=== PATIENT | female | born 1965 | race Caucasian/White ===

== ENCOUNTER 2018-06-22 05:28 | Outpatient (CLI) | payer MEDICARE ==
[~2018-06-22] VITALS: Ht 162.6 cm; Wt 60.3 kg
[~2018-06-22 05:28] MED LIST: ALN70T; FAMO20TA13; NFCORC1000; OMEP-10; TES; [UNRECOGNIZED DRUG - OTHER]
[2018-06-22] MEDS ORDERED: LEVO75TA6 PO (09:12)
[2018-06-22] MEDS ORDERED: [UNRECOGNIZED DRUG - CODE] MC (09:12)
[2018-06-22] MEDS ORDERED: PRED5TAB PO (09:12)
[2018-06-22] MEDS ORDERED: ALBU0.63 IH (09:12)
[2018-06-22] MEDS ORDERED: ATOR20TA49 PO (09:12)
[2018-06-22] MEDS ORDERED: TRAM50TA2 PO (09:12)
[2018-06-22] MEDS ORDERED: DIPH25CA79 PO (09:12)
[2018-06-22] MEDS ORDERED: TRAZ-189 PO (09:12)
== END 2018-06-22 09:26 ==
LOC: PREOP 05:28
PROVIDERS: ATTEND Otolaryngology Otolaryngology/Facial Plastic Surgery
DX: Z01.818 Encounter for other preprocedural examination (principal)

== ENCOUNTER 2018-06-26 07:38 | Day surgery (SDC) | payer MEDICARE ==
[~2018-06-26] VITALS: Ht 162.6 cm; Wt 60.3 kg
[~2018-06-26 07:38] MED LIST changes: +ALBU0.63 IH; +ATOR20TA49 PO; +DIPH25CA79 PO; +LEVO75TA6 PO; +PRED5TAB PO; +TRAM50TA2 PO; +TRAZ-189 PO; +[UNRECOGNIZED DRUG - CODE] MC
[2018-06-26 07:45] VITALS: BP 125/73
[2018-06-26] MEDS ORDERED: LACTATED RINGERS 1,000 ML IV PRN (07:47)
[2018-06-26] MEDS ORDERED: MIDAZOLAM 2 MG/2 ML (VERSED) VIAL IV ONE (09:00)
[2018-06-26] MEDS ORDERED: MIDAZOLAM 2 MG/2 ML (VERSED) VIAL ONE ×2 (09:02→09:17)
[2018-06-26] MEDS ORDERED: DEXAMETHASONE 10 MG/ML (DECADRON) 1 ML VIAL ONE (09:17)
[2018-06-26] MEDS ORDERED: fentaNYL INJECTION 100 MCG/2 ML AMP ONE ×2 (09:17→11:32)
[2018-06-26] MEDS ORDERED: LIDOCAINE PF 2% 5 ML (XYLOCAINE) VIAL ONE (09:17)
[2018-06-26] MEDS ORDERED: proPOfol 200 MG/20 ML (DIPRIVAN) VIAL IV ONE ×2 (09:17→11:37)
[2018-06-26] MEDS ORDERED: ONDANSETRON 4 MG/2 ML (SDV) Z0FRAN ONE (09:17)
[2018-06-26] MEDS ORDERED: ROCURONIUM 10 MG/ML 5 ML SYRINGE IV ONE (09:17)
[2018-06-26] MEDS ORDERED: PHENYLEPHRINE 0.5% NASAL SPR (NEO-SYNEPHRINE) REG ONE (09:22)
[2018-06-26] MEDS ORDERED: LIDOCAINE/EPI 1%-1:100,000 (XYLOCAINE) 20ML ONE (09:22)
[2018-06-26] MEDS ORDERED: SEVOFLURANE (ULTANE) 15 ML INHAL SOLN ONE (09:28)
[2018-06-26] MEDS ORDERED: NEOSTIGMINE 1 MG/ML 5 ML SYRINGE ONE (09:28)
[2018-06-26] MEDS ORDERED: GLYCOPYRROLATE 0.2 MG/ML (ROBINUL) 2 ML VIAL ONE (09:28)
--- NOTE | 2018-06-26 10:57 | Progress Note-Pre Operative ---
Pre-Operative Progress Note H&P Reviewed The H&P was reviewed, patient examined and no changes noted. 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
[2018-06-26] MEDS ORDERED: D5 1/2 NS W/KCL 20 MEQ/L 1,000 ML IV SCH (11:44)
--- NOTE | 2018-06-26 11:44 | Progress Note-Post Operative ---
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 Specimen(s) collected/removed none JALEN POWELL MD Jun 26, 2018 11:44
[2018-06-26] MEDS ORDERED: ACETAMINOPHEN 325 MG TABLET PO PRN (11:45)
[2018-06-26] MEDS ORDERED: PROMETHAZINE INJ 25 MG/ML (PHENERGAN) AMP IVP PRN (11:45)
[2018-06-26] MEDS ORDERED: HYDROcodone/APAP 5 MG/325 MG (LORTAB) TAB PO PRN (11:45)
[2018-06-26] MEDS ORDERED: SUCCINYLCHOLINE INJ 100 MG/5 ML SYR ONE (11:55)
[2018-06-26] MEDS ORDERED: ONDANSETRON 4 MG/2 ML (SDV) Z0FRAN IVP PRN (12:00)
[2018-06-26] MEDS ORDERED: morphine INJ 10 MG/ML 1ML (SYR OR VIAL) IVP ONE (12:00)
[2018-06-26 12:25] VITALS: BP 119/79
[2018-06-26] MEDS ORDERED: ACHD5005 PO (12:36)
[2018-06-26 12:55] VITALS: BP 120/80
[2018-06-26 13:10] VITALS: BP 120/80
--- NOTE | 2018-06-26 13:52 | Anesthesia-General Post-Op ---
General Patient Condition Mental Status/LOC: Same as Preop Cardiovascular: Satisfactory Nausea/Vomiting: Absent Respiratory: Satisfactory Pain: Controlled Complications: Absent Post Op Complications Complications None Follow Up Care/Instructions Patient Instructions None needed. Anesthesia/Patient Condition Patient Condition Patient is doing well, no complaints, stable vital signs, no apparent adverse anesthesia problems. No complications reported per nursing. ANNEMARIE OREILLY CRNA Jun 26, 2018 13:52
--- OUTSIDE RECORDS SUMMARY | 2018-06-28 08:26 | XMS REPORT ---
Author Author KELVIN GRULLON Organization [facility] [address] Address [address] [place] [address] Care Team Providers Care Family Engagement Specialist Name Role Phone KELVIN GRULLON Unavailable PROBLEMS Type Condition ICD9-CM Code DOO82-XH Code Onset Dates Condition Status SNOMED Code Problem Psoriatic spondylitis L40.53 Active 157859889 Problem Environmental allergies Z91.09 Active 847819914 Problem COPD (chronic obstructive pulmonary disease) J44.9 Active 57711470 Problem Mixed hyperlipidemia E78.2 Active 032558424 Problem Psoriasis L40.9 Active 8976079 Problem Neck pain M54.2 Active 21470859 Problem Hypothyroidism, unspecified E03.9 Active 01704515 Problem Postmenopausal osteoporosis M81.0 Active 888964780 Problem Degenerative disc disease, cervical M50.30 Active 98530984 Problem Major depressive disorder, recurrent, severe with psychotic symptoms F33.3 Active 85997522 Problem Overactive bladder N32.81 Active 803970008 Problem Chronic fatigue R53.82 Active 31685212 Problem Hematuria R31.9 Active 08015303 Problem Increased frequency of urination R35.0 Active 579140822 Problem Pubic bone pain M89.9 Active 43451068 ALLERGIES Substance Reaction Event Type Date Status Naproxen Unknown Drug Allergy Mar, Active Cymbalta " Out of Space" Drug Allergy Mar, Active ENCOUNTERS Encounter Location Date Diagnosis [facility] [address] [place] [address] Mar, Mixed hyperlipidemia E78.2 [facility] [address] [place] [address] Feb, [facility] [address] [place] [address] Feb, [facility] [address] [place] [address] Jan, Degenerative disc disease, cervical M50.30 [facility] [address] [place] [address] Jan, [facility] [address] [place] [address] Jan, [facility] [address] [place] [address] [place] [address] Nov, [facility] [address] [place] [address] Oct, [facility] [place] [address] [place] [address] Oct, [facility] [place] [address] [place] [address] Oct, Fungal infection of toenail B35.1 ; Postmenopausal osteoporosis M81.0 and Psoriasis L40.9 [facility] [address] [place] [address] Jul, [facility] [address] [place] [address] Jul, Hypothyroidism, unspecified E03.9 [facility] [address] [place] [address] Jul, Degenerative disc disease, cervical M50.30 [facility] [address] [place] [address] 04 Jul, 2017 Medicare annual wellness visit, initial Z00.00 ; Encounter for immunization Z23 ; Chronic obstructive pulmonary disease, unspecified J44.9 and Patient smokes within 5 minutes of waking Z72.0 [facility] [address] [place] [address] Jun, Neck pain M54.2 and Degenerative disc disease, cervical M50.30 [facility] [address] [place] [address] Jun, Osteoporosis M81.0 ; Hypothyroidism, unspecified E03.9 ; Neck pain M54.2 and COPD (chronic obstructive pulmonary disease) J44.9 [facility] [address] [place] [address] Mar, COPD ( chronic obstructive pulmonary disease) J44.9 and Hypothyroidism, unspecified E03.9 [facility] [address] [place] [address] Feb, [facility] [address] [address] Jan, Pubic bone pain M89.9 ; Chronic fatigue R53.82 ; COPD (chronic obstructive pulmonary disease) J44.9 and Hypothyroidism, unspecified E03.9 [facility] [address] [place] [address] Sep, [facility] [address] [place] [address] August, COPD ( chronic obstructive pulmonary disease) J44.9 [facility] [address] [address] Apr, Environmental allergies Z91.09 [facility] [address] [place] [address] Apr, Environmental allergies Z91.09 [facility] [address] [address] Apr, Environmental allergies Z91.09 and COPD (chronic obstructive pulmonary disease) J44.9 [facility] [address] [place] [address] Mar, [facility] [address] [address] Feb, COPD ( chronic obstructive pulmonary disease) J44.9 [facility] [address] [address] Jan, Dysuria R30.[address] [facility] [address] [address] Dec, Other specified bacterial agents as the cause of diseases classified elsewhere B96.89 and Acute sinusitis, unspecified J01.90 [facility] [address] [address] Dec, Psoriatic arthritis L40.50 and Hypothyroidism, unspecified E03.9 [facility] [address] [place] [address] Oct, Osteoporosis M81.0 [facility] [address] [place] [address] Oct, Psoriatic spondylitis L40.53 ; Osteoporosis M81.0 and Pubic bone pain M89.[address] [address] Jun, Pelvic pain R10.2 and Other constipation K59.[address] [address] May, [address] [address] May, [address] [address] May, [facility] [address] [address] Apr, 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 and Chronic fatigue R53.[address] [address] Mar, [address] [address] Mar, [address] [address] Mar, Overactive bladder N32.81 ; Increased frequency of urination R35.0 ; Hematuria R31.9 and Major depressive disorder, recurrent, severe with psychotic symptoms F33.[address] [address] Jan, Increased frequency of urination R35.0 ; Overactive bladder N32.81 ; Major depressive disorder, recurrent, severe with psychotic symptoms F33.3 and Chronic fatigue R53.[address] [address] Jan, [address] [address] Dec, Influenza vaccine administered V04.81 ; 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 ; Nocturnal hypoxia 327.24 ; Current tobacco use 305.1 and Pneumococcal vaccination administered at current visit V49.[address] [address] Oct, Nocturnal hypoxia 327.24 [facility] [address] [place] [address] Oct, 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 ; 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 and Other malaise and fatigue 780.79 [facility] [address] [place] [address] 16 Oct, 2014 Other malaise and fatigue 780.[address] [address] Oct, Unspecified hypothyroidism 244.9 ; Other malaise and fatigue 780.79 ; Asthma, unspecified, unspecified status 493.90 ; Rash and nonspecific skin eruption 782.1 ; Family history of breast cancer in female V16.3 ; H/O breast implant V43.82 and Other screening mammogram V76.[address] [address] Sep, [address] [address] August, 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 ; Other malaise and fatigue 780.79 ; Exercise counseling V65.41 ; Unspecified hypothyroidism 244.9 and 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 [place] [address] Jul, [place] [id number] [place] [address] Jul, [address] [address] May, [id number] [place] [address] May, [address] [address] May, [place] [id number] [place] [address] Apr, [address] [address] Apr, [facility] [place] [address] [facility] [place] [address] Apr, [facility] [id number] [address] Apr, [facility] [id number] [address] Feb, [facility] [id number] [address] Feb, [facility] [place] [address] [place] [address] Feb, [facility] [place] [address] [place] [address] Jan, [facility] [id number] [address] Jan, [facility] [id number] [address] Oct, [facility] [place] [address] [place] [address] Oct, [facility] [id number] [address] Oct, [facility] [id number] [address] Jun, [facility] [place] [address] [place] [address] Jun, [facility] [place] [address] [place] [address] Apr, [facility] [id number] [address] Apr, [facility] [place] [address] [place] [address] Mar, [facility] [id number] [address] Mar, [facility] [id number] [address] Mar, [facility] [place] [address] [facility] [place] [address] Mar, [facility] [place] [address] [facility] [place] [address] Feb, [facility] [id number] [address] Feb, [facility] [place] [address] [facility] [place] [address] Jan, [facility] [place] [address] [place] [address] Jan, [facility] [id number] [place] [address] Jan, [facility] [id number] [address] Jan, [facility] [id number] [place] [address] Jan, [facility] [place] [address] [place] [address] Jan, [facility] [place] [address] [place] [address] Jan, [facility] [id number] [address] Jan, [facility] [place] [address] [place] [address] Dec, [facility] [id number] [address] Dec, [facility] [id number] [address] Nov, [facility] [id number] [address] Oct, [facility] [id number] [address] Oct, [facility] [id number] [address] Oct, [facility] [id number] [address] Oct, [facility] [id number] [address] August, [facility] [id number] [address] August, [facility] [id number] [address] August, [facility] [id number] [address] August, [facility] [id number] [address] Jul, [facility] [id number] [address] Jul, IMMUNIZATIONS No Known Immunizations SOCIAL HISTORY Never Assessed REASON FOR VISIT started cholesterol medication again and needed refill, also has head congestion for the past month Samuel Rocha RN PLAN OF CARE Activity Details Follow Up prn Reason: VITAL SIGNS Height 65 in 2018-04-01 Weight 141.4 lbs 2018-04-01 Temperature 98.5 degrees Fahrenheit 2018-04-01 Heart Rate 94 bpm 2018-04-01 Respiratory Rate 18 2018-04-01 Oximetry 97 % 2018-04-01 BMI 23.53 kg/m2 2018-04-01 Blood pressure systolic 130 mmHg 2018-04-01 Blood pressure diastolic 68 mmHg 2018-04-01 MEDICATIONS Medication Instructions Dosage Frequency Start Date End Date Duration Status Albuterol Sulfate (2.5 MG/3ML) 0.083% USE 1 AMPULE FOUR TIMES DAILY PER NEBULIZER 30 Not-Taking fluticasone 50 mcg/actuation 2 sprays by Nasal route 1 time per day Jan, Not-Taking Cefuroxime Axetil 250 MG Orally every 12 hrs 1 tablet 12h Mar, 14 days Active Lamisil 250 MG Orally Once a day 1 tablet 24h Oct, Not- Taking ProAir HFA 108 (90 Base) MCG/ACT Inhalation every 4 hrs 2 puffs as needed 4h Not-Taking Fosamax 70 MG Orally once weekly 1 tablet Not-Taking Budesonide 0.5 MG/2ML USE 1 AMPULE FOUR TIMES DAILY PER NEBULIZER 15 Not-Taking Albuterol Sulfate HFA 108 (90 Base) MCG/ACT Inhalation every 6 hrs 2 puffs as needed 6h Jun, Not-Taking Prozac Not-Taking Claritin 10 MG Orally Once a day 1 tablet 24h Not-Taking Tramadol HCl 50 mg Orally every 8 hrs 1-2 tablet as needed 8h Not- Taking VESIcare 10 MG Orally Once a day 1 tablet 24h Mar, Not- Taking Atorvastatin Calcium 20 mg Orally Once a day 1 tablet 24h Jul, Active Benadryl 50 mg Orally once or twice a day as needed for allergies Not-Taking Folic Acid by Oral route Jul, Not-Taking Hydrocodone-Acetaminophen 5-325 MG Orally 2 times a day prn severe pain 1 tablet as needed Nov, Not-Taking Levothyroxine Sodium 75 MCG Orally Once a day 1 tablet 24h Not- Taking trazodone 50 mg 1 Tablet by Oral route 1 time per day at bedtime Oct Not-Taking Meloxicam 15 MG TAKE ONE-HALF TABLET BY MOUTH TWICE DAILY 30 Not -Taking Albuterol Sulfate (2.5 MG/3ML) 0.083% Inhalation 4 times a day 3 ml 6h 30 Not-Taking PredniSONE 5 mg 1.5 Tablet by Oral route 1 time per day Jul, Not-Taking RESULTS No Results PROCEDURES Procedure Date Ordered Result Body Site [facility] VISIT ESTABLISHED PATIENT Apr 01, 2018 INSTRUCTIONS MEDICATIONS ADMINISTERED No Known Medications MEDICAL (GENERAL) HISTORY Type Description Date Medical History Psoriatic arthropathy Medical History Major depressive disorder, recurrent episode, unspecified Medical History Agoraphobia with panic disorder Medical History Unspecified myalgia and myositis Medical History Chronic airway obstruction, not elsewhere classified Medical History Other malaise and fatigue Medical History Other specified acquired hypothyroidism Medical History Major depressive disorder, recurrent episode, severe, specified as with psychotic behavior Medical History Suicide and self-inflicted injury by unspecified means Medical History Unspecified hypothyroidism Medical History COPD (chronic obstructive pulmonary disease) Surgical History hysterectomy Hospitalization History Hospitalization for surgery only
--- OUTSIDE RECORDS SUMMARY | 2018-06-28 08:27 | XMS REPORT ---
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 Active 271292651 Problem Psoriasis L40.9 Active 8677913 Problem Postmenopausal osteoporosis M81.0 Active 388362216 Problem Hypothyroidism, unspecified E03.9 Active 16325773 Problem Environmental allergies Z91.09 Active 870512258 Problem Degenerative disc disease, cervical M50.30 Active 84063553 Problem Neck pain M54.2 Active 12381151 Problem Increased frequency of urination R35.0 Active 606366381 Problem Major depressive disorder, recurrent, severe with psychotic symptoms F33.3 Active 29432716 Problem Suicide and self-inflicted injury by unspecified means E958.9 Active Problem Overactive bladder N32.81 Active 072068224 Problem Chronic fatigue R53.82 Active 96710769 Problem Hematuria R31.9 Active 93078310 ALLERGIES No Information ENCOUNTERS Encounter Location Date Diagnosis [facility] [address] [place] [address] Jan, Degenerative disc disease, cervical M50.30 [facility] [address] [place] [address] Jan, [facility] [address] [place] [address] Jan, [facility] [address] [place] [address] Nov, [facility] [address] [place] [address] Oct, [address] [address] Oct, [facility] [address] [address] Oct, Fungal infection of toenail B35.1 ; Postmenopausal osteoporosis M81.0 and Psoriasis L40.9 [facility] [address] [address] Jul, [facility] [address] [address] Jul, Hypothyroidism, unspecified E03.9 [facility] [address] [address] Jul, Degenerative disc disease, cervical M50.30 [facility] [address] [address] Jul, Medicare annual wellness visit, initial Z00.00 ; Encounter for immunization Z23 ; Chronic obstructive pulmonary disease, unspecified J44.9 and Patient smokes within 5 minutes of waking Z72.0 [facility] [address] [address] Jun, Neck pain M54.2 and Degenerative disc disease, cervical M50.[address] [address] Jun, Osteoporosis M81.0 ; Hypothyroidism, unspecified E03.9 ; Neck pain M54.2 and COPD (chronic obstructive pulmonary disease) J44.[address] [address] Mar, COPD ( chronic obstructive pulmonary disease) J44.9 and Hypothyroidism, unspecified E03.9 [facility] [address] [address] Feb, [address] [address] Jan, Pubic bone pain M89.9 ; Chronic fatigue R53.82 ; COPD (chronic obstructive pulmonary disease) J44.9 and Hypothyroidism, unspecified E03.[address] [address] Sep, [facility] [address] [place] [address] August, COPD ( chronic obstructive pulmonary disease) J44.9 [facility] [address] [address] Apr, Environmental allergies Z91.09 [facility] [address] [address] Apr, Environmental allergies Z91.09 [facility] [address] [address] Apr, Environmental allergies Z91.09 and COPD (chronic obstructive pulmonary disease) J44.9 [facility] [address] [address] Mar, [facility] [address] [address] Feb, COPD ( chronic obstructive pulmonary disease) J44.[address] [address] Jan, Dysuria R30.[address] [address] 19 Dec, 2015 Other specified bacterial agents as the cause of diseases classified elsewhere B96.89 and Acute sinusitis, unspecified J01.[address] [address] 13 Dec, 2015 Psoriatic arthritis L40.50 and Hypothyroidism, unspecified E03.[address] [address] 15 Oct, 2015 Osteoporosis M81.[address] [address] 11 Oct, 2015 Psoriatic spondylitis L40.53 ; Osteoporosis M81.0 and Pubic bone pain M89.[address] [address] 07 Jun, 2015 Pelvic pain R10.2 and Other constipation K59.[address] [address] May, [address] [place] [address] May, [facility] [address] [address] May, [facility] [address] [address] Apr, 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 and Chronic fatigue R53.82 [facility] [address] [address] Mar, [facility] [address] [address] Mar, [facility] [address] [address] Mar, Overactive bladder N32.81 ; Increased frequency of urination R35.0 ; Hematuria R31.9 and Major depressive disorder, recurrent, severe with psychotic symptoms F33.[address] [address] Jan, Increased frequency of urination R35.0 ; Overactive bladder N32.81 ; Major depressive disorder, recurrent, severe with psychotic symptoms F33.3 and Chronic fatigue R53.[address] [address] Jan, [facility] [address] [address] Dec, Influenza vaccine administered V04.81 ; 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 ; Nocturnal hypoxia 327.24 ; Current tobacco use 305.1 and Pneumococcal vaccination administered at current visit V49.[address] [address] Oct, Nocturnal hypoxia 327.[address] [address] Oct, 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41 ; Unspecified hypothyroidism 244.9 and 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 [place] [id number] [place] [address] Jul, [place] [id number] [place] [address] Jul, [address] [address] May, [place] [id number] [place] [address] May, [place] [id number] [place] [address] May, [place] [id number] [place] [address] Apr, [address] [address] Apr, [address] [address] Apr, [place] [id number] [place] [address] Apr, [facility] [address] [place] [id number] [place] [address] Feb, [facility] [address] [place] [id number] [place] [address] Feb, [facility] [place] [address] [place] [address] Feb, [facility] [place] [address] [place] [facility] [place] [address] Jan, [facility] [address] [facility] [id number], [place] [address] Jan, [facility] [address] [id number], [place] [address] Oct, [facility] [place] [address] [place] [address] Oct, [facility] [address] [id number], [place] [address] Oct, [facility] [address] [id number], [place] [address] Jun, [facility] [place] [address] [place] [address] Jun, [facility] [place] [address] [place] [address] Apr, [facility] [address] [id number], [place] [address] Apr, [facility] [place] [address] [place] [address] Mar, [facility] [address] [id number], [place] [address] Mar, [facility] [address] [id number], [place] [address] Mar, [facility] [place] [address] [place] [address] Mar, [facility] [place] [address] [place] [address] Feb, [facility] [address] [id number], [place] [address] Feb, [facility] [place] [address] [place] [address] Jan, [facility] [place] [address] [facility] [place] [address] Jan, [facility] [address] [id number], [place] [address] Jan, [facility] [address] [id number], [place] [address] Jan, [facility] [address] [id number], [place] [address] Jan, [facility] [place] [address] [place] [facility] [place] [address] Jan, [facility] [place] [address] [place] [facility] [place] [address] Jan, [facility] [address] [id number], [place] [address] Jan, [facility] [place] [address] [place] [facility] [place] [address] Dec, [facility] [address] [id number], [place] [address] Dec, [facility] [address] [id number], [place] [address] Nov, [facility] [address] [id number], [place] [address] Oct, [facility] [address] [id number], [place] [address] Oct, [facility] [address] [facility] [id number], [place] [address] Oct, [facility] [address] [facility] [id number][place] [address] Oct, [facility] [address] [facility] [id number], [place] [address] August, [facility] [address] [id number], [place] [address] August, [facility] [address] [facility] [id number], [place] [address] August, [facility] [address] [id number], [place] [address] August, [facility] [address] [facility] [id number], [place] [address] Jul, [facility] [address] [facility] [id number], [place] [address] Jul, IMMUNIZATIONS No Known Immunizations SOCIAL HISTORY Never Assessed REASON FOR VISIT Requests return call PLAN OF CARE VITAL SIGNS MEDICATIONS Unknown Medications RESULTS No Results PROCEDURES No Known procedures INSTRUCTIONS MEDICATIONS ADMINISTERED No Known Medications MEDICAL [...]
--- OUTSIDE RECORDS SUMMARY | 2018-06-28 08:27 | XMS REPORT ---
Author Author KELVIN GRULLON Organization [facility] [address] Address [address] [place] [address] Care Team Providers Care [employer] Name Role Phone KELVIN GRULLON Unavailable PROBLEMS Type Condition ICD9-CM Code ZXB91-KT Code Onset Dates Condition Status SNOMED Code Problem Pubic bone pain M89.9 Active 17748457 Problem COPD (chronic obstructive pulmonary disease) J44.9 Active 78902721 Problem Psoriatic spondylitis L40.53 Active 560920601 Problem Psoriasis L40.9 Active 1810161 Problem Postmenopausal osteoporosis M81.0 Active 430720836 Problem Hypothyroidism, unspecified E03.9 Active 77674928 Problem Environmental allergies Z91.09 Active 062425484 Problem Degenerative disc disease, cervical M50.30 Active 90388277 Problem Neck pain M54.2 Active 80081192 Problem Increased frequency of urination R35.0 Active 071297906 Problem Major depressive disorder, recurrent, severe with psychotic symptoms F33.3 Active 91931210 Problem Suicide and self-inflicted injury by unspecified means E958.9 Active Problem Overactive bladder N32.81 Active 896826693 Problem Chronic fatigue R53.82 Active 47553160 Problem Hematuria R31.9 Active 17391922 ALLERGIES No Information ENCOUNTERS Encounter Location Date Diagnosis [facility] [address] [place] [address] Nov, [facility] [address] [place] [address] Oct, [facility] [address] [place] [address] Oct, [facility] [address] [place] [address] Oct, Fungal infection of toenail B35.1 ; Postmenopausal osteoporosis M81.0 and Psoriasis L40.9 [facility] [address] [place] [address] Jul, [facility] [place] [address] [place] [address] Jul, Hypothyroidism, unspecified E03.9 [facility] [place] [address] [place] [address] Jul, Degenerative disc disease, cervical M50.30 [facility] [place] [address] [place] [address] Jul, Medicare annual wellness visit, initial Z00.00 ; Encounter for immunization Z23 ; Chronic obstructive pulmonary disease, unspecified J44.9 and Patient smokes within 5 minutes of waking Z72.0 [facility] [place] [address] [place] [address] 15 Jun, 2017 Neck pain M54.2 and Degenerative disc disease, cervical M50.30 [facility] [place] [address] [place] [address] Jun, Osteoporosis M81.0 ; Hypothyroidism, unspecified E03.9 ; Neck pain M54.2 and COPD (chronic obstructive pulmonary disease) J44.9 [facility] [place] [address] [place] [address] Mar, COPD ( chronic obstructive pulmonary disease) J44.9 and Hypothyroidism, unspecified E03.9 [facility] [place] [address] [place] [address] Feb, [facility] [address] [address] Jan, Pubic bone pain M89.9 ; Chronic fatigue R53.82 ; COPD (chronic obstructive pulmonary disease) J44.9 and Hypothyroidism, unspecified E03.9 [facility] [place] [address] [place] [address] Sep, [facility] [place] [address] [place] [address] August, COPD ( chronic obstructive pulmonary disease) J44.9 [facility] [place] [address] [place] [address] Apr, Environmental allergies Z91.[address] [address] Apr, Environmental allergies Z91.09 [facility] [place] [address] [place] [address] Apr, Environmental allergies Z91.09 and COPD (chronic obstructive pulmonary disease) J44.9 [facility] [address] [place] [address] Mar, [facility] [address] [address] Feb, COPD ( chronic obstructive pulmonary disease) J44.9 [facility] [address] [place] [address] Jan, Dysuria R30.[address] [address] 19 Dec, 2015 Other specified bacterial agents as the cause of diseases classified elsewhere B96.89 and Acute sinusitis, unspecified J01.[address] [address] Dec, Psoriatic arthritis L40.50 and Hypothyroidism, unspecified E03.[address] [address] Oct, Osteoporosis M81.[address] [address] Oct, Psoriatic spondylitis L40.53 ; Osteoporosis M81.0 and Pubic bone pain M89.[address] [address] Jun, Pelvic pain R10.2 and Other constipation K59.[address] [address] May, [address] [address] May, [address] [address] May, [address] [address] Apr, 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 and Chronic fatigue R53.[address] [address] Mar, [address] [address] Mar, [address] [address] Mar, Overactive bladder N32.81 ; Increased frequency of urination R35.0 ; Hematuria R31.9 and Major depressive disorder, recurrent, severe with psychotic symptoms F33.[address] [address] Jan, Increased frequency of urination R35.0 ; Overactive bladder N32.81 ; Major depressive disorder, recurrent, severe with psychotic symptoms F33.3 and Chronic fatigue R53.[address] [address] Jan, [address] [address] Dec, Influenza vaccine administered V04.81 ; 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 ; Nocturnal hypoxia 327.24 ; Current tobacco use 305.1 and Pneumococcal vaccination administered at current visit V49.[address] [address] Oct, Nocturnal hypoxia 327.[address] [address] Oct, 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 ; 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 and Other malaise and fatigue 780.[address] [address] 16 Oct, 2014 Other malaise and fatigue 780.[address] [address] 15 Oct, 2014 Unspecified hypothyroidism 244.9 ; Other malaise and fatigue 780.79 ; Asthma, unspecified, unspecified status 493.90 ; Rash and nonspecific skin eruption 782.1 ; Family history of breast cancer in female V16.3 ; H/O breast implant V43.82 and Other screening mammogram V76.12 [facility] [place] [address] [place] [address] Sep, [facility] [place] [address] [place] [address] August, 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 ; Other malaise and fatigue 780.79 ; Exercise counseling V65.41 ; Unspecified hypothyroidism 244.9 and 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 [facility] [id number] [place] [address] Jul, [facility] [id number] [place] [address] Jul, [facility] [address] [place] [address] May, [facility] [id number] [place] [address] May, [facility] [address] [place] [id number] [place] [address] May, [facility] [id number] [place] [address] Apr, [facility] [address] [place] [address] Apr, [facility] [address] [place] [address] Apr, [facility] [address] [place], [place] [address] Apr, [facility] [id number] [place] [address] Feb, [facility] [address] [place] [id number] [place] [address] Feb, [facility] [place] [address] [place] [address] Feb, [facility] [place] [address] [place] [address] Jan, [facility] [id number] [place] [address]14 Jan, [facility] [address]65[address], [place] [address] Oct, [facility] [place] [address] [place] [address] Oct, [facility] [address]65[address], [place] [address] Oct, [facility] [address], [place] [address] Jun, [facility] [place] [address] [place] [address] Jun, [facility] [place] [address] [place] [address] Apr, [facility] [address], [place] [address] Apr, [facility] [place] [address] [place] [address] Mar, [facility] [address], [place] [address]- 1733 Mar, [facility] [address], [place] [address] Mar, [facility] [place] [address] [place] [address] Mar, [facility] [place] [address] [place] [address] Feb, [facility] [address], [place] [address]- [address] Feb, [facility] [place] [address] [place] [address] Jan, [facility] [place] [address] [place] [address] Jan, [facility] [address] [id number], [place] [address] Jan, [facility] [id number] [place] [address] [place] [address] Jan, [facility] [address] [id number], [place] [address] Jan, [facility] [place] [address] [place] [facility] [address] Jan, [facility] [place] [address] [place] [facility] [address] Jan, [facility] [address] [id number], [place] [address] Jan, [facility] [place] [address] [place] [address] Dec, [facility] [address] [id number], [place] [address] Dec, [facility] [address] [facility] [id number], [place] [address] Nov, [facility] [address] [id number], [place] [address] Oct, [facility] [address] [id number], [place] [address] Oct, [facility] [address] [facility] [id number], [place] [address] Oct, [facility] [address] [facility] [id number], [place] [address] Oct, [facility] [address] [id number], [place] [address] August, [facility] [address] [id number], [place] [address] August, [facility] [address] [facility] [id number], [place] [address] August, [facility] [address] [facility] [id number], [place] [address] August, [facility] [address] [id number], [place] [address] Jul, [facility] [address] [facility] [id number] [place] [address] Jul, IMMUNIZATIONS No Known Immunizations SOCIAL HISTORY Never Assessed REASON FOR VISIT Medication refill request PLAN OF CARE VITAL SIGNS MEDICATIONS Medication Instructions Dosage Frequency Start Date End Date Duration Status Hydrocodone-Acetaminophen 5-325 MG Orally 2 times a day prn severe pain 1 tablet as needed Nov, Active RESULTS No Results PROCEDURES No Known procedures [...]
--- OUTSIDE RECORDS SUMMARY | 2018-06-28 08:27 | XMS REPORT ---
Author Author KELVIN GRULLON Organization [facility] [address] Address [address] [place] [address] Care Team Providers Care Grades 1 Thru 6 Visiting Teacher Name Role Phone KELVIN GRULLON Unavailable PROBLEMS Type Condition ICD9-CM Code QNY02-JP Code Onset Dates Condition Status SNOMED Code Problem Pubic bone pain M89.9 Active 70155949 Problem COPD (chronic obstructive pulmonary disease) J44.9 Active 75504978 Problem Psoriatic spondylitis L40.53 Active 332608865 Problem Psoriasis L40.9 Active 1624909 Problem Postmenopausal osteoporosis M81.0 Active 079360587 Problem Hypothyroidism, unspecified E03.9 Active 39187348 Problem Environmental allergies Z91.09 Active 789297595 Problem Degenerative disc disease, cervical M50.30 Active 79282446 Problem Neck pain M54.2 Active 35744891 Problem Increased frequency of urination R35.0 Active 717427141 Problem Major depressive disorder, recurrent, severe with psychotic symptoms F33.3 Active 61291129 Problem Suicide and self-inflicted injury by unspecified means E958.9 Active Problem Overactive bladder N32.81 Active 877488047 Problem Chronic fatigue R53.82 Active 89784882 Problem Hematuria R31.9 Active 72821235 ALLERGIES No Information ENCOUNTERS Encounter Location Date [facility] [address] [place] [address] Jan, [facility] [address] [place] [address] Jan, [facility] [address] [place] [address] Nov, [facility] [address] [place] [address] Oct, [facility] [address] [place] [address] Oct, [facility] [address] [place] [address] Oct, Fungal infection of toenail B35.1 ; Postmenopausal osteoporosis M81.0 and Psoriasis L40.9 [facility] [address] [address] Jul, [facility] [address] [address] Jul, Hypothyroidism, unspecified E03.9 [facility] [address] [place] [address] Jul, Degenerative disc disease, cervical M50.30 [facility] [address] [place] [address] Jul, Medicare annual wellness visit, initial Z00.00 ; Encounter for immunization Z23 ; Chronic obstructive pulmonary disease, unspecified J44.9 and Patient smokes within 5 minutes of waking Z72.0 [facility] [address] [place] [address] 15 Jun, 2017 Neck pain M54.2 and Degenerative disc disease, cervical M50.30 [facility] [address] [address] Jun, Osteoporosis M81.0 ; Hypothyroidism, unspecified E03.9 ; Neck pain M54.2 and COPD (chronic obstructive pulmonary disease) J44.9 [facility] [address] [place] [address] Mar, COPD ( chronic obstructive pulmonary disease) J44.9 and Hypothyroidism, unspecified E03.9 [facility] [address] [address] Feb, [facility] [address] [address] Jan, Pubic bone pain M89.9 ; Chronic fatigue R53.82 ; COPD (chronic obstructive pulmonary disease) J44.9 and Hypothyroidism, unspecified E03.9 [facility] [address] [place] [address] Sep, [facility] [address] [address] August, COPD ( chronic obstructive pulmonary disease) J44.9 [facility] [address] [place] [address] Apr, Environmental allergies Z91.09 [facility] [address] [place] [address] Apr, Environmental allergies Z91.09 [facility] [address] [place] [address] Apr, Environmental allergies Z91.09 and COPD (chronic obstructive pulmonary disease) J44.9 [facility] [address] [place] [address] Mar, [facility] [address] [address] Feb, COPD ( chronic obstructive pulmonary disease) J44.9 [facility] [address] [place] [address] Jan, Dysuria R30.[address] [address] 19 Dec, 2015 Other specified bacterial agents as the cause of diseases classified elsewhere B96.89 and Acute sinusitis, unspecified J01.[address] [address] 13 Dec, 2015 Psoriatic arthritis L40.50 and Hypothyroidism, unspecified E03.9 [facility] [address] [place] [address] 15 Oct, 2015 Osteoporosis M81.0 [facility] [address] [place] [address] 11 Oct, 2015 Psoriatic spondylitis L40.53 ; Osteoporosis M81.0 and Pubic bone pain M89.9 [facility] [address] [place] [address] Jun, Pelvic pain R10.2 and Other constipation K59.[address] [address] May, [facility] [address] [place] [address] May, [facility] [address] [place] [address] May, [facility] [address] [place] [address] Apr, 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 and Chronic fatigue R53.[address] [address] Mar, [address] [address] Mar, [address] [address] Mar, Overactive bladder N32.81 ; Increased frequency of urination R35.0 ; Hematuria R31.9 and Major depressive disorder, recurrent, severe with psychotic symptoms F33.[address] [address] Jan, Increased frequency of urination R35.0 ; Overactive bladder N32.81 ; Major depressive disorder, recurrent, severe with psychotic symptoms F33.3 and Chronic fatigue R53.[address] [address] Jan, [address] [address] Dec, Influenza vaccine administered V04.81 ; 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 ; Nocturnal hypoxia 327.24 ; Current tobacco use 305.1 and Pneumococcal vaccination administered at current visit V49.[address] [address] Oct, Nocturnal hypoxia 327.[address] [address] Oct, 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 ; 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 and Other malaise and fatigue 780.[address] [address] Oct, Other malaise and fatigue 780.[address] [address] Oct, Unspecified hypothyroidism 244.9 ; Other malaise and fatigue 780.79 ; Asthma, unspecified, unspecified status 493.90 ; Rash and nonspecific skin eruption 782.1 ; Family history of breast cancer in female V16.3 ; H/O breast implant V43.82 and Other screening mammogram V76.12 [facility] [address] [place] [address] Sep, [facility] [address] [place] [address] August, 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 ; Other malaise and fatigue 780.79 ; Exercise counseling V65.41 ; Unspecified hypothyroidism 244.9 and 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 [place] [id number] [place] [address] Jul, [place] [id number] [place] [address] Jul, [address] [address] May, [place] [id number] [place] [address] May, [place] [id number] [place] [address] May, [place] [id number] [place] [address] Apr, [address] [address] Apr, [address] [address] Apr, [address] [address] Apr, [place] [id number] [place] [address] Feb, [place] [id number] [place] [address] Feb, [address] [address] Feb, [facility] [place] [address] [facility] [place] [address] Jan, [facility] [place] [address] [facility] [id number] [address] Jan, [facility] [place] [address] [facility] [id number], [place] [address] Oct, [facility] [place] [address] [place] [facility] [address] Oct, [facility] [place] [address] [facility] [id number], [place] [address] Oct, [facility] [place] [address] [place] [address] [id number], [place] [address] Jun, [facility] [place] [address] [place] [address] Jun, [facility] [place] [address] [place] [address] Apr, [facility] [place] [address] [id number] [address] Apr, [facility] [place] [address] [place] [address] Mar, [facility] [place] [address] [id number], [place] [address] Mar, [facility] [place] [address] [id number], [place] [address] Mar, [facility] [place] [address] [place] [address] Mar, [facility] [place] [address] [place] [address] Feb, [facility] [place] [address] [id number], [place] [address] Feb, [facility] [place] [address] [place] [address] Jan, [facility] [place] [address] [place] [address] Jan, [facility] [address] [id number] [place] [address] Jan, [facility] [address] [id number] [place] [address] Jan, [facility] [address] [facility] [id number] [place] [address] Jan, [facility] [place] [address] [facility] [place] [address] Jan, [facility] [place] [address] [place] [facility] [address] Jan, [facility] [address] [facility] [id number] [place] [address] Jan, [facility] [place] [address] [facility] [place] [address] Dec, [facility] [address] [facility] [id number] [place] [address] Dec, [facility] [address] [facility] [id number] [place] [address] Nov, [facility] [address] [id number] [place] [address] Oct, [facility] [address] [facility] [id number] [place] [address] Oct, [facility] [address] [id number] [place] [address] Oct, [facility] [address] [id number] [place] [address] Oct, [facility] [address] [id number] [place] [address] August, [facility] [address] [facility] [id number] [place] [address] August, [facility] [address] [facility] [id number] [place] [address] August, [facility] [place] [address] [facility] [id number] [place] [address] August, [facility] [place] [address] [facility] [id number] [place] [address] Jul, [facility] [place] [address] [facility] [id number] [place] [address] Jul, IMMUNIZATIONS No Known Immunizations SOCIAL HISTORY Never Assessed REASON FOR VISIT Need updated referral PLAN OF CARE VITAL SIGNS MEDICATIONS Unknown [...]
--- OUTSIDE RECORDS SUMMARY | 2018-06-28 08:27 | XMS REPORT ---
Author Author KELVIN GRULLON Organization [facility] [address] Address [address] [place] [address] Care Team Providers Care Mortgage Loan Officer Originator Name Role Phone KELVIN GRULLON Unavailable PROBLEMS Type Condition ICD9-CM Code NOM25-NS Code Onset Dates Condition Status SNOMED Code Problem Pubic bone pain M89.9 Active 35709411 Problem COPD (chronic obstructive pulmonary disease) J44.9 Active 75224632 Problem Psoriatic spondylitis L40.53 Active 750255390 Problem Psoriasis L40.9 Active 7488854 Problem Postmenopausal osteoporosis M81.0 Active 165413052 Problem Hypothyroidism, unspecified E03.9 Active 95027153 Problem Environmental allergies Z91.09 Active 184807161 Problem Degenerative disc disease, cervical M50.30 Active 30032981 Problem Neck pain M54.2 Active 09629087 Problem Increased frequency of urination R35.0 Active 850952122 Problem Major depressive disorder, recurrent, severe with psychotic symptoms F33.3 Active 07934919 Problem Suicide and self-inflicted injury by unspecified means E958.9 Active Problem Overactive bladder N32.81 Active 646661584 Problem Chronic fatigue R53.82 Active 24904909 Problem Hematuria R31.9 Active 46923330 ALLERGIES No Information ENCOUNTERS Encounter Location Date Diagnosis [facility] [address] [place] [address] Feb, [facility] [address] [place] [address] Feb, [facility] [address] [place] [address] Jan, Degenerative disc disease, cervical M50.30 [facility] [place] [address] [place] [address] Jan, [facility] [address] [place] [address] Jan, [facility] [address] [place] [address] Nov, [facility] [place] [address] [place] [address] Oct, [facility] [place] [address] [place] [address] Oct, [facility] [place] [address] [place] [address] Oct, Fungal infection of toenail B35.1 ; Postmenopausal osteoporosis M81.0 and Psoriasis L40.9 [facility] [place] [address] [place] [address] Jul, [facility] [address] [address] Jul, Hypothyroidism, unspecified E03.9 [facility] [place] [address] [place] [address] Jul, Degenerative disc disease, cervical M50.30 [facility] [address] [address] 04 Jul, 2017 Medicare annual wellness visit, initial Z00.00 ; Encounter for immunization Z23 ; Chronic obstructive pulmonary disease, unspecified J44.9 and Patient smokes within 5 minutes of waking Z72.0 [facility] [place] [address] [place] [address] Jun, Neck pain M54.2 and Degenerative disc disease, cervical M50.30 [facility] [place] [address] [place] [address] Jun, Osteoporosis M81.0 ; Hypothyroidism, unspecified E03.9 ; Neck pain M54.2 and COPD (chronic obstructive pulmonary disease) J44.9 [facility] [place] [address] [place] [address] Mar, COPD ( chronic obstructive pulmonary disease) J44.9 and Hypothyroidism, unspecified E03.9 [facility] [place] [address] [place] [address] Feb, [facility] [address] [address] Jan, Pubic bone pain M89.9 ; Chronic fatigue R53.82 ; COPD (chronic obstructive pulmonary disease) J44.9 and Hypothyroidism, unspecified E03.9 [facility] [place] [address] [place] [address] Sep, [facility] [address] [address] August, COPD ( chronic obstructive pulmonary disease) J44.9 [facility] [place] [address] [place] [address] Apr, Environmental allergies Z91.09 [facility] [place] [address] [place] [address] Apr, Environmental allergies Z91.09 [facility] [address] [address] Apr, Environmental allergies Z91.09 and COPD (chronic obstructive pulmonary disease) J44.9 [facility] [address] [address] Mar, miEVGENY [address] [address] Feb, COPD ( chronic obstructive pulmonary disease) J44.9 [facility] [address] [address] Jan, Dysuria R30.0 [facility] [address] [address] 19 Dec, 2015 Other specified bacterial agents as the cause of diseases classified elsewhere B96.89 and Acute sinusitis, unspecified J01.90 [facility] [address] [address] 13 Dec, 2015 Psoriatic arthritis L40.50 and Hypothyroidism, unspecified E03.9 [facility] [place] [address] [place] [address] 15 Oct, 2015 Osteoporosis M81.0 [facility] [address] [address] Oct, Psoriatic spondylitis L40.53 ; Osteoporosis M81.0 and Pubic bone pain M89.9 [facility] [address] [address] Jun, Pelvic pain R10.2 and Other constipation K59.[address] [address] May, [facility] [address] [address] May, [facility] [address] [address] May, [facility] [address] [address] Apr, 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 and Chronic fatigue R53.[address] [address] Mar, [facility] [address] [address] Mar, [facility] [address] [address] Mar, Overactive bladder N32.81 ; Increased frequency of urination R35.0 ; Hematuria R31.9 and Major depressive disorder, recurrent, severe with psychotic symptoms F33.[address] [address] Jan, Increased frequency of urination R35.0 ; Overactive bladder N32.81 ; Major depressive disorder, recurrent, severe with psychotic symptoms F33.3 and Chronic fatigue R53.[address] [address] Jan, [address] [address] Dec, Influenza vaccine administered V04.81 ; 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 ; Nocturnal hypoxia 327.24 ; Current tobacco use 305.1 and Pneumococcal vaccination administered at current visit V49.[address] [address] Oct, Nocturnal hypoxia 327.[address] [address] Oct, 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 [address] [place] [address] Oct, Unspecified hypothyroidism 244.9 ; Other malaise and fatigue 780.79 ; Asthma, unspecified, unspecified status 493.90 ; Rash and nonspecific skin eruption 782.1 ; Family history of breast cancer in female V16.3 ; H/O breast implant V43.82 and Other screening mammogram V76.12 [facility] [address] [place] [address] Sep, [address] [address] August, 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 ; Other malaise and fatigue 780.79 ; Exercise counseling V65.41 ; Unspecified hypothyroidism 244.9 and 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 [address] Jul, [place] [id number] [place] [address] Jul, [facility] [address] [place] [address] May, [place] [id number] [place] [address] May, [place] [id number] [place] [address] May, [place] [id number] [place] [address] Apr, [facility] [address] [place] [address] Apr, [address] [address] Apr, [place] [id number] [place] [address] Apr, [facility] [address] [facility] [id number] [address] Feb, [facility] [address] [facility] [id number][place] [address] Feb, [facility] [place] [address] [place] [address] Feb, [facility] [place] [address] [place] [address] Jan, [facility] [address] [facility] [id number], [place] [address] Jan, [facility] [address] [facility] [id number][place] [address] Oct, [facility] [place] [address] [place] [address] Oct, [facility] [address] [id number] [address] Oct, [facility] [address] [id number], [place] [address] Jun, [facility] [place] [address] [place] [address] Jun, [facility] [place] [address] [place] [address] Apr, [facility] [address] [id number], [place] [address] Apr, [facility] [place] [address] [place] [address] Mar, [facility] [address] [id number] [address] Mar, [facility] [address] [id number], [place] [address] Mar, [facility] [place] [address] [place] [address] Mar, [facility] [place] [address] [place] [address] Feb, [facility] [address] [facility] [id number][place] [address] Feb, [facility] [place] [address] [facility] [address] Jan, [facility] [place] [address] [facility] [address] Jan, [facility] [address] [facility] [id number] [address] Jan, [facility] [address] [facility] [id number] [address] Jan, [facility] [address] [facility] [id number] [address] Jan, [facility] [place] [address] [place] [address] Jan, [facility] [place] [address] [facility] [address] Jan, [facility] [address] [facility] [id number] [address] Jan, [facility] [place] [address] [facility] [address] Dec, [facility] [address] [facility] [id number] [address] Dec, [facility] [address] [facility] [id number][place] [address] Nov, [facility] [address] [facility] [id number], [place] [address] Oct, [facility] [address] [facility] [id number], [place] [address] Oct, [facility] [address] [facility] [id number] [address] Oct, [facility] [address] [facility] [id number] [address] Oct, [facility] [address] [facility] [id number] [place] [address] August, [facility] [address] [id number] [address] August, [facility] [address] [id number], [place] [address] August, [facility] [address] [id number] [address] August, [facility] [address] [id number] [address] Jul, [facility] [address], [place] [address] Jul, IMMUNIZATIONS No Known Immunizations SOCIAL HISTORY Never Assessed REASON FOR VISIT controlled refill request PLAN OF CARE VITAL SIGNS MEDICATIONS Medication Instructions Dosage Frequency Start Date End Date Duration Status Tramadol HCl 50 mg Orally every 8 hrs 1-2 tablet as needed 8h Active RESULTS No Results PROCEDURES No Known [...]
--- OUTSIDE RECORDS SUMMARY | 2018-06-28 08:28 | XMS REPORT ---
Author Author KELVIN GRULLON Organization [facility] [address] Address [address] [place] [address] Care Team Providers Care Manipulative Therapy Specialist Name Role Phone KELVIN GRULLON Unavailable PROBLEMS Type Condition ICD9-CM Code JBC59-XO Code Onset Dates Condition Status SNOMED Code Problem Pubic bone pain M89.9 Active 97381542 Problem COPD (chronic obstructive pulmonary disease) J44.9 Active 36161903 Problem Psoriatic spondylitis L40.53 Active 451747555 Problem Psoriasis L40.9 Active 9137877 Problem Postmenopausal osteoporosis M81.0 Active 591322012 Problem Hypothyroidism, unspecified E03.9 Active 61118956 Problem Environmental allergies Z91.09 Active 832536644 Problem Degenerative disc disease, cervical M50.30 Active 22876180 Problem Neck pain M54.2 Active 61022990 Problem Increased frequency of urination R35.0 Active 387144085 Problem Major depressive disorder, recurrent, severe with psychotic symptoms F33.3 Active 73826378 Problem Suicide and self-inflicted injury by unspecified means E958.9 Active Problem Overactive bladder N32.81 Active 567025043 Problem Chronic fatigue R53.82 Active 88489055 Problem Hematuria R31.9 Active 68696138 ALLERGIES Substance Reaction Event Type Date Status Naproxen Unknown Drug Allergy Oct, Active Cymbalta " Out of Space" Drug Allergy Oct, Active ENCOUNTERS Encounter Location Date Diagnosis [facility] [address] [place] [address] Nov, [facility] [address] [place] [address] Oct, [facility] [address] [place] [address] Oct, [facility] [address] [place] [address] Oct, Fungal infection of toenail B35.1 ; Postmenopausal osteoporosis M81.0 and Psoriasis L40.[address] [address] Jul, [address] [address] Jul, Hypothyroidism, unspecified E03.[address] [address] Jul, Degenerative disc disease, cervical M50.[address] [address] Jul, Medicare annual wellness visit, initial Z00.00 ; Encounter for immunization Z23 ; Chronic obstructive pulmonary disease, unspecified J44.9 and Patient smokes within 5 minutes of waking Z72.[address] [address] 15 Jun, 2017 Neck pain M54.2 and Degenerative disc disease, cervical M50.[address] [address] Jun, Osteoporosis M81.0 ; Hypothyroidism, unspecified E03.9 ; Neck pain M54.2 and COPD (chronic obstructive pulmonary disease) J44.[address] [address] Mar, COPD ( chronic obstructive pulmonary disease) J44.9 and Hypothyroidism, unspecified E03.[address] [address] Feb, [address] [address] Jan, Pubic bone pain M89.9 ; Chronic fatigue R53.82 ; COPD (chronic obstructive pulmonary disease) J44.9 and Hypothyroidism, unspecified E03.[address] [address] Sep, [address] [address] August, COPD ( chronic obstructive pulmonary disease) J44.[address] [address] Apr, Environmental allergies Z91.[address] [address] Apr, Environmental allergies Z91.[address] [address] Apr, Environmental allergies Z91.09 and COPD (chronic obstructive pulmonary disease) J44.[address] [address] Mar, [address] [address] Feb, COPD ( chronic obstructive pulmonary disease) J44.[address] [address] Jan, Dysuria R30.[address] [address] 19 Dec, 2015 Other specified bacterial agents as the cause of diseases classified elsewhere B96.89 and Acute sinusitis, unspecified J01.[address] [address] 13 Dec, 2015 Psoriatic arthritis L40.50 and Hypothyroidism, unspecified E03.[address] [address] 15 Oct, 2015 Osteoporosis M81.[address] [address] 11 Oct, 2015 Psoriatic spondylitis L40.53 ; Osteoporosis M81.0 and Pubic bone pain M89.[address] [address] Jun, Pelvic pain R10.2 and Other constipation K59.[address] [address] May, [address] [address] May, [address] [address] May, [address] [address] Apr, 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 and Chronic fatigue R53.[address] [address] Mar, [address] [address] Mar, [address] [address] Mar, Overactive bladder N32.81 ; Increased frequency of urination R35.0 ; Hematuria R31.9 and Major depressive disorder, recurrent, severe with psychotic symptoms F33.[address] [address] Jan, Increased frequency of urination R35.0 ; Overactive bladder N32.81 ; Major depressive disorder, recurrent, severe with psychotic symptoms F33.3 and Chronic fatigue R53.[address] [address] Jan, [address] [address] Dec, Influenza vaccine administered V04.81 ; 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 ; Nocturnal hypoxia 327.24 ; Current tobacco use 305.1 and Pneumococcal vaccination administered at current visit V49.[address] [address] Oct, Nocturnal hypoxia 327.[address] [address] Oct, 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 ; 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 and Other malaise and fatigue 780.[address] [address] Oct, Other malaise and fatigue 780.[address] [address] Oct, Unspecified hypothyroidism 244.9 ; Other malaise and fatigue 780.79 ; Asthma, unspecified, unspecified status 493.90 ; Rash and nonspecific skin eruption 782.1 ; Family history of breast cancer in female V16.3 ; H/O breast implant V43.82 and Other screening mammogram V76.[address] [address] Sep, [address] [address] August, 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 ; Other malaise and fatigue 780.79 ; Exercise counseling V65.41 ; Unspecified hypothyroidism 244.9 and 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 [facility] [address] [address] Jul, [facility] [address] [address] Jul, [facility] [address] [place] [address] May, [facility] [id number] [place] [address] May, [facility] [id number] [place] [address] May, [facility] [address] [address] Apr, [facility] [address] [place] [address] Apr, [facility] [address] [place] [address] Apr, [facility] [address] [address] Apr, [facility] [address] [address] Feb, [facility] [address] [address] Feb, [facility] [address] [place] [address] Feb, [facility] [address] [place] [address] Jan, [facility] [address] [address] Jan, [facility] [address] [address] Oct, [facility] [address] [place] [address] Oct, [facility] [place] [facility] [address] [facility] [id number] [place] [address] Oct, [facility] [place] [facility] [address] [facility] [id number] [address] Jun, [facility] [address] [place] [address] Jun, [facility] [address] [place] [address] Apr, [facility] [place] [facility] [address] [facility] [id number] [address] Apr, [facility] [address] [place] [address] Mar, [facility] [place] [facility] [id number] [address] Mar, [facility] [place] [facility] [id number] [address] Mar, [facility] [address] [place] [address] Mar, [facility] [address] [place] [address] Feb, [facility] [place] [facility] [id number] [address] Feb, [facility] [address] [place] [address] Jan, [facility] [address] [place] [address] Jan, [facility] [place] [facility] [address] [facility] [id number] [address] Jan, [facility] [place] [facility] [id number] [address] Jan, [facility] [place] [facility] [id number] [address] Jan, [facility] [address] [place] [address] Jan, [facility] [address] [place] [address] Jan, [facility] [address] [address] Jan, [facility] [address] [place] [address] Dec, [facility] [address] [address] Dec, [facility] [id number] [place] [address] Nov, [facility] [address] [address] Oct, [facility] [id number] [place] [address] Oct, [facility] [address] [id number] [address] Oct, [facility] [address] [address] Oct, [facility] [address] [address] August, [facility] [address] [address] August, [facility] [address] [address] August, [facility] [address] [address] August, [facility] [address] [address] Jul, [facility] [address] [address] Jul, IMMUNIZATIONS No Known Immunizations SOCIAL HISTORY Never Assessed REASON FOR VISIT L great toenail causing some pain-amorrisonlpn PLAN OF CARE Activity Details Follow Up 3 Months Reason: VITAL SIGNS Height 65 in 2017-10-27 Weight 146.6 lbs 2017-10-27 Temperature 98.4 degrees Fahrenheit 2017-10-27 Heart Rate 89 bpm 2017-10-27 Respiratory Rate 16 2017-10-27 BMI 24.39 kg/m2 2017-10-27 Blood pressure systolic 128 mmHg 2017-10-27 Blood pressure diastolic 70 mmHg 2017-10-27 MEDICATIONS Medication Instructions Dosage Frequency Start Date End Date Duration Status Folic Acid by Oral route Jul, Not-Taking ProAir HFA 108 (90 Base) MCG/ACT Inhalation every 4 hrs 2 puffs as needed 4h Active Lamisil 250 MG Orally Once a day 1 tablet 24h Oct, Active Prozac Not-Taking Tramadol HCl 50 MG Orally every 6 hrs 1 tablet as needed 6h Active Albuterol Sulfate HFA 108 (90 Base) MCG/ACT Inhalation every 6 hrs 2 puffs as needed 6h Jun, Active Fosamax 10 MG Orally Once a day 1 tablet 24h Active Albuterol Sulfate (2.5 MG/3ML) 0.083% Inhalation 4 times a day 3 ml 6h 30 Active trazodone 50 mg 1 Tablet by Oral route 1 time per day at bedtime Oct Active PredniSONE 5 mg 1.5 Tablet by Oral route 1 time per day Jul, Active Claritin 10 MG Orally Once a day 1 tablet 24h Not-Taking Atorvastatin Calcium 20 mg Orally Once a day 1 tablet 24h Jul, 30 day(s) Active Benadryl 50 mg Orally once or twice a day as needed for allergies Active VESIcare 10 MG Orally Once a day 1 tablet 24h Mar, Not- Taking Budesonide 0.5 MG/2ML USE 1 AMPULE FOUR TIMES DAILY PER NEBULIZER 15 Active fluticasone 50 mcg/actuation 2 sprays by Nasal route 1 time per day Jan, Active Levothyroxine Sodium 75 MCG Orally Once a day 1 tablet 24h Active Meloxicam 15 MG TAKE ONE-HALF TABLET BY MOUTH TWICE DAILY 30 Active RESULTS Name Result Date Reference Range DEXA 2017-11-11 PROCEDURES Procedure Date Ordered Result Body Site [facility] VISIT ESTABLISHED PATIENT October 27, 2017 INSTRUCTIONS MEDICATIONS ADMINISTERED No Known Medications MEDICAL [...]
--- OUTSIDE RECORDS SUMMARY | 2018-06-28 08:28 | XMS REPORT ---
Author Author KELVIN GRULLON Organization [facility] [address] Address [address] [place] [address] Care Team Providers Care Field Cane Scale Clerk Name Role Phone KELVIN GRULLON Unavailable PROBLEMS Type Condition ICD9-CM Code XNW21-JF Code Onset Dates Condition Status SNOMED Code Problem Pubic bone pain M89.9 Active 95886549 Problem COPD (chronic obstructive pulmonary disease) J44.9 Active 72980995 Problem Psoriatic spondylitis L40.53 Active 813139031 Problem Psoriasis L40.9 Active 2539732 Problem Postmenopausal osteoporosis M81.0 Active 380782306 Problem Hypothyroidism, unspecified E03.9 Active 85808511 Problem Environmental allergies Z91.09 Active 584556847 Problem Degenerative disc disease, cervical M50.30 Active 11095486 Problem Neck pain M54.2 Active 80076150 Problem Increased frequency of urination R35.0 Active 435570161 Problem Major depressive disorder, recurrent, severe with psychotic symptoms F33.3 Active 02174639 Problem Suicide and self-inflicted injury by unspecified means E958.9 Active Problem Overactive bladder N32.81 Active 399106193 Problem Chronic fatigue R53.82 Active 58378865 Problem Hematuria R31.9 Active 91600221 ALLERGIES No Information ENCOUNTERS Encounter Location Date Diagnosis [facility] [address] [place] [address] Nov, [facility] [address] [place] [address] Oct, [facility] [address] [place] [address] Oct, [facility] [address] [place] [address] Oct, Fungal infection of toenail B35.1 ; Postmenopausal osteoporosis M81.0 and Psoriasis L40.9 [facility] [address] [place] [address] Jul, [facility] [address] [place] [address] Jul, Hypothyroidism, unspecified E03.9 [facility] [address] [address] [place] [address] Jul, Degenerative disc disease, cervical M50.30 [facility] [address] [place] [address] Jul, Medicare annual wellness visit, initial Z00.00 ; Encounter for immunization Z23 ; Chronic obstructive pulmonary disease, unspecified J44.9 and Patient smokes within 5 minutes of waking Z72.0 [facility] [address] [place] [address] 15 Jun, 2017 Neck pain M54.2 and Degenerative disc disease, cervical M50.30 [facility] [address] [place] [address] Jun, Osteoporosis M81.0 ; Hypothyroidism, unspecified E03.9 ; Neck pain M54.2 and COPD (chronic obstructive pulmonary disease) J44.9 [facility] [address] [place] [address] Mar, COPD ( chronic obstructive pulmonary disease) J44.9 and Hypothyroidism, unspecified E03.9 [facility] [address] [place] [address] Feb, [facility] [address] [address] Jan, Pubic bone pain M89.9 ; Chronic fatigue R53.82 ; COPD (chronic obstructive pulmonary disease) J44.9 and Hypothyroidism, unspecified E03.9 [facility] [address] [place] [address] Sep, [facility] [place] [address] [place] [address] August, COPD ( chronic obstructive pulmonary disease) J44.9 [facility] [address] [place] [address] Apr, Environmental allergies Z91.[address] [facility] [address] [address] Apr, Environmental allergies Z91.09 [facility] [address] [place] [address] Apr, Environmental allergies Z91.09 and COPD (chronic obstructive pulmonary disease) J44.9 [facility] [address] [place] [address] Mar, [facility] [address] [address] Feb, COPD ( chronic obstructive pulmonary disease) J44.9 [facility] [address] [place] [address] Jan, Dysuria R30.[address] [address] 19 Dec, 2015 Other specified bacterial agents as the cause of diseases classified elsewhere B96.89 and Acute sinusitis, unspecified J01.[address] [address] Dec, Psoriatic arthritis L40.50 and Hypothyroidism, unspecified E03.[address] [address] Oct, Osteoporosis M81.[address] [address] Oct, Psoriatic spondylitis L40.53 ; Osteoporosis M81.0 and Pubic bone pain M89.[address] [address] Jun, Pelvic pain R10.2 and Other constipation K59.[address] [address] May, [address] [address] May, [address] [address] May, [address] [address] Apr, 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 and Chronic fatigue R53.[address] [address] Mar, [address] [address] Mar, [address] [address] Mar, Overactive bladder N32.81 ; Increased frequency of urination R35.0 ; Hematuria R31.9 and Major depressive disorder, recurrent, severe with psychotic symptoms F33.[address] [address] Jan, Increased frequency of urination R35.0 ; Overactive bladder N32.81 ; Major depressive disorder, recurrent, severe with psychotic symptoms F33.3 and Chronic fatigue R53.[address] [address] Jan, [address] [address] Dec, Influenza vaccine administered V04.81 ; 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 ; Nocturnal hypoxia 327.24 ; Current tobacco use 305.1 and Pneumococcal vaccination administered at current visit V49.[address] [address] Oct, Nocturnal hypoxia 327.[address] [address] Oct, 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 ; 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 and Other malaise and fatigue 780.[address] [address] 16 Oct, 2014 Other malaise and fatigue [address] [address] 15 Oct, 2014 Unspecified hypothyroidism 244.9 ; Other malaise and fatigue 780.79 ; Asthma, unspecified, unspecified status 493.90 ; Rash and nonspecific skin eruption 782.1 ; Family history of breast cancer in female V16.3 ; H/O breast implant V43.82 and Other screening mammogram V76.12 [facility] [address] [place] [address] Sep, [facility] [address] [place] [address] August, 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 ; Other malaise and fatigue 780.79 ; Exercise counseling V65.41 ; Unspecified hypothyroidism 244.9 and 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 [facility] [id number] [place] [address] Jul, [facility] [id number] [place] [address] Jul, [facility] [address] [place] [address] May, [facility] [id number] [place] [address] May, [facility] [address] [place] [id number] [place] [address] May, [facility] [id number] [place] [address] Apr, [facility] [address] [place] [address] Apr, [facility] [address] [place] [address] Apr, [facility] [address] [place] [address], [place] [address] Apr, [facility] [id number] [place] [address] Feb, [facility] [address] [place] [id number] [place] [address] Feb, [facility] [address] [place] [address] Feb, [facility] [address] [place] [address] Jan, [facility] [id number] [place] [address] Jan, [facility] [place] [address], [place] [address] Oct, [facility] [address] [place] [address] Oct, [facility] [address], [place] [address] Oct, [facility] [address], [place] [address] Jun, [facility] [address] [place] [address] Jun, [facility] [address] [place] [address] Apr, [facility] [address], [place] [address] Apr, [facility] [address] [place] [address] Mar, [facility] [address], [place] [address] Mar, [facility] [address], [place] [address] Mar, [facility] [address] [place] [address] Mar, [facility] [address] [place] [address] Feb, [facility] [address], [place] [address] Feb, [facility] [address] [place] [address] Jan, [facility] [place] [address] [place] [address] Jan, [facility] [id number], [place] [address] Jan, [facility] [address] [place] [address] [place] [address] Jan, [facility] [address] [id number], [place] [address] Jan, [facility] [address] [facility] [place] [address] Jan, [facility] [place] [address] [facility] [place] [address] Jan, [facility] [address] [id number], [place] [address] Jan, [facility] [address] [facility] [place] [address] Dec, [facility] [address] [id number], [place] [address] Dec, [facility] [address] [facility] [id number], [place] [address] Nov, [facility] [address] [id number], [place] [address] Oct, [facility] [address] [id number], [place] [address] Oct, [facility] [address] [facility] [id number], [place] [address] Oct, [facility] [address] [facility] [id number], [place] [address] Oct, [facility] [address] [id number], [place] [address] August, [facility] [address] [id number], [place] [address] August, [facility] [address] [facility] [id number], [place] [address] August, [facility] [address] [facility] [id number], [place] [address] August, [facility] [address] [id number], [place] [address] Jul, [facility] [address] [facility] [id number] [address] Jul, IMMUNIZATIONS No Known Immunizations SOCIAL HISTORY Never Assessed REASON FOR VISIT med refill PLAN OF CARE VITAL SIGNS MEDICATIONS Medication Instructions Dosage Frequency Start Date End Date Duration Status Hydrocodone-Acetaminophen 5-325 MG Orally 2 times a day prn severe pain 1 tablet as needed Oct, Active RESULTS No Results PROCEDURES No Known [...]
--- OUTSIDE RECORDS SUMMARY | 2018-06-28 08:28 | XMS REPORT ---
Author Author KEVLIN GRULLON [facility] [address] Address [address] [place] [address] Care Team Providers Care Landcare Facilitator Name Role Phone KELVIN GRULLON Unavailable PROBLEMS Type Condition ICD9-CM Code OWN80-XW Code Onset Dates Condition Status SNOMED Code Problem Pubic bone pain M89.9 Active 70700616 Problem COPD (chronic obstructive pulmonary disease) J44.9 Active 70345329 Problem Psoriatic spondylitis L40.53 Active 932428953 Problem Psoriasis L40.9 Active 6983588 Problem Postmenopausal osteoporosis M81.0 Active 330497462 Problem Hypothyroidism, unspecified E03.9 Active 31089107 Problem Environmental allergies Z91.09 Active 638533763 Problem Degenerative disc disease, cervical M50.30 Active 43885920 Problem Neck pain M54.2 Active 84970356 Problem Increased frequency of urination R35.0 Active 202863926 Problem Major depressive disorder, recurrent, severe with psychotic symptoms F33.3 Active 54675461 Problem Suicide and self-inflicted injury by unspecified means E958.9 Active Problem Overactive bladder N32.81 Active 845813597 Problem Chronic fatigue R53.82 Active 94635748 Problem Hematuria R31.9 Active 59539838 ALLERGIES No Information ENCOUNTERS Encounter Location Date Diagnosis [facility] [address] [place] [address] Nov, [facility] [address] [place] [address] Oct, [facility] [address] [place] [address] Oct, [facility] [address] [place] [address] Oct, Fungal infection of toenail B35.1 ; Postmenopausal osteoporosis M81.0 and Psoriasis L40.9 [facility] [address] [place] [address] Jul, [facility] [address] [address] Jul, Hypothyroidism, unspecified E03.[address] [address] Jul, Degenerative disc disease, cervical M50.[address] [address] Jul, Medicare annual wellness visit, initial Z00.00 ; Encounter for immunization Z23 ; Chronic obstructive pulmonary disease, unspecified J44.9 and Patient smokes within 5 minutes of waking Z72.[address] [address] 15 Jun, 2017 Neck pain M54.2 and Degenerative disc disease, cervical M50.[address] [address] Jun, Osteoporosis M81.0 ; Hypothyroidism, unspecified E03.9 ; Neck pain M54.2 and COPD (chronic obstructive pulmonary disease) J44.[address] [address] Mar, COPD ( chronic obstructive pulmonary disease) J44.9 and Hypothyroidism, unspecified E03.[address] [address] Feb, [address] [address] Jan, Pubic bone pain M89.9 ; Chronic fatigue R53.82 ; COPD (chronic obstructive pulmonary disease) J44.9 and Hypothyroidism, unspecified E03.[address] [address] Sep, [address] [address] August, COPD ( chronic obstructive pulmonary disease) J44.[address] [address] Apr, Environmental allergies Z91.[address] [address] Apr, Environmental allergies Z91.[address] [address] Apr, Environmental allergies Z91.09 and COPD (chronic obstructive pulmonary disease) J44.[address] [address] 05 Mar, [address] [address] Feb, COPD ( chronic obstructive pulmonary disease) J44.[address] [address] Jan, Dysuria R30.[address] [address] 19 Dec, 2015 Other specified bacterial agents as the cause of diseases classified elsewhere B96.89 and Acute sinusitis, unspecified J01.[address] [address] 13 Dec, 2015 Psoriatic arthritis L40.50 and Hypothyroidism, unspecified E03.[address] [address] Oct, Osteoporosis M81.[address] [address] Oct, Psoriatic spondylitis L40.53 ; Osteoporosis M81.0 and Pubic bone pain M89.[address] [address] Jun, Pelvic pain R10.2 and Other constipation K59.[address] [address] May, [address] [address] May, [address] [address] May, [address] [address] Apr, 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 and Chronic fatigue R53.[address] [address] Mar, [address] [address] Mar, [address] [address] Mar, Overactive bladder N32.81 ; Increased frequency of urination R35.0 ; Hematuria R31.9 and Major depressive disorder, recurrent, severe with psychotic symptoms F33.[address] [address] Jan, Increased frequency of urination R35.0 ; Overactive bladder N32.81 ; Major depressive disorder, recurrent, severe with psychotic symptoms F33.3 and Chronic fatigue R53.[address] [address] Jan, [address] [address] Dec, Influenza vaccine administered V04.81 ; 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 ; Nocturnal hypoxia 327.24 ; Current tobacco use 305.1 and Pneumococcal vaccination administered at current visit V49.[address] [address] Oct, Nocturnal hypoxia 327.[address] [address] Oct, 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 ; 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 and Other malaise and fatigue 780.[address] [address] Oct, Other malaise and fatigue 780.[address] [address] Oct, Unspecified hypothyroidism 244.9 ; Other malaise and fatigue 780.79 ; Asthma, unspecified, unspecified status 493.90 ; Rash and nonspecific skin eruption 782.1 ; Family history of breast cancer in female V16.3 ; H/O breast implant V43.82 and Other screening mammogram V76.[address] [address] Sep, [address] [address] August, 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 ; Other malaise and fatigue 780.79 ; Exercise counseling V65.41 ; Unspecified hypothyroidism 244.9 and 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 [facility] [id number] [address] Jul, [facility] [address], [place] [address] Jul, [facility] [place] [address] [place] [address] May, [facility] [address], [place] [address] May, [facility] [address], [place] [address] May, [facility] [address], [place] [address] Apr, [facility] [place] [address] [place] [address] Apr, [facility] [address] [place] [address] Apr, [facility] [address], [place] [address] Apr, [facility] [address], [place] [address] Feb, [facility] [address], [place] [address] Feb, [facility] [address] [place] [address] Feb, [facility] [address] [place] [address] Jan, [facility] [id number], [place] [address] Jan, [facility] [id number], [place] [address] Oct, [facility] [place] [address] [place] [address] Oct, [facility] [id number], [place] [address] Oct, [facility] [address] [facility] [id number] [address] Jun, [facility] [place] [address] [place] [address] Jun, [facility] [address] [place] [address] Apr, [facility] [id number], [place] [address] Apr, [facility] [place] [address] [place] [address] Mar, [facility] [address] [facility] [id number], [place] [address] Mar, [facility] [id number], [place] [address] Mar, [facility] [place] [address] [place] [address] Mar, [facility] [address] [place] [address] Feb, [facility] [id number], [place] [address] Feb, [facility] [place] [address] [place] [address] Jan, [facility] [address] [place] [address] Jan, [facility] [id number], [place] [address] Jan, 2012 [facility] [address] [facility] [id number], [place] [address] Jan, [facility] [id number], [place] [address] Jan, 2012 [facility] [place] [address] [place] [address] Jan, 2012 [facility] [place] [address] [place] [address] Jan, 2012 [facility] [address], [place] [address] Jan, [facility] [address] [facility] [place] [address] Dec, [facility] [address], [place] [address] Dec, [facility] [id number], [place] [address] Nov, [facility] [address], [place] [address] Oct, [facility] [address], [place] [address] Oct, [facility] [address], [place] [address] Oct, [facility] [address], [place] [address] Oct, [facility] [address], [place] [address] August, [facility] [address], [place] [address] August, [facility] [address], [place] [address] August, [facility] [id number], [place] [address] August, [facility] [id number], [place] [address] Jul, [facility] [id number], [place] [address] Jul, IMMUNIZATIONS No Known Immunizations SOCIAL HISTORY [...]
--- OUTSIDE RECORDS SUMMARY | 2018-06-28 08:29 | XMS REPORT ---
Author Author KELVIN GRULLON Organization [facility] Address [address] [place] [address] Care Team Providers Care Tray Drier Operator Name Role Phone KELVIN GRULLON Unavailable PROBLEMS Type Condition ICD9-CM Code KDI35-YQ Code Onset Dates Condition Status SNOMED Code Problem Pubic bone pain M89.9 Active 42832504 Problem COPD (chronic obstructive pulmonary disease) J44.9 Active 86527315 Problem Psoriatic spondylitis L40.53 Active 094191117 Problem Psoriasis L40.9 Active 1055782 Problem Postmenopausal osteoporosis M81.0 Active 259214790 Problem Hypothyroidism, unspecified E03.9 Active 33097102 Problem Environmental allergies Z91.09 Active 049834467 Problem Degenerative disc disease, cervical M50.30 Active 34112778 Problem Neck pain M54.2 Active 23453861 Problem Increased frequency of urination R35.0 Active 581503465 Problem Major depressive disorder, recurrent, severe with psychotic symptoms F33.3 Active 13365269 Problem Suicide and self-inflicted injury by unspecified means E958.9 Active Problem Overactive bladder N32.81 Active 504592142 Problem Chronic fatigue R53.82 Active 65876535 Problem Hematuria R31.9 Active 14737902 ALLERGIES No Information ENCOUNTERS Encounter Location Date Diagnosis [facility] [place] [address] [place] [address] Oct, [facility] [place] [address] [place] [address] Oct, [facility] [place] [address] [place] [address] Oct, Fungal infection of toenail B35.1 ; Postmenopausal osteoporosis M81.0 and Psoriasis L40.9 [facility] [place] [address] [place] [address] Jul, [facility] [place] [address] [place] [address] Jul, Hypothyroidism, unspecified E03.9 [facility] [place] [address] [place] [address] Jul, Degenerative disc disease, cervical M50.30 [facility] [place] [address] [place] [address] Jul, Medicare annual wellness visit, initial Z00.00 ; Encounter for immunization Z23 ; Chronic obstructive pulmonary disease, unspecified J44.9 and Patient smokes within 5 minutes of waking Z72.0 [facility] [place] [address] [place] [address] 15 Jun, 2017 Neck pain M54.2 and Degenerative disc disease, cervical M50.30 [facility] [place] [address] [place] [address] Jun, Osteoporosis M81.0 ; Hypothyroidism, unspecified E03.9 ; Neck pain M54.2 and COPD (chronic obstructive pulmonary disease) J44.9 [facility] [address] [address] Mar, COPD (chronic obstructive pulmonary disease) J44.9 and Hypothyroidism, unspecified E03.9 [facility] [address] [address] Feb, [facility] [place] [address] [place] [address] Jan, Pubic bone pain M89.9 ; Chronic fatigue R53.82 ; COPD (chronic obstructive pulmonary disease) J44.9 and Hypothyroidism, unspecified E03.9 [facility] [address] [address] Sep, [facility] [address] [address] August, COPD (chronic obstructive pulmonary disease) J44.9 [facility] [address] [address] Apr, Environmental allergies Z91.09 [facility] [address] [address] Apr, Environmental allergies Z91.09 [facility] [address] [address] Apr, Environmental allergies Z91.09 and COPD (chronic obstructive pulmonary disease) J44.9 [facility] [address] [address] Mar, [facility] [address] [address] 09 Feb, 2016 COPD (chronic obstructive pulmonary disease) J44.[address] [address] 06 Jan, 2016 Dysuria R30.[address] [address] 19 Dec, 2015 Other specified bacterial agents as the cause of diseases classified elsewhere B96.89 and Acute sinusitis, unspecified J01.[address] [address] 13 Dec, 2015 Psoriatic arthritis L40.50 and Hypothyroidism, unspecified E03.[address] [address] 15 Oct, 2015 Osteoporosis M81.[address] [address] 11 Oct, 2015 Psoriatic spondylitis L40.53 ; Osteoporosis M81.0 and Pubic bone pain M89.[address] [address] Jun, Pelvic pain R10.2 and Other constipation K59.09 [facility] [address] [address] May, [facility] [address] [address] May, [facility] [address] [address] May, [address] [address] Apr, 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 and Chronic fatigue R53.[address] [address] Mar, [facility] [address] [address] Mar, [facility] [address] [address] Mar, Overactive bladder N32.81 ; Increased frequency of urination R35.0 ; Hematuria R31.9 and Major depressive disorder, recurrent, severe with psychotic symptoms F33.[address] [address] Jan, Increased frequency of urination R35.0 ; Overactive bladder N32.81 ; Major depressive disorder, recurrent, severe with psychotic symptoms F33.3 and Chronic fatigue R53.[address] [address] Jan, [address] [address] Dec, Influenza vaccine administered V04.81 ; 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 ; Nocturnal hypoxia 327.24 ; Current tobacco use 305.1 and Pneumococcal vaccination administered at current visit V49.[address] [address] Oct, Nocturnal hypoxia 327.[address] [address] Oct, 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 ; 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 and Other malaise and fatigue 780.[address] [address] 16 Oct, 2014 Other malaise and fatigue 780.[address] [address] Oct, Unspecified hypothyroidism 244.9 ; Other malaise and fatigue 780.79 ; Asthma, unspecified, unspecified status 493.90 ; Rash and nonspecific skin eruption 782.1 ; Family history of breast cancer in female V16.3 ; H/O breast implant V43.82 and Other screening mammogram V76.[address] [address] Sep, [address] [address] August, 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 ; Other malaise and fatigue 780.79 ; Exercise counseling V65.41 ; Unspecified hypothyroidism 244.9 and 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 [facility] [id number], [place] [address] Jul, [facility] [id number] [place] [address] [address] Jul, [address] [address] May, [facility] [id number] [place] [address] [place] [address] May, 2014 [facility] [address] [facility] [id number] [address] May, 2014 [facility] [id number], [place] [address] Apr, [facility] [place] [address] [place] [address] Apr, [facility] [place] [address] [place] [address] Apr, [facility] [id number], [place] [address] Apr, [facility] [address], [place] [address] Feb, [facility] [address], [place] [address] Feb, [facility] [place] [address] [place] [address] Feb, [facility] [address] [place] [address] Jan, [facility] [address], [place] [address] Jan, [facility] [address], [place] [address] Oct, [facility] [place] [address] [place] [address] Oct, [facility] [address], [place] [address] Oct, [facility] [id number], [place] [address] Jun, [facility] [place] [address] [place] [address] Jun, [facility] [place] [address] [place] [address] Apr, [facility] [address], [place] [address] Apr, [facility] [place] [address] [place] [address] 16 Mar, 2013 [facility] [address] [facility] [id number], [place] [address] 16 Mar, 2013 [facility] [address] [facility] [id number], [place] [address] Mar, [facility] [place] [address] [facility] [address] Mar, [facility] [place] [address] [facility] [address] Feb, [facility] [id number] [place] [address] Feb, [facility] [place] [address] [facility] [place] [address] Jan, [facility] [place] [address] [place] [address] Jan, [facility] [id number] [place] [address] Jan, [facility] [id number] [place] [address] 2543 Jan, [facility] [id number] [place] [address] 2546 Jan, [facility] [place] [address] [facility] [place] [address] Jan, [facility] [place] [address] [place] [address] Jan, [facility] [id number], [place] [address] Jan, [facility] [place] [address] [place] [address] Dec, [facility] [id number], [place] [address] Dec, [facility] [id number], [place] [address] Nov, [facility] [id number] [place] [address] Oct, [facility] [address] [facility] [id number], [place] [address] Oct, [facility] [id number], [place] [address] Oct, [facility] [id number], [place] [address] Oct, [facility] [address], [place] [address] August, [facility] [id number], [place] [address] August, [facility] [id number], [place] [address] August, [facility] [id number], [place] [address] August, [facility] [id number], [place] [address] Jul, [facility] [id number], [place] [address] Jul, IMMUNIZATIONS No Known Immunizations SOCIAL HISTORY Never Assessed REASON FOR VISIT Lab (walk-in), [facility] PLAN OF CARE Activity Details Follow Up prn Reason: VITAL SIGNS MEDICATIONS Unknown Medications RESULTS No Results PROCEDURES Procedure Date Ordered Result Body Site LAB NOT BILLED BY [facility] August 04, 2017 MONICA, TAMANNA* August 04, 2017 INSTRUCTIONS MEDICATIONS ADMINISTERED No Known Medications [...]
--- OUTSIDE RECORDS SUMMARY | 2018-06-28 08:29 | XMS REPORT ---
Author Author KELVIN GRULLON [facility] Address [address] [place] [address] Care Team Providers Care Modern Greek Studies Professor Name Role Phone KELVIN GRULLON Unavailable PROBLEMS Type Condition ICD9-CM Code UHF43-RJ Code Onset Dates Condition Status SNOMED Code Problem Pubic bone pain M89.9 Active 81412849 Problem COPD (chronic obstructive pulmonary disease) J44.9 Active 39327805 Problem Psoriatic spondylitis L40.53 Active 890232374 Problem Psoriasis L40.9 Active 1718964 Problem Postmenopausal osteoporosis M81.0 Active 226024212 Problem Hypothyroidism, unspecified E03.9 Active 65118372 Problem Environmental allergies Z91.09 Active 350600533 Problem Degenerative disc disease, cervical M50.30 Active 05659826 Problem Neck pain M54.2 Active 40472956 Problem Increased frequency of urination R35.0 Active 342624445 Problem Major depressive disorder, recurrent, severe with psychotic symptoms F33.3 Active 12022682 Problem Suicide and self-inflicted injury by unspecified means E958.9 Active Problem Overactive bladder N32.81 Active 452015996 Problem Chronic fatigue R53.82 Active 08272729 Problem Hematuria R31.9 Active 77315083 ALLERGIES Substance Reaction Event Type Date Status Naproxen Unknown Drug Allergy Jul, Active Cymbalta " Out of Space" Drug Allergy Jul, Active ENCOUNTERS Encounter Location Date Diagnosis [facility] [address] [place] [address] Oct, [facility] [address] [place] [address] Oct, [facility] [address] [place] [address] Oct, Fungal infection of toenail B35.1 ; Postmenopausal osteoporosis M81.0 and Psoriasis L40.9 [facility] [address] [place] [address] Jul, [facility] [address] [place] [address] Jul, Hypothyroidism, unspecified E03.9 [facility] [place] [address] [place] [address] Jul, Degenerative disc disease, cervical M50.30 [facility] [address] [place] [address] 04 Jul, 2017 Medicare annual wellness visit, initial Z00.00 ; Encounter for immunization Z23 ; Chronic obstructive pulmonary disease, unspecified J44.9 and Patient smokes within 5 minutes of waking Z72.0 [facility] [place] [address] [place] [address] 15 Jun, 2017 Neck pain M54.2 and Degenerative disc disease, cervical M50.30 [facility] [address] [address] 09 Jun, 2017 Osteoporosis M81.0 ; Hypothyroidism, unspecified E03.9 ; Neck pain M54.2 and COPD (chronic obstructive pulmonary disease) J44.9 [facility] [address] [address] Mar, COPD (chronic obstructive pulmonary disease) J44.9 and Hypothyroidism, unspecified E03.9 [facility] [address] [address] Feb, [facility] [address] [address] Jan, Pubic bone pain M89.9 ; Chronic fatigue R53.82 ; COPD (chronic obstructive pulmonary disease) J44.9 and Hypothyroidism, unspecified E03.9 [facility] [address] [address] Sep, [facility] [address] [address] August, COPD (chronic obstructive pulmonary disease) J44.9 [facility] [address] [address] Apr, Environmental allergies Z91.09 [facility] [address] [address] Apr, Environmental allergies Z91.09 [facility] [address] [address] Apr, Environmental allergies Z91.09 and COPD (chronic obstructive pulmonary disease) J44.[address] [address] 05 Mar, 2016 [facility] [address] [address] 09 Feb, 2016 COPD (chronic obstructive pulmonary disease) J44.[address] [address] 06 Jan, 2016 Dysuria R30.[address] [address] 19 Dec, 2015 Other specified bacterial agents as the cause of diseases classified elsewhere B96.89 and Acute sinusitis, unspecified J01.[address] [address] 13 Dec, 2015 Psoriatic arthritis L40.50 and Hypothyroidism, unspecified E03.[address] [address] 15 Oct, 2015 Osteoporosis M81.[address] [address] 11 Oct, 2015 Psoriatic spondylitis L40.53 ; Osteoporosis M81.0 and Pubic bone pain M89.[address] [address] Jun, Pelvic pain R10.2 and Other constipation K59.[address] [address] May, [address] [address] May, [address] [address] May, [address] [address] Apr, 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 and Chronic fatigue R53.[address] [address] Mar, [address] [address] Mar, [address] [address] Mar, Overactive bladder N32.81 ; Increased frequency of urination R35.0 ; Hematuria R31.9 and Major depressive disorder, recurrent, severe with psychotic symptoms F33.[address] [address] 28 Jan, 2015 Increased frequency of urination R35.0 ; Overactive bladder N32.81 ; Major depressive disorder, recurrent, severe with psychotic symptoms F33.3 and Chronic fatigue R53.[address] [address] Jan, [address] [address] Dec, Influenza vaccine administered V04.81 ; 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 ; Nocturnal hypoxia 327.24 ; Current tobacco use 305.1 and Pneumococcal vaccination administered at current visit V49.[address] [address] Oct, Nocturnal hypoxia 327.[address] [address] 17 Oct, 2014 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 ; 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 and Other malaise and fatigue 780.[address] [address] 16 Oct, 2014 Other malaise and fatigue 780.[address] [address] 15 Oct, 2014 Unspecified hypothyroidism 244.9 ; Other malaise and fatigue 780.79 ; Asthma, unspecified, unspecified status 493.90 ; Rash and nonspecific skin eruption 782.1 ; Family history of breast cancer in female V16.3 ; H/O breast implant V43.82 and Other screening mammogram V76.[address] [address] Sep, [address] [address] August, 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 ; Other malaise and fatigue 780.79 ; Exercise counseling V65.41 ; Unspecified hypothyroidism 244.9 and 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 [facility] [address] [facility] [id number] [address] Jul, [facility] [address] [facility] [id number] [place] [address] Jul, [address] [address] May, 2014 [facility] [address] [facility] [id number] [place] [address] May, 2014 [facility] [id number] [address] May, 2014 [facility] [id number] [address] Apr, [facility] [address] [place] [address] Apr, [facility] [address] [facility] [place] [address] Apr, [facility] [address] [place] [address] Apr, [facility] [address] [address] Feb, [facility] [address] [address] Feb, [facility] [place] [address] [place] [address] Feb, [facility] [address] [place] [address] Jan, [facility] [id number] [address] Jan, [facility] [id number] [address] Oct, [facility] [place] [address] [place] [address] Oct, [facility] [id number] [address] Oct, [facility] [address] [address] Jun, [facility] [address] [place] [address] Jun, [facility] [address] [place] [address] Apr, [facility] [address] [facility] [id number] [place] [address] Apr, [facility] [address] [facility] [place] [address] Mar, [facility] [address] [facility] [id number] [place] [address] 16 Mar, 2013 [facility] [address] [place] [address] Mar, [facility] [address] [facility] [place] [address] Mar, [facility] [address] [facility] [place] [address] Feb, [facility] [address] [place] [address] Feb, [facility] [address] [facility] [place] [address] Jan, [facility] [address] [facility] [place] [address] Jan, [facility] [address] [address] Jan, [facility] [address] [place] [address] Jan, [facility] [id number] [address] Jan, [facility] [address] [place] [address] Jan, [facility] [address] [place] [address] Jan, [facility] [id number] [address] Jan, [facility] [address] [place] [address] Dec, [facility] [id number] [address] Dec, [facility] [address] [address] Nov, [facility] [id number] Oct, [facility] [address] Oct, [facility] [id number] [address] Oct, [facility] [address] [address] Oct, [facility] [address] [address] August, [facility] [address] [address] August, [facility] [address] [address] August, [facility] [address] [address] August, [facility] [id number] [address] Jul, [facility] [id number] [address] Jul, IMMUNIZATIONS Vaccine Route Administration Date Status PCV 13 IM Intramuscular July 30, 2017 Administered SOCIAL HISTORY Never Assessed REASON FOR VISIT Medicare AWV - Initial Visit Samuel Rocha RN, talk about MRI of neck PLAN OF CARE Activity Details Follow Up 4 Weeks Reason:lipid VITAL SIGNS Height 65 in 2017-07-30 Weight 145 lbs 2017-07-30 Temperature 98.4 degrees Fahrenheit 2017-07-30 Heart Rate 88 bpm 2017-07-30 Respiratory Rate 18 2017-07-30 BMI 24.13 kg/m2 2017-07-30 Blood pressure systolic 134 mmHg 2017-07-30 Blood pressure diastolic 68 mmHg 2017-07-30 MEDICATIONS Medication Instructions Dosage Frequency Start Date End Date Duration Status Albuterol Sulfate (2.5 MG/3ML) 0.083% Inhalation 4 times a day 3 ml 6h 30 Active Prozac Not-Taking Fosamax 10 MG Orally Once a day 1 tablet 24h Active Levothyroxine Sodium 75 MCG Orally Once a day 1 tablet 24h Active Folic Acid by Oral route Jul, Not-Taking Meloxicam 15 MG TAKE ONE-HALF TABLET BY MOUTH TWICE DAILY 30 Active ProAir HFA 108 (90 Base) MCG/ACT Inhalation every 4 hrs 2 puffs as needed 4h Active VESIcare 10 MG Orally Once a day 1 tablet 24h Mar, Not- Taking PredniSONE 5 mg 1.5 Tablet by Oral route 1 time per day Jul, Active Albuterol Sulfate HFA 108 (90 Base) MCG/ACT Inhalation every 6 hrs 2 puffs as needed 6h Jun, Active trazodone 50 mg 1 Tablet by Oral route 1 time per day at bedtime Oct Active Budesonide 0.5 MG/2ML USE 1 AMPULE FOUR TIMES DAILY PER NEBULIZER 15 Active Benadryl 50 mg Orally once or twice a day as needed for allergies Active fluticasone 50 mcg/actuation 2 sprays by Nasal route 1 time per day Jan, Active Claritin 10 MG Orally Once a day 1 tablet 24h Not-Taking Tramadol HCl 50 MG Orally every 6 hrs 1 tablet as needed 6h Active RESULTS No Results PROCEDURES Procedure Date Ordered Result Body Site COUNT INCLUDES THE [facility] VISIT IPPE/AWV July 30, 2017 ANNUAL VONDA DE PAZT; BHAVANA PPS INIT July 30, 2017 SINGLE IMMUNIZATION ADMIN July 30, 2017 PCV 13 July 30, 2017 PT TOBACCO SCREEN RCVD TLK July 30, 2017 FALL RISK ASSESSMENT DOCD July 30, 2017 COUNT INCLUDES THE [facility] VISIT ESTABLISHED PATIENT July 30, 2017 INSTRUCTIONS MEDICATIONS ADMINISTERED No Known Medications [...]
--- OUTSIDE RECORDS SUMMARY | 2018-06-28 08:29 | XMS REPORT ---
Author Author KELVIN GRULLON Organization [facility] Address [address] [place] [address] Care Team Providers Care Cell Lead Name Role Phone KELVIN GRULLON Unavailable PROBLEMS Type Condition ICD9-CM Code GGG45-LX Code Onset Dates Condition Status SNOMED Code Problem Pubic bone pain M89.9 Active 91570354 Problem COPD (chronic obstructive pulmonary disease) J44.9 Active 43992719 Problem Psoriatic spondylitis L40.53 Active 857157175 Problem Psoriasis L40.9 Active 9804247 Problem Postmenopausal osteoporosis M81.0 Active 595727411 Problem Hypothyroidism, unspecified E03.9 Active 61210681 Problem Environmental allergies Z91.09 Active 008688524 Problem Degenerative disc disease, cervical M50.30 Active 55137680 Problem Neck pain M54.2 Active 51541362 Problem Increased frequency of urination R35.0 Active 208493346 Problem Major depressive disorder, recurrent, severe with psychotic symptoms F33.3 Active 42769778 Problem Suicide and self-inflicted injury by unspecified means E958.9 Active Problem Overactive bladder N32.81 Active 826076641 Problem Chronic fatigue R53.82 Active 29678959 Problem Hematuria R31.9 Active 35813175 ALLERGIES No Information ENCOUNTERS Encounter Location Date Diagnosis [facility] [address] [place] [address] Oct, [facility] [address] [place] [address] Oct, [facility] [address] [place] [address] Oct, Fungal infection of toenail B35.1 ; Postmenopausal osteoporosis M81.0 and Psoriasis L40.9 [facility] [address] [place] [address] Jul, [facility] [address] [place] [address] Jul, Hypothyroidism, unspecified E03.9 [facility] [place] [address] [place] [address] Jul, Degenerative disc disease, cervical M50.30 [facility] [place] [address] [place] [address] Jul, Medicare annual wellness visit, initial Z00.00 ; Encounter for immunization Z23 ; Chronic obstructive pulmonary disease, unspecified J44.9 and Patient smokes within 5 minutes of waking Z72.0 [facility] [place] [address] [place] [address] 15 Jun, 2017 Neck pain M54.2 and Degenerative disc disease, cervical M50.30 [facility] [place] [address] [place] [address] Jun, Osteoporosis M81.0 ; Hypothyroidism, unspecified E03.9 ; Neck pain M54.2 and COPD (chronic obstructive pulmonary disease) J44.9 [facility] [address] [address] Mar, COPD (chronic obstructive pulmonary disease) J44.9 and Hypothyroidism, unspecified E03.9 [facility] [address] [address] Feb, [facility] [address] [place] [address] Jan, Pubic bone pain M89.9 ; Chronic fatigue R53.82 ; COPD (chronic obstructive pulmonary disease) J44.9 and Hypothyroidism, unspecified E03.9 [facility] [address] [address] Sep, [facility] [address] [address] August, COPD (chronic obstructive pulmonary disease) J44.9 [facility] [address] [address] Apr, Environmental allergies Z91.09 [facility] [address] [address] Apr, Environmental allergies Z91.09 [facility] [address] [address] Apr, Environmental allergies Z91.09 and COPD (chronic obstructive pulmonary disease) J44.9 [facility] [address] [address] Mar, [facility] [address] [address] 09 Feb, 2016 COPD (chronic obstructive pulmonary disease) J44.[address] [address] 06 Jan, 2016 Dysuria R30.[address] [address] 19 Dec, 2015 Other specified bacterial agents as the cause of diseases classified elsewhere B96.89 and Acute sinusitis, unspecified J01.[address] [address] 13 Dec, 2015 Psoriatic arthritis L40.50 and Hypothyroidism, unspecified E03.[address] [address] 15 Oct, 2015 Osteoporosis M81.[address] [address] 11 Oct, 2015 Psoriatic spondylitis L40.53 ; Osteoporosis M81.0 and Pubic bone pain M89.[address] [address] Jun, Pelvic pain R10.2 and Other constipation K59.09 [facility] [address] [address] May, [facility] [address] [address] May, [facility] [address] [address] May, [address] [address] Apr, 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 and Chronic fatigue R53.[address] [address] Mar, [facility] [address] [address] Mar, [facility] [address] [address] Mar, Overactive bladder N32.81 ; Increased frequency of urination R35.0 ; Hematuria R31.9 and Major depressive disorder, recurrent, severe with psychotic symptoms F33.[address] [address] Jan, Increased frequency of urination R35.0 ; Overactive bladder N32.81 ; Major depressive disorder, recurrent, severe with psychotic symptoms F33.3 and Chronic fatigue R53.[address] [address] Jan, [address] [address] Dec, Influenza vaccine administered V04.81 ; 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 ; Nocturnal hypoxia 327.24 ; Current tobacco use 305.1 and Pneumococcal vaccination administered at current visit V49.[address] [address] Oct, Nocturnal hypoxia 327.[address] [address] Oct, 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 ; 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 and Other malaise and fatigue 780.[address] [address] 16 Oct, 2014 Other malaise and fatigue 780.[address] [address] Oct, Unspecified hypothyroidism 244.9 ; Other malaise and fatigue 780.79 ; Asthma, unspecified, unspecified status 493.90 ; Rash and nonspecific skin eruption 782.1 ; Family history of breast cancer in female V16.3 ; H/O breast implant V43.82 and Other screening mammogram V76.[address] [address] Sep, [address] [address] August, 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 ; Other malaise and fatigue 780.79 ; Exercise counseling V65.41 ; Unspecified hypothyroidism 244.9 and 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 [facility] [id number], [place] [address] Jul, [facility] [id number] [place] [address] Jul, [address] [address] May, [facility] [id number] [place] [address] [place] [address] May, 2014 [facility] [address] [facility] [id number], [place] [address] May, 2014 [facility] [id number], [place] [address] Apr, [facility] [address] [place] [address] Apr, [facility] [address] [place] [address] Apr, [facility] [id number], [place] [address] Apr, [facility] [address], [place] [address] Feb, [facility] [address], [place] [address] Feb, [facility] [address] [place] [address] Feb, [facility] [address] [place] [address] Jan, [facility] [address], [place] [address] Jan, [facility] [address], [place] [address] Oct, [facility] [address] [place] [address] Oct, [facility] [address], [place] [address] Oct, [facility] [id number], [place] [address] Jun, [facility] [address] [place] [address] Jun, [facility] [address] [place] [address] Apr, [facility] [address], [place] [address] Apr, [facility] [address] [place] [address] 16 Mar, 2013 [facility] [address] [facility] [id number], [place] [address] 16 Mar, 2013 [facility] [address] [facility] [id number], [place] [address] Mar, [facility] [place] [address] [place] [address] Mar, [facility] [place] [address] [place] [address] Feb, [facility] [id number] [place] [address] Feb, [facility] [place] [address] [place] [address] Jan, [facility] [address] [place] [address] Jan, [facility] [id number] [place] [address] Jan, [facility] [id number] [place] [address] Jan, [facility] [id number] [place] [address] 25[address] Jan, [facility] [place] [address] [place] [address] Jan, [facility] [address] [place] [address] Jan, [facility] [id number], [place] [address] Jan, [facility] [address] [place] [address] Dec, [facility] [id number], [place] [address] Dec, [facility] [id number], [place] [address] Nov, [facility] [address] [place] [address] Oct, [facility] [id number], [place] [address] Oct, [facility] [id number], [place] [address] Oct, [facility] [id number], [place] [address] Oct, [facility] [address], [place] [address] August, [facility] [id number], [place] [address] August, [facility] [address], [place] [address] August, [facility] [address], [place] [address] August, [facility] [id number], [place] [address] Jul, [facility] [id number], [place] [address] Jul, IMMUNIZATIONS No Known Immunizations SOCIAL HISTORY Never Assessed REASON FOR VISIT referral for pain doctor PLAN OF CARE VITAL SIGNS MEDICATIONS Unknown [...]
--- OUTSIDE RECORDS SUMMARY | 2018-06-28 08:29 | XMS REPORT ---
Author Author KELVIN GRULLON Organization [facility] Address [address] [place] [address] Care Team Providers Care Tanker Serviceman Name Role Phone KELVIN GRULLON Unavailable PROBLEMS Type Condition ICD9-CM Code CWY31-FR Code Onset Dates Condition Status SNOMED Code Problem Pubic bone pain M89.9 Active 63478808 Problem COPD (chronic obstructive pulmonary disease) J44.9 Active 39970712 Problem Psoriatic spondylitis L40.53 Active 852442506 Problem Psoriasis L40.9 Active 4162718 Problem Postmenopausal osteoporosis M81.0 Active 109700773 Problem Hypothyroidism, unspecified E03.9 Active 80033318 Problem Environmental allergies Z91.09 Active 224039109 Problem Degenerative disc disease, cervical M50.30 Active 36666090 Problem Neck pain M54.2 Active 73034678 Problem Increased frequency of urination R35.0 Active 609509073 Problem Major depressive disorder, recurrent, severe with psychotic symptoms F33.3 Active 93177348 Problem Suicide and self-inflicted injury by unspecified means E958.9 Active Problem Overactive bladder N32.81 Active 374835187 Problem Chronic fatigue R53.82 Active 89016059 Problem Hematuria R31.9 Active 32140971 ALLERGIES No Information ENCOUNTERS Encounter Location Date Diagnosis [facility] [place] [address] [place] [address] Oct, [facility] [place] [address] [place] [address] Oct, [facility] [place] [address] [place] [address] Oct, Fungal infection of toenail B35.1 ; Postmenopausal osteoporosis M81.0 and Psoriasis L40.9 [facility] [place] [address] [place] [address] Jul, [facility] [place] [address] [place] [address] Jul, Hypothyroidism, unspecified E03.9 [facility] [place] [address] [place] [address] Jul, Degenerative disc disease, cervical M50.30 [facility] [place] [address] [place] [address] Jul, Medicare annual wellness visit, initial Z00.00 ; Encounter for immunization Z23 ; Chronic obstructive pulmonary disease, unspecified J44.9 and Patient smokes within 5 minutes of waking Z72.0 [facility] [place] [address] [place] [address] 15 Jun, 2017 Neck pain M54.2 and Degenerative disc disease, cervical M50.30 [facility] [place] [address] [place] [address] Jun, Osteoporosis M81.0 ; Hypothyroidism, unspecified E03.9 ; Neck pain M54.2 and COPD (chronic obstructive pulmonary disease) J44.9 [facility] [address] [address] Mar, COPD (chronic obstructive pulmonary disease) J44.9 and Hypothyroidism, unspecified E03.9 [facility] [address] [address] Feb, [facility] [place] [address] [place] [address] Jan, Pubic bone pain M89.9 ; Chronic fatigue R53.82 ; COPD (chronic obstructive pulmonary disease) J44.9 and Hypothyroidism, unspecified E03.9 [facility] [address] [address] Sep, [facility] [address] [address] August, COPD (chronic obstructive pulmonary disease) J44.9 [facility] [address] [address] Apr, Environmental allergies Z91.09 [facility] [address] [address] Apr, Environmental allergies Z91.09 [facility] [address] [address] Apr, Environmental allergies Z91.09 and COPD (chronic obstructive pulmonary disease) J44.9 [facility] [address] [address] Mar, [facility] [address] [address] 09 Feb, 2016 COPD (chronic obstructive pulmonary disease) J44.[address] [address] 06 Jan, 2016 Dysuria R30.[address] [address] 19 Dec, 2015 Other specified bacterial agents as the cause of diseases classified elsewhere B96.89 and Acute sinusitis, unspecified J01.[address] [address] 13 Dec, 2015 Psoriatic arthritis L40.50 and Hypothyroidism, unspecified E03.[address] [address] 15 Oct, 2015 Osteoporosis M81.[address] [address] 11 Oct, 2015 Psoriatic spondylitis L40.53 ; Osteoporosis M81.0 and Pubic bone pain M89.[address] [address] Jun, Pelvic pain R10.2 and Other constipation K59.09 [facility] [address] [address] May, [facility] [address] [address] May, [facility] [address] [address] May, [address] [address] Apr, 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 and Chronic fatigue R53.[address] [address] Mar, [facility] [address] [address] Mar, [facility] [address] [address] Mar, Overactive bladder N32.81 ; Increased frequency of urination R35.0 ; Hematuria R31.9 and Major depressive disorder, recurrent, severe with psychotic symptoms F33.[address] [address] Jan, Increased frequency of urination R35.0 ; Overactive bladder N32.81 ; Major depressive disorder, recurrent, severe with psychotic symptoms F33.3 and Chronic fatigue R53.[address] [address] Jan, [address] [address] Dec, Influenza vaccine administered V04.81 ; 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 ; Nocturnal hypoxia 327.24 ; Current tobacco use 305.1 and Pneumococcal vaccination administered at current visit V49.[address] [address] Oct, Nocturnal hypoxia 327.[address] [address] Oct, 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 ; 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 and Other malaise and fatigue 780.[address] [address] 16 Oct, 2014 Other malaise and fatigue 780.[address] [address] Oct, Unspecified hypothyroidism 244.9 ; Other malaise and fatigue 780.79 ; Asthma, unspecified, unspecified status 493.90 ; Rash and nonspecific skin eruption 782.1 ; Family history of breast cancer in female V16.3 ; H/O breast implant V43.82 and Other screening mammogram V76.[address] [address] Sep, [address] [address] August, 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 ; Other malaise and fatigue 780.79 ; Exercise counseling V65.41 ; Unspecified hypothyroidism 244.9 and 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 [facility] [id number] [address] Jul, [facility] [id number] [place] [address] [address] Jul, [address] [address] May, [facility] [id number] [place] [address] [place] [address] May, 2014 [facility] [address] [facility] [id number] [address] May, 2014 [facility] [id number], [place] [address] Apr, [facility] [place] [address] [place] [address] Apr, [facility] [place] [address] [place] [address] Apr, [facility] [id number], [place] [address] Apr, [facility] [address], [place] [address] Feb, [facility] [address], [place] [address] Feb, [facility] [place] [address] [place] [address] Feb, [facility] [place] [address] [place] [address] Jan, [facility] [address], [place] [address] Jan, [facility] [address], [place] [address] Oct, [facility] [place] [address] [place] [address] Oct, [facility] [address], [place] [address] Oct, [facility] [id number], [place] [address] Jun, [facility] [place] [address] [place] [address] Jun, [facility] [place] [address] [place] [address] Apr, [facility] [address], [place] [address] Apr, [facility] [place] [address] [place] [address] 16 Mar, 2013 [facility] [address] [facility] [id number], [place] [address] 16 Mar, 2013 [facility] [address] [facility] [id number], [place] [address] Mar, [facility] [place] [address] [place] [address] Mar, [facility] [place] [address] [place] [address] Feb, [facility] [id number] [place] [address] Feb, [facility] [place] [address] [place] [address] Jan, [facility] [place] [address] [place] [address] Jan, [facility] [id number] [place] [address] Jan, [facility] [id number] [place] [address] Jan, [facility] [id number] [place] [address] Jan, [facility] [place] [address] [place] [address] Jan, [facility] [place] [address] [place] [address] Jan, [facility] [id number], [place] [address] Jan, [facility] [place] [address] [place] [address] Dec, [facility] [id number], [place] [address] Dec, [facility] [id number], [place] [address] Nov, [facility] [address] [place] [address] Oct, [facility] [address] [facility] [id number], [place] [address] Oct, [facility] [id number], [place] [address] Oct, [facility] [id number], [place] [address] Oct, [facility] [address] [address] August, [facility] [id number] [address] August, [facility] [address], [place] [address] August, [facility] [address], [place] [address] August, [facility] [id number], [place] [address] Jul, [facility] [id number], [place] [address] Jul, IMMUNIZATIONS No Known Immunizations SOCIAL HISTORY Never Assessed REASON FOR VISIT elevated cholesterol PLAN OF CARE VITAL SIGNS MEDICATIONS Medication Instructions Dosage Frequency Start Date End Date Duration Status Atorvastatin Calcium 20 mg Orally Once a day 1 tablet 24h Jul, 30 day(s) Active RESULTS No Results PROCEDURES No Known [...]
--- OUTSIDE RECORDS SUMMARY | 2018-06-28 08:30 | XMS REPORT ---
Author Author KEVLIN GRULLON Organization [facility] Address [address] [place] [address] Care Team Providers Care Bagman/Woman Name Role Phone KELVIN GRULLON Unavailable PROBLEMS Type Condition ICD9-CM Code GPS44-WK Code Onset Dates Condition Status SNOMED Code Problem Pubic bone pain M89.9 Active 87396950 Problem COPD (chronic obstructive pulmonary disease) J44.9 Active 90596541 Problem Psoriatic spondylitis L40.53 Active 145195052 Problem Psoriasis L40.9 Active 2598985 Problem Postmenopausal osteoporosis M81.0 Active 984577733 Problem Hypothyroidism, unspecified E03.9 Active 32654767 Problem Environmental allergies Z91.09 Active 539188513 Problem Degenerative disc disease, cervical M50.30 Active 80493166 Problem Neck pain M54.2 Active 87183033 Problem Increased frequency of urination R35.0 Active 880981510 Problem Major depressive disorder, recurrent, severe with psychotic symptoms F33.3 Active 08522518 Problem Suicide and self-inflicted injury by unspecified means E958.9 Active Problem Overactive bladder N32.81 Active 689160783 Problem Chronic fatigue R53.82 Active 81512234 Problem Hematuria R31.9 Active 81269690 ALLERGIES No Information ENCOUNTERS Encounter Location Date Diagnosis [facility] [place] [address] [place] [address] Oct, [facility] [place] [address] [place] [address] Oct, [facility] [place] [address] [place] [address] Oct, Fungal infection of toenail B35.1 ; Postmenopausal osteoporosis M81.0 and Psoriasis L40.9 [facility] [place] [address] [place] [address] Jul, [facility] [place] [address] [place] [address] Jul, Hypothyroidism, unspecified E03.9 [facility] [place] [address] [place] [address] Jul, Degenerative disc disease, cervical M50.30 [facility] [place] [address] [place] [address] Jul, Medicare annual wellness visit, initial Z00.00 ; Encounter for immunization Z23 ; Chronic obstructive pulmonary disease, unspecified J44.9 and Patient smokes within 5 minutes of waking Z72.0 [facility] [place] [address] [place] [address] 15 Jun, 2017 Neck pain M54.2 and Degenerative disc disease, cervical M50.30 [facility] [place] [address] [place] [address] Jun, Osteoporosis M81.0 ; Hypothyroidism, unspecified E03.9 ; Neck pain M54.2 and COPD (chronic obstructive pulmonary disease) J44.9 [facility] [address] [address] Mar, COPD (chronic obstructive pulmonary disease) J44.9 and Hypothyroidism, unspecified E03.9 [facility] [address] [address] Feb, [facility] [place] [address] [place] [address] Jan, Pubic bone pain M89.9 ; Chronic fatigue R53.82 ; COPD (chronic obstructive pulmonary disease) J44.9 and Hypothyroidism, unspecified E03.9 [facility] [address] [address] Sep, [facility] [address] [address] August, COPD (chronic obstructive pulmonary disease) J44.9 [facility] [address] [address] Apr, Environmental allergies Z91.09 [facility] [address] [address] Apr, Environmental allergies Z91.09 [facility] [address] [address] Apr, Environmental allergies Z91.09 and COPD (chronic obstructive pulmonary disease) J44.9 [facility] [address] [address] Mar, [facility] [address] [address] Feb, COPD (chronic obstructive pulmonary disease) J44.[address] [address] 06 Jan, 2016 Dysuria R30.[address] [address] 19 Dec, 2015 Other specified bacterial agents as the cause of diseases classified elsewhere B96.89 and Acute sinusitis, unspecified J01.[address] [address] 13 Dec, 2015 Psoriatic arthritis L40.50 and Hypothyroidism, unspecified E03.[address] [address] 15 Oct, 2015 Osteoporosis M81.[address] [address] 11 Oct, 2015 Psoriatic spondylitis L40.53 ; Osteoporosis M81.0 and Pubic bone pain M89.[address] [address] Jun, Pelvic pain R10.2 and Other constipation K59.[address] [address] May, [address] [address] May, [address] [address] May, [address] [address] Apr, 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 and Chronic fatigue R53.[address] [address] Mar, [facility] [address] [address] Mar, [facility] [address] [address] Mar, Overactive bladder N32.81 ; Increased frequency of urination R35.0 ; Hematuria R31.9 and Major depressive disorder, recurrent, severe with psychotic symptoms F33.[address] [address] Jan, Increased frequency of urination R35.0 ; Overactive bladder N32.81 ; Major depressive disorder, recurrent, severe with psychotic symptoms F33.3 and Chronic fatigue R53.[address] [address] Jan, [address] [address] Dec, Influenza vaccine administered V04.81 ; 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 ; Nocturnal hypoxia 327.24 ; Current tobacco use 305.1 and Pneumococcal vaccination administered at current visit V49.[address] [address] Oct, Nocturnal hypoxia 327.[address] [address] Oct, 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 ; 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 and Other malaise and fatigue 780.[address] [address] 16 Oct, 2014 Other malaise and fatigue 780.[address] [address] Oct, Unspecified hypothyroidism 244.9 ; Other malaise and fatigue 780.79 ; Asthma, unspecified, unspecified status 493.90 ; Rash and nonspecific skin eruption 782.1 ; Family history of breast cancer in female V16.3 ; H/O breast implant V43.82 and Other screening mammogram V76.[address] [address] Sep, [address] [address] August, 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 ; Other malaise and fatigue 780.79 ; Exercise counseling V65.41 ; Unspecified hypothyroidism 244.9 and 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 [facility] [id number], [place] [address] Jul, [facility] [id number] [place] [address] Jul, [address] [address] May, [facility] [id number] [place] [address] May, 2014 [facility] [id number], [place] [address] May, [facility] [id number], [place] [address] Apr, [facility] [place] [address] [place] [address] Apr, [facility] [place] [address] [place] [address] Apr, [facility] [id number], [place] [address] Apr, [facility] [address], [place] [address] Feb, [facility] [address], [place] [address] Feb, [facility] [place] [address] [place] [address] Feb, [facility] [place] [address] [place] [address] Jan, [facility] [address], [place] [address] Jan, [facility] [id number], [place] [address] Oct, [facility] [place] [address] [place] [address] Oct, [facility] [address], [place] [address] Oct, [facility] [id number], [place] [address] Jun, [facility] [place] [address] [place] [address] Jun, [facility] [place] [address] [place] [address] Apr, [facility] [address], [place] [address] Apr, [facility] [place] [address] [place] [address] 16 Mar, 2013 [facility] [address] [facility] [id number] [address] 16 Mar, 2013 [facility] [address] [facility] [id number], [place] [address] Mar, [facility] [place] [address] [place] [address] Mar, [facility] [place] [address] [place] [address] Feb, [facility] [id number], [place] [address] Feb, [facility] [place] [address] [place] [address] Jan, [facility] [place] [address] [place] [address] Jan, [facility] [id number] [place] [address] Jan, [facility] [id number] [place] [address] 2546 Jan, [facility] [id number] [place] [address] 2546 Jan, [facility] [place] [address] [place] [address] Jan, [facility] [place] [address] [place] [address] Jan, [facility] [id number], [place] [address] Jan, [facility] [place] [address] [place] [address] Dec, [facility] [id number], [place] [address] Dec, [facility] [id number], [place] [address] Nov, [facility] [address], [place] [address] Oct, [facility] [address] [facility] [id number], [place] [address] Oct, [facility] [id number], [place] [address] Oct, [facility] [id number], [place] [address] Oct, [facility] [address], [place] [address] August, [facility] [id number], [place] [address] August, [facility] [address], [place] [address] August, [facility] [address], [place] [address] August, [facility] [id number], [place] [address] Jul, [facility] [id number], [place] [address] Jul, IMMUNIZATIONS No Known Immunizations SOCIAL HISTORY Never Assessed REASON FOR VISIT MRI PLAN OF CARE VITAL SIGNS MEDICATIONS Unknown Medications RESULTS Name Result Date Reference Range MRI : Cervical w/o Contrast 2017-07-17 PROCEDURES No Known procedures INSTRUCTIONS MEDICATIONS ADMINISTERED [...]
--- OUTSIDE RECORDS SUMMARY | 2018-06-28 08:30 | XMS REPORT ---
Author Author KELVIN GRULLON [facility] [place] Address [address] [place] [address] Care Team Providers Care Instrument Assembler Name Role Phone KELVIN GRULLON Unavailable PROBLEMS Type Condition ICD9-CM Code WTH70-BU Code Onset Dates Condition Status SNOMED Code Problem Hematuria R31.9 Active 93547586 Problem Osteoporosis M81.0 Active 10480656 Problem Psoriatic spondylitis L40.53 Active 201301327 Problem Degenerative disc disease, cervical M50.30 Active 66616283 Problem Neck pain M54.2 Active 73909238 Problem COPD (chronic obstructive pulmonary disease) J44.9 Active 40851781 Problem Pubic bone pain M89.9 Active 04713868 Problem Hypothyroidism, unspecified E03.9 Active 11161564 Problem Environmental allergies Z91.09 Active 952023047 Problem Chronic fatigue R53.82 Active 39972812 Problem Increased frequency of urination R35.0 Active 739404177 Problem Major depressive disorder, recurrent, severe with psychotic symptoms F33.3 Active 50788978 Problem Suicide and self-inflicted injury by unspecified means E958.9 Active Problem Overactive bladder N32.81 Active 830439810 ALLERGIES Substance Reaction Event Type Date Status Naproxen Unknown Drug Allergy Mar, Active Cymbalta " Out of Space" Drug Allergy Mar, Active ENCOUNTERS Encounter Location Date Diagnosis [facility] [place] [address] [facility] [address] [id number] [place] [id number] Jul, [facility] [place] [address] [id number] [place] [id number] Jul, Hypothyroidism, unspecified E03.9 [facility] [place] [address] [facility] [address] [id number] [place] [id number] Jul, Degenerative disc disease, cervical M50.30 [facility] [place] [address] [facility] [address] [id number] [place] [id number] Jul, Medicare annual wellness visit, initial Z00.00 ; Encounter for immunization Z23 ; Chronic obstructive pulmonary disease, unspecified J44.9 and Patient smokes within 5 minutes of waking Z72.0 [facility] [place] [address] [facility] [address] [id number] [place] [id number] 15 Jun, 2017 Neck pain M54.2 and Degenerative disc disease, cervical M50.30 [facility] [place] [address] [facility] [address] [id number] [place] [id number] Jun, Osteoporosis M81.0 ; Hypothyroidism, unspecified E03.9 ; Neck pain M54.2 and COPD (chronic obstructive pulmonary disease) J44.9 [facility] [place] [address] [place] [address] [address] [id number] [place] [id number] Mar, COPD (chronic obstructive pulmonary disease) J44.9 and Hypothyroidism, unspecified E03.9 [facility] [place] [address] [place] [address] [address] [id number] [place] [id number] Feb, [facility] [place] [address] [place] [address] [address] [id number] [place] [id number] Jan, Pubic bone pain M89.9 ; Chronic fatigue R53.82 ; COPD (chronic obstructive pulmonary disease) J44.9 and Hypothyroidism, unspecified E03.9 [facility] [place] [address] [place] [address] [address] [id number] [place] [id number] Sep, [facility] [place] [address] [facility] [address] [id number] [place] [id number] August, COPD (chronic obstructive pulmonary disease) J44.9 [facility] [place] [address] [facility] [address] [id number] [place] [id number] Apr, Environmental allergies Z91.09 [facility] [place] [address] [facility] [address] [id number] [place] [address] Apr, Environmental allergies Z91.09 [facility] [place] [address] [facility] [address] [id number] [place] [address] Apr, Environmental allergies Z91.09 and COPD (chronic obstructive pulmonary disease) J44.9 [facility] [place] [address] [facility] [address] [id number] [place] [id number] Mar, [facility] [place] [address] [place] [address] [address] [id number] [place] [id number] Feb, COPD (chronic obstructive pulmonary disease) J44.9 [facility] [place] [address] [place] [address] [address] [id number] [place] [id number] Jan, Dysuria R30.0 [facility] [place] [address] [place] [address] [address] [id number] [place] [id number] Dec, Other specified bacterial agents as the cause of diseases classified elsewhere B96.89 and Acute sinusitis, unspecified J01.90 [facility] [place] [address] [place] [address] [address] [id number] [place] [id number] 13 Dec, 2015 Psoriatic arthritis L40.50 and Hypothyroidism, unspecified E03.9 [facility] [place] [address] [place] [address] [address] [id number] [place] [id number] 15 Oct, 2015 Osteoporosis M81.0 [facility] [place] [address] [place] [address] [address] [id number] [place] [id number] Oct, Psoriatic spondylitis L40.53 ; Osteoporosis M81.0 and Pubic bone pain M89.9 [facility] [place] [address] [place] [address] [address] [id number] [place] [address] Jun, Pelvic pain R10.2 and Other constipation K59.09 [facility] [place] [address] [place] [address] [address] [id number] [place] [id number] May, [facility] [place] [address] [place] [address] [address] [id number] [place] [id number] May, [facility] [place] [address] [place] [address] [address] [id number] [place] [id number] May, [facility] [place] [address] [place] [address] [address] [id number] [place] [id number] Apr, 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 and Chronic fatigue R53.82 [facility] [place] [address] [facility] [address] [id number] [place] [id number] Mar, [facility] [place] [address] [place] [address] [address] [id number] [place] [id number] Mar, [facility] [place] [address] [place] [address] [id number] [place] [id number] Mar, Overactive bladder N32.81 ; Increased frequency of urination R35.0 ; Hematuria R31.9 and Major depressive disorder, recurrent, severe with psychotic symptoms F33.3 [facility] [place] [address] [place] [address] [id number] [place] [id number] Jan, Increased frequency of urination R35.0 ; Overactive bladder N32.81 ; Major depressive disorder, recurrent, severe with psychotic symptoms F33.3 and Chronic fatigue R53.[address] [id number] [place] [id number] Jan, 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 ; 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 and Other malaise and fatigue 780.[address] [id number] [place] [address] Oct, Other malaise and fatigue 780.[address] [id number] [place] [address] Oct, Unspecified hypothyroidism 244.9 ; Other malaise and fatigue 780.79 ; Asthma, unspecified, unspecified status 493.90 ; Rash and nonspecific skin eruption 782.1 ; Family history of breast cancer in female V16.3 ; H/O breast implant V43.82 and Other screening mammogram V76.12 [facility] [place] [id number] [place] [id number] Sep, [address] [id number] [place] [address] August, 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 ; Other malaise and fatigue 780.79 ; Exercise counseling V65.41 ; Unspecified hypothyroidism 244.9 and 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 [facility] [address] [id number] [address] Jul, [facility] [address] [id number] [address] Jul, [facility] [place] [address] [facility] [address] [id number] [place] [id number] May, [facility] [address] [id number], [place] [address] May, [facility] [address], [place] [address] May, [facility] [address] [id number], [place] [address] Apr, [facility] [place] [address] [facility] [address] [id number] [place] [id number] Apr, [facility] [place] [address] [facility] [address] [id number] [place] [id number] Apr, [facility] [address] [id number], [place] [address] Apr, [facility] [address] [id number], [place] [address] Feb, [facility] [address] [id number], [place] [address] Feb, [facility] [place] [address] [facility] [address] [id number] [place] [id number] Feb, [facility] [place] [address] [facility] [address] [id number] [place] [id number] Jan, [facility] [address] [id number], [place] [address] Jan, [facility] [address] [id number] [place] [address] Oct, [facility] [place] [address] [facility] [address] [id number] [place] [id number] Oct, [facility] [address] [facility] [id number] [facility] [address] Oct, [facility] [place] [facility] [address] [facility] [id number] [facility] [place] [address] Jun, [facility] [place] [address] [facility] [address] [id number] [place] [id number] Jun, [facility] [place] [address] [facility] [address] [id number] [place] [id number] Apr, [facility] [address] [facility] [id number] [facility] [place] [address] Apr, [facility] [place] [address] [facility] [address] [id number] [place] [id number] Mar, [facility] [address] [facility] [id number] [place] [address] Mar, [facility] [place] [facility] [address] [facility] [id number] [facility] [place] [address] Mar, [facility] [place] [address] [facility] [address] [id number] [place] [id number] Mar, [facility] [place] [address] [facility] [address] [id number] [place] [id number] Feb, [facility] [place] [facility] [address] [facility] [id number] [facility] [place] [address] Feb, [facility] [place] [address] [facility] [address] [id number] [place] [id number] Jan, [facility] [place] [address] [facility] [address] [id number] [place] [id number] Jan, [facility] [place] [facility] [address] [facility] [id number] [place] [address] Jan, [facility] [place] [facility] [address] [facility] [id number] [place] [address] Jan, [facility] [address] [id number] [place] [address] Jan, [facility] [place] [address] [id number] [place] [id number] Jan, [facility] [place] [address] [id number] [place] [id number] Jan, [facility] [place] [facility] [address] [id number] [place] [address] Jan, [facility] [place] [address] [id number] [place] [id number] Dec, [facility] [place] [facility] [address] [id number] [place] [address] Dec, [facility] [place] [facility] [address] [id number] [place] [address] Nov, [facility] [place] [facility] [address] [id number] [place] [address] Oct, [facility] [place] [facility] [address] [id number] [place] [address] Oct, [facility] [place] [facility] [address] [id number] [place] Oct, [facility] [place] [facility] [address] [facility] [id number] [place] [address] Oct, [facility] [place] [facility] [address] [id number], [place] [address] August, [facility] [place] [facility] [address] [id number] [place] [address] August, [facility] [place] [facility] [address] [id number] [place] [address] August, [facility] [place] [facility] [address] [id number] [place] [address] August, [facility] [place] [facility] [address] [id number], [place] [address] Jul, [facility] [address] [facility] [id number] [place] [address] Jul, IMMUNIZATIONS No Known Immunizations SOCIAL HISTORY Never Assessed REASON FOR VISIT Lab f/u-Corwin RN, head and chest congestion x's 1 week PLAN OF CARE Activity Details Follow Up 3 Months Reason: VITAL SIGNS Height 65 in 2017-03-28 Weight 140.4 lbs 2017-03-28 Temperature 98.6 degrees Fahrenheit 2017-03-28 Heart Rate 88 bpm 2017-03-28 Respiratory Rate 16 2017-03-28 BMI 23.36 kg/m2 2017-03-28 Blood pressure systolic 120 mmHg 2017-03-28 Blood pressure diastolic 72 mmHg 2017-03-28 MEDICATIONS Medication Instructions Dosage Frequency Start Date End Date Duration Status Levothyroxine Sodium 75 MCG Orally Once a day 1 tablet 24h Active fluticasone 50 mcg/actuation 2 sprays by Nasal route 1 time per day Jan, Active Doxycycline Hyclate 100 mg Orally every 12 hrs 1 capsule 12h Mar, Mar, 07 days Active PredniSONE 5 mg 1.5 Tablet by Oral route 1 time per day Jul, Active ProAir HFA 108 (90 Base) MCG/ACT Inhalation every 4 hrs 2 puffs as needed 4h Active Claritin 10 MG Orally Once a day 1 tablet 24h Active Prozac Active Tramadol HCl 50 MG Orally every 6 hrs 1 tablet as needed 6h Active Benadryl 50 mg Orally once or twice a day as needed for allergies Active Albuterol Sulfate (2.5 MG/3ML) 0.083% Inhalation 4 times a day 3 ml 6h 30 Active Budesonide 0.5 MG/2ML USE 1 AMPULE FOUR TIMES DAILY PER NEBULIZER 30 Active trazodone 50 mg 1 Tablet by Oral route 1 time per day at bedtime Oct Active VESIcare 10 MG Orally Once a day 1 tablet 24h Mar, Active Meloxicam 15 MG TAKE ONE-HALF TABLET BY MOUTH TWICE DAILY 30 Active Folic Acid by Oral route Jul, Active Fosamax 10 MG Orally Once a day 1 tablet 24h Active RESULTS No Results PROCEDURES Procedure Date Ordered Result Body Site [facility] VISIT ESTABLISHED PATIENT Mar 28, 2017 INSTRUCTIONS MEDICATIONS ADMINISTERED No Known Medications [...]
--- OUTSIDE RECORDS SUMMARY | 2018-06-28 08:30 | XMS REPORT ---
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 Active 620495672 Problem Psoriasis L40.9 Active 9901531 Problem Postmenopausal osteoporosis M81.0 Active 846337970 Problem Hypothyroidism, unspecified E03.9 Active 97483057 Problem Environmental allergies Z91.09 Active 676805648 Problem Degenerative disc disease, cervical M50.30 Active 12324361 Problem Neck pain M54.2 Active 87676293 Problem Increased frequency of urination R35.0 Active 184833791 Problem Major depressive disorder, recurrent, severe with psychotic symptoms F33.3 Active 38346800 Problem Suicide and self-inflicted injury by unspecified means E958.9 Active Problem Overactive bladder N32.81 Active 975143665 Problem Chronic fatigue R53.82 Active 32015297 Problem Hematuria R31.9 Active 60031217 ALLERGIES Substance Reaction Event Type Date Status Naproxen Unknown Drug Allergy Jun, Active Cymbalta " Out of Space" Drug Allergy Jun, Active ENCOUNTERS Encounter Location Date Diagnosis [facility] [address] [place] [address] Oct, [facility] [address] [place] [address] Oct, [facility] [address] [place] [address] Oct, Fungal infection of toenail B35.1 ; Postmenopausal osteoporosis M81.0 and Psoriasis L40.9 [facility] [address] [place] [address] Jul, [facility] [address] [place] [address] Jul, Hypothyroidism, unspecified E03.9 [facility] [address] [address] Jul, Degenerative disc disease, cervical M50.30 [facility] [address] [address] Jul, Medicare annual wellness visit, initial Z00.00 ; Encounter for immunization Z23 ; Chronic obstructive pulmonary disease, unspecified J44.9 and Patient smokes within 5 minutes of waking Z72.0 [facility] [address] [place] [address] 15 Jun, 2017 Neck pain M54.2 and Degenerative disc disease, cervical M50.30 [facility] [address] [address] Jun, Osteoporosis M81.0 ; Hypothyroidism, unspecified E03.9 ; Neck pain M54.2 and COPD (chronic obstructive pulmonary disease) J44.[address] [address] Mar, COPD (chronic obstructive pulmonary disease) J44.9 and Hypothyroidism, unspecified E03.[address] [address] Feb, [facility] [address] [address] Jan, Pubic bone pain M89.9 ; Chronic fatigue R53.82 ; COPD (chronic obstructive pulmonary disease) J44.9 and Hypothyroidism, unspecified E03.9 [facility] [address] [address] Sep, [facility] [address] August, COPD (chronic obstructive pulmonary disease) J44.[address] [address] Apr, Environmental allergies Z91.09 [facility] [address] [address] Apr, Environmental allergies Z91.[address] [address] Apr, Environmental allergies Z91.09 and COPD (chronic obstructive pulmonary disease) J44.[address] [address] 05 Mar, [address] [address] 09 Feb, 2016 COPD (chronic obstructive pulmonary disease) J44.[address] [address] 06 Jan, 2016 Dysuria R30.[address] [address] 19 Dec, 2015 Other specified bacterial agents as the cause of diseases classified elsewhere B96.89 and Acute sinusitis, unspecified J01.[address] [address] 13 Dec, 2015 Psoriatic arthritis L40.50 and Hypothyroidism, unspecified E03.[address] [address] 15 Oct, 2015 Osteoporosis M81.[address] [address] 11 Oct, 2015 Psoriatic spondylitis L40.53 ; Osteoporosis M81.0 and Pubic bone pain M89.[address] [address] Jun, Pelvic pain R10.2 and Other constipation K59.[address] [address] May, [address] [address] May, [address] [address] May, [address] [address] Apr, 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 and Chronic fatigue R53.[address] [address] Mar, [address] [address] Mar, [address] [address] Mar, Overactive bladder N32.81 ; Increased frequency of urination R35.0 ; Hematuria R31.9 and Major depressive disorder, recurrent, severe with psychotic symptoms F33.[address] [address] 28 Jan, 2015 Increased frequency of urination R35.0 ; Overactive bladder N32.81 ; Major depressive disorder, recurrent, severe with psychotic symptoms F33.3 and Chronic fatigue R53.[address] [address] Jan, [address] [address] 29 Dec, 2014 Influenza vaccine administered V04.81 ; 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 ; Nocturnal hypoxia 327.24 ; Current tobacco use 305.1 and Pneumococcal vaccination administered at current visit V49.[address] [address] 24 Oct, 2014 Nocturnal hypoxia 327.[address] [address] 17 Oct, 2014 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 ; 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 and Other malaise and fatigue 780.[address] [address] 16 Oct, 2014 Other malaise and fatigue 780.[address] [address] 15 Oct, 2014 Unspecified hypothyroidism 244.9 ; Other malaise and fatigue 780.79 ; Asthma, unspecified, unspecified status 493.90 ; Rash and nonspecific skin eruption 782.1 ; Family history of breast cancer in female V16.3 ; H/O breast implant V43.82 and Other screening mammogram V76.[address] [address] Sep, [address] [address] August, 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 ; Other malaise and fatigue 780.79 ; Exercise counseling V65.41 ; Unspecified hypothyroidism 244.9 and 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 [address] [facility] [id number] [address] Jul, [facility] [address] [facility] [id number] [address] Jul, [address] [address] May, 2014 [facility] [address] [facility] [id number], [place] [address] May, 2014 [facility] [address] [facility] [id number] [address] May, 2014 [facility] [address] [id number] [address] Apr, [facility] [address] [facility] [place] [address] Apr, [facility] [address] [facility] [place] [address] Apr, [facility] [address] [id number], [place] [address] Apr, [facility] [address] [id number], [place] [address] Feb, [facility] [address], [place] [address] Feb, [facility] [address] [place] [address] Feb, [facility] [address] [place] [address] Jan, [facility] [address] [id number] [address] Jan, [facility] [address] [id number], [place] [address] Oct, [facility] [address] [place] [address] Oct, [facility] [address] [id number], [place] [address] Oct, [facility] [address] [id number], [place] [address] Jun, [facility] [address] [place] [address] Jun, [facility] [address] [place] [address] Apr, [facility] [address] [facility] [id number] [address] Apr, [facility] [address] [facility] [address] 16 Mar, 2013 [facility] [address] [facility] [id number][place] [address] 16 Mar, 2013 [facility] [address], [place] [address] Mar, [facility] [address] [facility] [place] [address] Mar, [facility] [address] [facility] [place] [place] [address] Feb, [facility] [address], [place] [address] Feb, [facility] [address] [facility] [place] [address] Jan, [facility] [address] [facility] [place] [address] Jan, [facility] [address], [place] [address] Jan, [facility] [address] [place] [address] Jan, [facility] [address] [id number], [place] [address] Jan, [facility] [address] [place] [address] Jan, [facility] [address] [place] [address] Jan, [facility] [address] [id number], [place] [address] Jan, [facility] [address] [facility] [place] [address] Dec, [facility] [address] [id number], [place] [address] Dec, [facility] [address], [place] [address] Nov, [facility] [address] [id number], [place] [address] Oct, [facility] [id number], [place] [address] Oct, [facility] [address], [place] [address] Oct, [facility] [address], [place] [address] Oct, [facility] [address], [place] [address] August, [facility] [address], [place] [address] August, [facility] [address] [place] [address] August, [facility] [address], [place] [address] August, [facility] [address], [place] [address] Jul, [facility] [address] [id number], [place] [address] Jul, IMMUNIZATIONS No Known Immunizations SOCIAL HISTORY Never Assessed REASON FOR VISIT Pain (acute) back Samuel Rocha RN, Needs thyroid levels checked, Needs proair inhaler but insurance does not cover. PLAN OF CARE Activity Details Follow Up 3 Months Reason: VITAL SIGNS Height 65 in 2017-07-04 Weight 144.6 lbs 2017-07-04 Temperature 97.6 degrees Fahrenheit 2017-07-04 Heart Rate 84 bpm 2017-07-04 Respiratory Rate 18 2017-07-04 BMI 24.06 kg/m2 2017-07-04 Blood pressure systolic 112 mmHg 2017-07-04 Blood pressure diastolic 62 mmHg 2017-07-04 MEDICATIONS Medication Instructions Dosage Frequency Start Date End Date Duration Status Folic Acid by Oral route Jul, Not-Taking Albuterol Sulfate (2.5 MG/3ML) 0.083% Inhalation 4 times a day 3 ml 6h 30 Active trazodone 50 mg 1 Tablet by Oral route 1 time per day at bedtime Oct Active PredniSONE 5 mg 1.5 Tablet by Oral route 1 time per day Jul, Active Meloxicam 15 MG TAKE ONE-HALF TABLET BY MOUTH TWICE DAILY 30 Active Fosamax 10 MG Orally Once a day 1 tablet 24h Active Levothyroxine Sodium 75 MCG Orally Once a day 1 tablet 24h Active fluticasone 50 mcg/actuation 2 sprays by Nasal route 1 time per day Jan, Active Benadryl 50 mg Orally once or twice a day as needed for allergies Active Claritin 10 MG Orally Once a day 1 tablet 24h Active Prozac Not-Taking Tramadol HCl 50 MG Orally every 6 hrs 1 tablet as needed 6h Active ProAir HFA 108 (90 Base) MCG/ACT Inhalation every 4 hrs 2 puffs as needed 4h Active Budesonide 0.5 MG/2ML USE 1 AMPULE FOUR TIMES DAILY PER NEBULIZER 15 Active VESIcare 10 MG Orally Once a day 1 tablet 24h Mar, Not- Taking Albuterol Sulfate HFA 108 (90 Base) MCG/ACT Inhalation every 6 hrs 2 puffs as needed 6h Jun, Active RESULTS No Results PROCEDURES Procedure Date Ordered Result Body Site ROUTINE VENIPUNCTURE 2017-07-04 N/A [facility] VISIT ESTABLISHED PATIENT July 04, 2017 LAB NOT BILLED BY [facility] July 04, 2017 INSTRUCTIONS MEDICATIONS ADMINISTERED No Known [...]
--- OUTSIDE RECORDS SUMMARY | 2018-06-28 08:31 | XMS REPORT ---
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 Problem Increased frequency of urination R35.0 Active Problem Pain in joint, ankle and foot 719.47 Active Problem Overactive bladder N32.81 Active Problem Unspecified site of ankle sprain and strain 845.00 Active Problem Hematuria R31.9 Active Problem Dysfunction of Eustachian tube 381.81 Active Problem 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 Active Problem Major depressive disorder, recurrent, severe with psychotic symptoms F33.3 Active Problem Chronic fatigue R53.82 Active Problem Asthma, unspecified, unspecified status 493.90 Active Problem Need for prophylactic vaccination and inoculation, Influenza V04.81 Active Problem Dermatophytosis of the body 110.5 Active Problem Unspecified hypothyroidism 244.9 Active Problem Suicide and self-inflicted injury by unspecified means E958.9 Active Problem Other specified acquired hypothyroidism 244.8 Active Problem Dental examination V72.2 Active Problem Other malaise and fatigue 780.79 Active Problem Major depressive disorder, recurrent episode, severe, specified as with psychotic behavior 296.34 Active Problem Chronic airway obstruction, not elsewhere classified 496 Active Medications Medication Code System Code Instructions Start Date End Date Status Dosage Levothyroxine Sodium [facility] [address]-99 88 MCG Orally Once a day 1 tablet Results No Known Results Summary Purpose [employer] Submission
--- OUTSIDE RECORDS SUMMARY | 2018-06-28 08:31 | XMS REPORT ---
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 Problem Unspecified site of ankle sprain and strain 845.00 Active Problem Major depressive disorder, recurrent episode, unspecified 296.30 Active Problem Pain in joint, ankle and foot 719.47 Active Problem 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 Active Problem Chronic fatigue R53.82 Active Problem Dysfunction of Eustachian tube 381.81 Active Problem Osteoporosis M81.0 Active Problem Pubic bone pain M89.9 Active Problem Asthma, unspecified, unspecified status 493.90 Active Problem Unspecified hypothyroidism 244.9 Active Problem Psoriatic spondylitis L40.53 Active Problem Dermatophytosis of the body 110.5 Active Problem Overactive bladder N32.81 Active Problem Major depressive disorder, recurrent, severe with psychotic symptoms F33.3 Active Problem Hematuria R31.9 Active Problem Increased frequency of urination R35.0 Active Problem Major depressive disorder, recurrent episode, severe, specified as with psychotic behavior 296.34 Active Problem Suicide and self-inflicted injury by unspecified means E958.9 Active Problem Need for prophylactic vaccination and inoculation, Influenza V04.81 Active Problem Dental examination V72.2 Active Problem Chronic airway obstruction, not elsewhere classified 496 Active Problem Unspecified myalgia and myositis 729.1 Active Problem Other specified acquired hypothyroidism 244.8 Active Problem Other malaise and fatigue 780.79 Active Medications Medication Code System Code Instructions Start Date End Date Status Dosage Folic Acid NDC [address]-20 July 28, 2012 by Oral route trazodone NDC 0 50 mg October 26, 2013 1 Tablet by Oral route 1 time per day at bedtime Meloxicam [facility] 01929479886 15 MG TAKE ONE-HALF TABLET BY MOUTH TWICE DAILY fluticasone [facility] [address]-96 50 mcg/actuation Feb 17, 2013 2 sprays by Nasal route 1 time per day Symbicort [facility] [address]-31 160-4.5 mcg/actuation October 26, 2013 inhale 2 puffs by inhalation route 2 times per day in the morning and evening PredniSONE [facility] [address]-73 5 mg July 28, 2012 1 Tablet by Oral route 1 time per day ProAir HFA [facility] [address]-95 108 (90 Base) MCG/ACT Inhalation every 4 hrs 2 puffs as needed Tramadol HCl [facility] [address]-26 50 MG Orally every 6 hrs 1 tablet as needed Levothyroxine Sodium [facility] [address]-23 88 MCG Orally Once a day 1 tablet VESIcare [facility] [address]-92 10 MG Orally Once a day Mar 29, 2015 1 tablet Procedures Procedure Coding System Code Date URINALYSIS, AUTO, W/O SCOPE CPT-4 98938 Feb 01, 2016 [facility] VISIT ESTABLISHED PATIENT CPT-4 G0467 Feb 01, 2016 MEASURE BLOOD OXYGEN LEVEL CPT-4 79251 Feb 01, 2016 Office Visit, Est Pt., Level 3 CPT-4 42932 Feb 01, 2016 Vital Signs Date/Time: Feb 01, 2016 Cardiac Monitoring Heart Rate 94 bpm Weight 146.9 lbs Height 65 in BMI 24.44 Index Oximetry 96 % Blood Pressure Diastolic 80 mmHg Blood Pressure Systolic 126 mmHg Results Name Result Date Reference Range Unit Abnormality Flag UA LONG DIP (IN HOUSE) ----ÁNGELA neg [id number] ----NIT neg [id number] ----SG <=1.005 [id number] ----KET neg [id number] ----TERESA neg [id number] ----GLU neg [id number] ----Odor none [id number] ----pH 6.0 20160201 ----BLO trace [id number] ----URO 0.2 [id number] ----Protein neg [id number] ----Lot # [id number] ----Exp date [id number] ----Clarity slightly cloudy [id number] ----Color light yellow [id number] Summary Purpose [employer] Submission
--- OUTSIDE RECORDS SUMMARY | 2018-06-28 08:31 | XMS REPORT ---
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 [...] Instructions Start Date End Date Status Dosage ProAir HFA [facility] [address]-70 108 (90 Base) MCG/ACT Inhalation every 4 hrs 2 puffs as needed fluticasone [facility] [address]-54 50 mcg/actuation Feb 17, 2013 2 sprays by Nasal route 1 time per day VESIcare [facility] [address]-26 10 MG Orally Once a day Mar 29, 2015 1 tablet Levothyroxine Sodium [facility] [address]-33 88 MCG Orally Once a day 1 tablet Folic Acid [facility] [address]-46 July 28, 2012 by Oral route Meloxicam [facility] 55458902691 15 MG TAKE ONE-HALF TABLET BY MOUTH TWICE DAILY Symbicort [facility] [address]-08 160-4.5 mcg/actuation October 26, 2013 inhale 2 puffs by inhalation route 2 times per day in the morning and evening Prozac [facility] [address]-03 40 MG Orally Once a day Mar 28, 2015 1 capsule in the morning Methotrexate Sodium ND 0 2.5 MG Orally October 26, 2013 6 Tablet by Oral route 1 time per week PredniSONE [facility] [address]-82 5 mg July 28, 2012 1 Tablet by Oral route 1 time per day trazodone NDC 0 50 mg October 26, 2013 1 Tablet by Oral route 1 time per day at bedtime Tramadol HCl [facility] [address]-52 50 MG Orally every 6 hrs 1 tablet as needed Procedures Procedure Coding System Code Date Office Visit, Susan Pt., Level 3 CPT-4 34107 November 06, 2015 [facility] VISIT ESTABLISHED PATIENT CPT-4 G0467 November 06, 2015 Vital Signs Date/Time: November 06, 2015 Cardiac Monitoring Heart Rate 78 bpm Weight 146.6 lbs Height 65 in BMI 24.39 Index Blood Pressure Diastolic 82 mmHg Blood Pressure Systolic 126 mmHg Results No Known Results Summary Purpose [employer] Submission
--- OUTSIDE RECORDS SUMMARY | 2018-06-28 08:31 | XMS REPORT ---
Author Author KELVIN GRULLON [facility] Address [address] [place] [address] Care Team Providers Care Personnel Adviser Name Role Phone KELVIN GRULLON Unavailable PROBLEMS Type Condition ICD9-CM Code QTK20-WH Code Onset Dates Condition Status SNOMED Code Problem Dental examination V72.2 Active 18113847 Problem Need for prophylactic vaccination and inoculation, Influenza V04.81 Active 857447720 Problem Suicide and self-inflicted injury by unspecified means E958.9 Active Problem Dermatophytosis of the body 110.5 Active 624281127 Problem Unspecified site of ankle sprain and strain 845.00 Active 94451681 Problem Increased frequency of urination R35.0 Active 604667829 Problem Other malaise and fatigue 780.79 Active 610962049 Problem Chronic fatigue R53.82 Active 83375114 Problem Major depressive disorder, recurrent, severe with psychotic symptoms F33.3 Active 33159753 Problem Overactive bladder N32.81 Active 476760915 Problem Environmental allergies Z91.09 Active 529089820 Problem COPD (chronic obstructive pulmonary disease) J44.9 Active 96272148 Problem 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 Active 98944711 Problem Pain in joint, ankle and foot 719.47 Active 740021141 Problem Unspecified myalgia and myositis 729.1 Active 366727498 Problem Psoriatic spondylitis L40.53 Active 841520194 Problem Hematuria R31.9 Active 38035570 Problem Pubic bone pain M89.9 Active 27496966 Problem Osteoporosis M81.0 Active 44451378 Problem Dysfunction of Eustachian tube 381.81 Active 76032946 Problem 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 61126766 Problem Chronic airway obstruction, not elsewhere classified 496 Active 35598037 Problem Asthma, unspecified, unspecified status 493.90 Active 94756111 Problem Major depressive disorder, recurrent episode, severe, specified as with psychotic behavior 296.34 Active 35079908 Problem Major depressive disorder, recurrent episode, unspecified 296.30 Active 41261225 Problem Unspecified hypothyroidism 244.9 Active 19575402 Problem Other specified acquired hypothyroidism 244.8 Active 855341165 ALLERGIES Unknown Allergies SOCIAL HISTORY No smoking Hx information available PLAN OF CARE VITAL SIGNS MEDICATIONS Medication Instructions Dosage Frequency Start Date End Date Duration Status Albuterol Sulfate (2.5 MG/3ML) 0.083% Inhalation 4 times a day 3 ml 6h Feb, 30 days Active RESULTS No Results PROCEDURES No Known procedures IMMUNIZATIONS No Known Immunizations
--- OUTSIDE RECORDS SUMMARY | 2018-06-28 08:31 | XMS REPORT ---
Author Author KELVIN GRULLON [facility] Address [address] [place] [address] Care Team Providers Care Neurology Physician Name Role Phone KELVIN GRULLON Unavailable PROBLEMS Type Condition ICD9-CM Code MIX00-RM Code Onset Dates Condition Status SNOMED Code Problem Unspecified site of ankle sprain and strain 845.00 Active 52969792 Problem Pain in joint, ankle and foot 719.47 Active 381187537 Problem 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 Active 25307275 Problem Dermatophytosis of the body 110.5 Active 844882442 Problem Dysfunction of Eustachian tube 381.81 Active 28956179 Problem Unspecified hypothyroidism 244.9 Active 94304965 Problem Chronic fatigue R53.82 Active 87934436 Problem Overactive bladder N32.81 Active 966049580 Problem Major depressive disorder, recurrent, severe with psychotic symptoms F33.3 Active 15222688 Problem COPD (chronic obstructive pulmonary disease) J44.9 Active 63125526 Problem Psoriatic spondylitis L40.53 Active 973816206 Problem Dental examination V72.2 Active 71772561 Problem Need for prophylactic vaccination and inoculation, Influenza V04.81 Active 038660325 Problem Asthma, unspecified, unspecified status 493.90 Active 66858260 Problem Hematuria R31.9 Active 54010462 Problem Increased frequency of urination R35.0 Active 784998862 Problem Osteoporosis M81.0 Active 13230437 Problem Pubic bone pain M89.9 Active 07307416 Problem Other specified acquired hypothyroidism 244.8 Active 130738297 Problem Other malaise and fatigue 780.79 Active 813362871 Problem Major depressive disorder, recurrent episode, severe, specified as with psychotic behavior 296.34 Active 99877478 Problem Suicide and self-inflicted injury by unspecified means E958.9 Active Problem 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
--- OUTSIDE RECORDS SUMMARY | 2018-06-28 08:31 | XMS REPORT ---
Author JARED Valdez [employer] Address Unknown Phone Unavailable Care Team Providers Care Rock Crusher Operator Name Role Phone JARED WIGGINS CP Unavailable Allergies, Adverse Reactions, Alerts Substance Reaction Event Type Naproxen Info Not Available Drug Allergy Cymbalta " Out of Space" Drug Allergy Problems Problem Type Condition Code Onset Dates Condition Status Problem Other specified acquired hypothyroidism 244.8 Active Assessment Chronic fatigue R53.82 Active Problem Other malaise and fatigue 780.79 Active Assessment Major depressive disorder, recurrent, severe with psychotic symptoms F33.3 Active Problem Chronic airway obstruction, not elsewhere classified 496 Active Problem 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 Problem Unspecified myalgia and myositis 729.1 Active Problem Overactive bladder N32.81 Active Problem Major depressive disorder, recurrent, severe with psychotic symptoms F33.3 Active Problem Unspecified site of ankle sprain and strain 845.00 Active Assessment Increased frequency of urination R35.0 Active Problem Increased frequency of urination R35.0 Active Assessment Overactive bladder N32.81 Active Problem 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 Active Problem Major depressive disorder, recurrent episode, unspecified 296.30 Active Problem Chronic fatigue R53.82 Active Problem Dysfunction of Eustachian tube 381.81 Active Problem Unspecified hypothyroidism 244.9 Active Problem Asthma, unspecified, unspecified status 493.90 Active Problem Pain in joint, ankle and foot 719.47 Active Problem Dermatophytosis of the body 110.5 Active Problem Major depressive disorder, recurrent episode, severe, specified as with psychotic behavior 296.34 Active Problem Suicide and self-inflicted injury by unspecified means E958.9 Active Problem Need for prophylactic vaccination and inoculation, Influenza V04.81 Active Problem Dental examination V72.2 Active Medications Medication Code System Code Instructions Start Date End Date Status Dosage trazodone NDC 0 50 mg October 26, 2013 1 Tablet by Oral route 1 time per day at bedtime levothyroxine NDC 0 88 mcg May 04, 2014 take 1 tablet (88 mcg) by oral route once daily ProAir HFA [facility] [address]-71 108 (90 Base) MCG/ACT Inhalation every 4 hrs 2 puffs as needed fluticasone [facility] [address]-88 50 mcg/actuation Feb 17, 2013 2 sprays by Nasal route 1 time per day PredniSONE [facility] [address]-70 5 mg July 28, 2012 1 Tablet by Oral route 1 time per day Folic Acid [facility] [address]-71 July 28, 2012 by Oral route Symbicort [facility] [address]-72 160-4.5 mcg/actuation October 26, 2013 inhale 2 puffs by inhalation route 2 times per day in the morning and evening Meloxicam [facility] [address]-16 15 mg October 26, 2013 0.5 Tablet by Oral route 2 times per day Tramadol HCl [facility] [address]-78 50 MG Orally every 6 hrs 1 tablet as needed Methotrexate Sodium ND 0 2.5 MG Orally October 26, 2013 6 Tablet by Oral route 1 time per week ZyrTEC [facility] 0 July 28, 2012 by Oral route Procedures Procedure Coding System Code Date [facility] VISIT ESTABLISHED PATIENT CPT-4 G0467 Feb 22, 2015 Office Visit, Est Pt., Level 3 CPT-4 21186 Feb 22, 2015 URINALYSIS, AUTO, W/O SCOPE CPT-4 18341 Feb 22, 2015 Vital Signs Date/Time: Feb 22, 2015 Temperature 98.5 F Weight 154.4 lbs Height 65 in BMI 25.69 Index Blood Pressure Diastolic 80 mmHg Blood Pressure Systolic 120 mmHg Cardiac Monitoring Heart Rate 78 bpm Results Name Result Date Reference Range Unit Abnormality Flag UA LONG DIP (IN HOUSE) Summary Purpose [employer] Submission
--- OUTSIDE RECORDS SUMMARY | 2018-06-28 08:31 | XMS REPORT ---
Author Author KELVIN GRULLON Organization [employer] Address Unknown Phone Unavailable Care Team Providers Care Esthetician Spa Name Role Phone KELVIN GRULLON CP Unavailable Allergies No Known Allergies Problems Problem Type Condition Code Onset Dates Condition Status Problem Major depressive disorder, recurrent episode, severe, specified as with psychotic behavior 296.34 Active Problem Other specified acquired hypothyroidism 244.8 Active Problem Suicide and self-inflicted injury by unspecified means E958.9 Active Problem 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 Active Problem Major depressive disorder, recurrent episode, unspecified 296.30 Active Problem Dysfunction of Eustachian tube 381.81 Active Problem Chronic airway obstruction, not elsewhere classified 496 Active Problem Other malaise and fatigue 780.79 Active Problem 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 Problem Unspecified myalgia and myositis 729.1 Active Problem Unspecified site of ankle sprain and strain 845.00 Active Problem Unspecified hypothyroidism 244.9 Active Problem Asthma, unspecified, unspecified status 493.90 Active Problem Pain in joint, ankle and foot 719.47 Active Problem Need for prophylactic vaccination and inoculation, Influenza V04.81 Active Problem Dermatophytosis of the body 110.5 Active Problem Dental examination V72.2 Active Medications Medication Code System Code Instructions Start Date End Date Status Dosage Tudorza Pressair [facility] [address]-20 400 MCG/ACT Inhalation Twice a day Feb 17, 2015 1 puff Methotrexate Sodium NDC 0 2.5 MG Orally October 26, 2013 6 Tablet by Oral route 1 time per week Results No Known Results Summary Purpose [employer] Submission
--- OUTSIDE RECORDS SUMMARY | 2018-06-28 08:32 | XMS REPORT ---
Author Author KELVIN GRULLON Organization [employer] Address Unknown Phone Unavailable Care Team Providers Care Manager Fine Name Role Phone KELVIN GRULLON CP Unavailable [...] Instructions Start Date End Date Status Dosage Methotrexate Sodium NDC 0 2.5 MG Orally October 26, 2013 6 Tablet by Oral route 1 time per week Results No Known Results Summary Purpose [employer] Submission
--- OUTSIDE RECORDS SUMMARY | 2018-06-28 08:32 | XMS REPORT ---
Author Author KELVIN GRULLON [facility] Address [address] [place] [address] Care Team Providers Care Aviation Medicine Specialist Name Role Phone KELVIN GRULLON Unavailable PROBLEMS Type Condition ICD9-CM Code ZBG33-TV Code Onset Dates Condition Status SNOMED Code Assessment Hypothyroidism, unspecified E03.9 13 Dec, 2015 Active 64718529 Assessment Psoriatic arthritis L40.50 Dec, Active 062908961 Problem Unspecified site of ankle sprain and strain 845.00 Active 54711204 Problem Major depressive disorder, recurrent episode, unspecified 296.30 Active 543366656 Problem Pain in joint, ankle and foot 719.47 Active 032170483 Problem 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 Active 79403643 Problem Dermatophytosis of the body 110.5 Active 751333468 Problem Dysfunction of Eustachian tube 381.81 Active 73901039 Problem Major depressive disorder, recurrent, severe with psychotic symptoms F33.3 Active 17745936 Problem Chronic fatigue R53.82 Active 84649816 Problem Psoriatic spondylitis L40.53 Active 150807908 Problem Osteoporosis M81.0 Active 28630737 Problem Need for prophylactic vaccination and inoculation, Influenza V04.81 Active 623112628 Problem Asthma, unspecified, unspecified status 493.90 Active 55438162 Problem Unspecified hypothyroidism 244.9 Active 75964516 Problem Increased frequency of urination R35.0 Active 784451425 Problem Overactive bladder N32.81 Active 433478653 Problem Pubic bone pain M89.9 Active 02146520 Problem Hematuria R31.9 Active 85417488 Problem Suicide and self-inflicted injury by unspecified means E958.9 Active Problem Other specified acquired hypothyroidism 244.8 Active 347661363 Problem Dental examination V72.2 Active 94784169 Problem Major depressive disorder, recurrent episode, severe, specified as with psychotic behavior 296.34 Active 95565982 Problem Unspecified myalgia and myositis 729.1 Active 611778606 Problem 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 48768983 Problem Other malaise and fatigue 780.79 Active 301001687 Problem Chronic airway obstruction, not elsewhere classified 496 Active 72517755 ALLERGIES Unknown Allergies SOCIAL HISTORY No smoking Hx information available PLAN OF CARE VITAL SIGNS MEDICATIONS Unknown Medications RESULTS Name Result Date Reference Range TSH 2016-01-09 TSH 0.809 0.450-4.500 CBC 2016-01-09 WBC 10.6 3.4-10.8 RBC 4.81 3.77-5.28 Hemoglobin 14.6 11.1-15.9 Hematocrit 43.8 34.0-46.6 MCV 91 79-97 MCH 30.4 26.6-33.0 MCHC 33.3 31.5-35.7 RDW 13.2 12.3-15.4 Platelets 386 150-379 Neutrophils 70 Lymphs 21 Monocytes 7 Eos 1 Basos 1 Neutrophils (Absolute) 7.4 1.4-7.0 Lymphs (Absolute) 2.2 0.7-3.1 Monocytes(Absolute) 0.7 0.1-0.9 Eos (Absolute) 0.2 0.0-0.4 Baso (Absolute) 0.1 0.0-0.2 Immature Granulocytes 0 Immature Grans (Abs) 0.0 0.0-0.1 ESR/SED RATE 2016-01-09 Sedimentation Rate-Westergren 15 0-40 CMP 2016-01-09 Glucose, Serum 99 65-99 BUN 8 6-24 Creatinine, Serum 0.73 0.57-1.00 eGFR If NonAfricn Am 96 >59 eGFR If Africn Am 111 >59 BUN/Creatinine Ratio 11 9-23 Sodium, Serum 143 134-144 Potassium, Serum 4.5 3.5-5.2 Chloride, Serum 102 97-108 Carbon Dioxide, Total 25 18-29 Calcium, Serum 9.8 8.7-10.2 Protein, Total, Serum 7.3 6.0-8.5 Albumin, Serum 4.7 3.5-5.5 Globulin, Total 2.6 1.5-4.5 A/G Ratio 1.8 1.1-2.5 Bilirubin, Total 0.4 0.0-1.2 Alkaline Phosphatase, S 53 39-117 AST (SGOT) 16 0-40 ALT (SGPT) 12 0-32 PROCEDURES Procedure Date Ordered Related Diagnosis Body Site ROUTINE VENIPUNCTURE 2016-01-09 N/A LAB [facility] Jan 09, 2016 VENIPUNCT, ROUTINE* Jan 09, 2016 IMMUNIZATIONS No Known Immunizations
--- OUTSIDE RECORDS SUMMARY | 2018-06-28 08:32 | XMS REPORT ---
Author Author KELVIN GRULLON [facility] Address [address] [place] [address] Care Team Providers Care Mechanical Assembly Technician Name Role Phone KELVIN GRULLON Unavailable PROBLEMS Type Condition ICD9-CM Code GVS21-OD Code Onset Dates Condition Status SNOMED Code Problem Dental examination V72.2 Active 56372417 Problem Need for prophylactic vaccination and inoculation, Influenza V04.81 Active 558182025 Problem Suicide and self-inflicted injury by unspecified means E958.9 Active Problem Dermatophytosis of the body 110.5 Active 607162657 Problem Unspecified site of ankle sprain and strain 845.00 Active 84132896 Problem Increased frequency of urination R35.0 Active 841985563 Problem Other malaise and fatigue 780.79 Active 026657034 Problem Chronic fatigue R53.82 Active 12019090 Problem Major depressive disorder, recurrent, severe with psychotic symptoms F33.3 Active 21484552 Problem Overactive bladder N32.81 Active 158288763 Problem Environmental allergies Z91.09 Active 272969226 Problem COPD (chronic obstructive pulmonary disease) J44.9 Active 05602969 Problem 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 Active 92704400 Problem Pain in joint, ankle and foot 719.47 Active 865907363 Problem Unspecified myalgia and myositis 729.1 Active 415327809 Problem Psoriatic spondylitis L40.53 Active 761231444 Problem Hematuria R31.9 Active 39001910 Problem Pubic bone pain M89.9 Active 72276833 Problem Osteoporosis M81.0 Active 24817570 Problem Dysfunction of Eustachian tube 381.81 Active 34329256 Problem 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 52174446 Problem Chronic airway obstruction, not elsewhere classified 496 Active 91474351 Problem Asthma, unspecified, unspecified status 493.90 Active 03333951 Problem Major depressive disorder, recurrent episode, severe, specified as with psychotic behavior 296.34 Active 55355861 Problem Major depressive disorder, recurrent episode, unspecified 296.30 Active 71482147 Problem Unspecified hypothyroidism 244.9 Active 73948822 Problem Other specified acquired hypothyroidism 244.8 Active 761417524 ALLERGIES Unknown Allergies SOCIAL HISTORY No smoking Hx information available PLAN OF CARE VITAL SIGNS MEDICATIONS Medication Instructions Dosage Frequency Start Date End Date Duration Status Albuterol Sulfate (2.5 MG/3ML) 0.083% Inhalation 4 times a day 3 ml 6h Feb, 30 days Active RESULTS No Results PROCEDURES No Known procedures IMMUNIZATIONS No Known Immunizations
--- OUTSIDE RECORDS SUMMARY | 2018-06-28 08:32 | XMS REPORT ---
Author Author KELVIN GRULLON [facility] Address [address] [place] [address] Care Team Providers Care Steam Pressure Chamber Operator Name Role Phone KELVIN GRULLON Unavailable PROBLEMS Type Condition ICD9-CM Code MSS09-ZG Code Onset Dates Condition Status SNOMED Code Problem Dental examination V72.2 Active 37637459 Problem Need for prophylactic vaccination and inoculation, Influenza V04.81 Active 517078657 Problem Suicide and self-inflicted injury by unspecified means E958.9 Active Problem Dermatophytosis of the body 110.5 Active 944714123 Problem Unspecified site of ankle sprain and strain 845.00 Active 46131220 Problem Increased frequency of urination R35.0 Active 854401502 Problem Other malaise and fatigue 780.79 Active 185457548 Problem Chronic fatigue R53.82 Active 97800647 Problem Major depressive disorder, recurrent, severe with psychotic symptoms F33.3 Active 64162233 Problem Overactive bladder N32.81 Active 705177318 Problem Environmental allergies Z91.09 Active 398018053 Problem COPD (chronic obstructive pulmonary disease) J44.9 Active 94585623 Problem 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 Active 88618828 Problem Pain in joint, ankle and foot 719.47 Active 054901240 Problem Unspecified myalgia and myositis 729.1 Active 253737516 Problem Psoriatic spondylitis L40.53 Active 434450873 Problem Hematuria R31.9 Active 32789072 Problem Pubic bone pain M89.9 Active 24882895 Problem Osteoporosis M81.0 Active 28332452 Problem Dysfunction of Eustachian tube 381.81 Active 78457480 Problem 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 47436062 Problem Chronic airway obstruction, not elsewhere classified 496 Active 45645723 Problem Asthma, unspecified, unspecified status 493.90 Active 01143369 Problem Major depressive disorder, recurrent episode, severe, specified as with psychotic behavior 296.34 Active 22349065 Problem Major depressive disorder, recurrent episode, unspecified 296.30 Active 02432295 Problem Unspecified hypothyroidism 244.9 Active 67295100 Problem Other specified acquired hypothyroidism 244.8 Active 428204484 ALLERGIES Substance Reaction Event Type Date Status Naproxen Unknown Drug Allergy Apr, Active Cymbalta " Out of Space" Drug Allergy Apr, Active SOCIAL HISTORY No smoking Hx information available PLAN OF CARE Activity Details Follow Up prn Reason: VITAL SIGNS Height 65 in 2016-05-06 Weight 144.8 lbs 2016-05-06 Temperature 98.4 degrees Fahrenheit 2016-05-06 Heart Rate 70 bpm 2016-05-06 Respiratory Rate 16 2016-05-06 BMI 24.09 kg/m2 2016-05-06 Blood pressure systolic 122 mmHg 2016-05-06 Blood pressure diastolic 72 mmHg 2016-05-06 MEDICATIONS Medication Instructions Dosage Frequency Start Date End Date Duration Status fluticasone 50 mcg/actuation 2 sprays by Nasal route 1 time per day Jan, Active Folic Acid by Oral route Jul, Active VESIcare 10 MG Orally Once a day 1 tablet 24h Mar, Active Meloxicam 15 MG TAKE ONE-HALF TABLET BY MOUTH TWICE DAILY 30 Active Benadryl 50 mg Orally once or twice a day as needed for allergies Active Claritin 10 MG Orally Once a day 1 tablet 24h Active PredniSONE 20 MG 2 tabs for 3 days then 1 tablet for 4 days Active Tramadol HCl 50 MG Orally every 6 hrs 1 tablet as needed 6h Active ProAir HFA 108 (90 Base) MCG/ACT Inhalation every 4 hrs 2 puffs as needed 4h Active Levothyroxine Sodium 88 MCG Orally Once a day 1 tablet 24h 90 Active trazodone 50 mg 1 Tablet by Oral route 1 time per day at bedtime Oct Active Albuterol Sulfate (2.5 MG/3ML) 0.083% Inhalation 4 times a day 3 ml 6h Feb, Active Budesonide 0.5 MG/2ML Inhalation Four times a day 2 ml 6h Feb, Active RESULTS No Results PROCEDURES Procedure Date Ordered Related Diagnosis Body Site [facility] ESTABLISHED PATIENT May 06, 2016 Office Visit, Est Pt., Level 3 May 06, 2016 IMMUNIZATIONS No Known Immunizations
--- OUTSIDE RECORDS SUMMARY | 2018-06-28 08:32 | XMS REPORT ---
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
--- OUTSIDE RECORDS SUMMARY | 2018-06-28 08:32 | XMS REPORT ---
Author Author KELVIN GRULLON Organization [employer] Address Unknown Phone Unavailable Care Team Providers Care Flotation Tender Name Role Phone KELVIN GRULLON CP Unavailable [...] Instructions Start Date End Date Status Dosage V[facility]care [facility] [address]-02 10 MG Orally Once a day Mar 29, 2015 1 tablet Results No Known Results Summary Purpose eClinicalWorks Submission
--- OUTSIDE RECORDS SUMMARY | 2018-06-28 08:32 | XMS REPORT ---
Author Author [facility] Address [address] [place] [address] Care Team Providers Care Director Of Video Analytics Name Role Phone KELVIN GRULLON Unavailable PROBLEMS Type Condition ICD9-CM Code CEL07-ZD Code Onset Dates Condition Status SNOMED Code Problem Dental examination V72.2 Active 60942226 Problem Need for prophylactic vaccination and inoculation, Influenza V04.81 Active 046651038 Problem Suicide and self-inflicted injury by unspecified means E958.9 Active Problem Unspecified site of ankle sprain and strain 845.00 Active 52254402 Problem Increased frequency of urination R35.0 Active 228223116 Problem Other malaise and fatigue 780.79 Active 044363218 Problem Chronic fatigue R53.82 Active 93104924 Problem Unspecified myalgia and myositis 729.1 Active 345910344 Problem Major depressive disorder, recurrent, severe with psychotic symptoms F33.3 Active 52324389 Problem Hematuria R31.9 Active 27798034 Problem Overactive bladder N32.81 Active 801375569 Problem Hypothyroidism, unspecified E03.9 Active 60712666 Problem Environmental allergies Z91.09 Active 915361799 Problem Chronic airway obstruction, not elsewhere classified 496 Active 97304389 Problem 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 Active 57304598 Problem Pain in joint, ankle and foot 719.47 Active 880974307 Problem Osteoporosis M81.0 Active 17959658 Problem Psoriatic spondylitis L40.53 Active 659306631 Problem COPD (chronic obstructive pulmonary disease) J44.9 Active 89018675 Problem Pubic bone pain M89.9 Active 12020247 Problem 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 37031626 Problem Unspecified hypothyroidism 244.9 Active 53820657 Problem Asthma, unspecified, unspecified status 493.90 Active 80242921 Problem Dysfunction of Eustachian tube 381.81 Active 93452144 Problem Major depressive disorder, recurrent episode, unspecified 296.30 Active 90804573 Problem Dermatophytosis of the body 110.5 Active 902554030 Problem Other specified acquired hypothyroidism 244.8 Active 172332363 Problem Major depressive disorder, recurrent episode, severe, specified as with psychotic behavior 296.34 Active 98215987 ALLERGIES Substance Reaction Event Type Date Status Naproxen Unknown Drug Allergy August, Active Cymbalta " Out of Space" Drug Allergy August, Active SOCIAL HISTORY Never Assessed PLAN OF CARE Activity Details Follow Up 4 Weeks Reason:copd VITAL SIGNS Height 65 in 2016-09-03 Weight 140.0 lbs 2016-09-03 Temperature 98.3 degrees Fahrenheit 2016-09-03 Heart Rate 80 bpm 2016-09-03 Respiratory Rate 16 2016-09-03 BMI 23.29 kg/m2 2016-09-03 Blood pressure systolic 116 mmHg 2016-09-03 Blood pressure diastolic 72 mmHg 2016-09-03 MEDICATIONS Medication Instructions Dosage Frequency Start Date End Date Duration Status Incruse Ellipta 62.5 MCG/INH Inhalation Once a day 1 puff 24h August, Active Claritin 10 MG Orally Once a day 1 tablet 24h Active ProAir HFA 108 (90 Base) MCG/ACT Inhalation every 4 hrs 2 puffs as needed 4h Active Meloxicam 15 MG TAKE ONE-HALF TABLET BY MOUTH TWICE DAILY 30 Active Tramadol HCl 50 MG Orally every 6 hrs 1 tablet as needed 6h Active Benadryl 50 mg Orally once or twice a day as needed for allergies Active Levothyroxine Sodium 88MCG Orally Once a day 1 tablet 24h 90 Active trazodone 50 mg 1 Tablet by Oral route 1 time per day at bedtime Oct Active Albuterol Sulfate (2.5 MG/3ML) 0.083% Inhalation 4 times a day 3 ml 6h Feb, 30 days Active Levothyroxine Sodium 88 MCG Orally Once a day 1 tablet 24h 90 Active Budesonide 0.5 MG/2ML Inhalation Four times a day 2 ml 6h Active fluticasone 50 mcg/actuation 2 sprays by Nasal route 1 time per day Jan, Active PredniSONE 20 MG 2 tabs for 3 days then 1 tablet for 4 days Active Albuterol Sulfate (2.5 MG/3ML) 0.083% Inhalation 4 times a day 3 ml 6h 30 Active RESULTS No Results PROCEDURES Procedure Date Ordered Result Body Site PULMONARY FUNCTION TEST 2016-09-03 N/A [facility] VISIT ESTABLISHED PATIENT September 03, 2016 IMMUNIZATIONS No Known Immunizations MEDICAL (GENERAL) HISTORY Type Description Date Medical [...]
--- OUTSIDE RECORDS SUMMARY | 2018-06-28 08:32 | XMS REPORT ---
Author JARED Valdez eClinical[employer] Address Unknown Phone Unavailable Care Team Providers Care Signs And Displays Sales Representative Name Role Phone JARED WIGGINS CP Unavailable Allergies, Adverse Reactions, Alerts Substance Reaction Event Type Naproxen Info Not Available Drug Allergy Cymbalta " Out of Space" Drug Allergy Problems Problem Type Condition Code Onset Dates Condition Status Assessment Major depressive disorder, recurrent, severe with psychotic symptoms F33.3 Active Problem Other malaise and fatigue 780.79 Active Assessment Hematuria R31.9 Active Problem Chronic airway obstruction, not elsewhere classified 496 Active Assessment Increased frequency of urination R35.0 Active Problem Unspecified myalgia and myositis 729.1 Active Problem Major depressive disorder, recurrent episode, unspecified 296.30 Active Problem 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 Problem Increased frequency of urination R35.0 Active Problem Overactive bladder N32.81 Active Problem Pain in joint, ankle and foot 719.47 Active Problem Unspecified site of ankle sprain and strain 845.00 Active Problem Hematuria R31.9 Active Assessment Overactive bladder N32.81 Active Problem Dysfunction of Eustachian tube 381.81 [...] Active Problem Dental examination V72.2 Active Problem Major depressive disorder, recurrent episode, severe, specified as with psychotic behavior 296.34 Active Medications Medication Code System Code Instructions Start Date End Date Status Dosage Tramadol HCl [facility] [address]-09 50 MG Orally every 6 hrs 1 tablet as needed Symbicort [facility] [address]-80 160-4.5 mcg/actuation October 26, 2013 inhale 2 puffs by inhalation route 2 times per day in the morning and evening PredniSONE [facility] [address]-36 5 mg July 28, 2012 1 Tablet by Oral route 1 time per day Oxybutynin Chloride [facility] [address]-90 5 MG Orally Twice a day Mar 28, 2015 1 tablet Methotrexate Sodium ND 0 2.5 MG Orally October 26, 2013 6 Tablet by Oral route 1 time per week trazodone ND 0 50 mg October 26, 2013 1 Tablet by Oral route 1 time per day at bedtime levothyroxine ND 0 88 mcg May 04, 2014 take 1 tablet (88 mcg) by oral route once daily ZyrTEC ND 0 July 28, 2012 by Oral route Folic Acid [facility] [address]-07 July 28, 2012 by Oral route Cephalexin [facility] [address]-15 500 MG Orally 3 times a day Mar 28, 2015 Apr 04, 2015 1 capsule Meloxicam [facility] [address]-59 15 mg October 26, 2013 0.5 Tablet by Oral route 2 times per day fluticasone [facility] [address]-66 50 mcg/actuation Feb 17, 2013 2 sprays by Nasal route 1 time per day ProAir HFA [facility] [address]-67 108 (90 Base) MCG/ACT Inhalation every 4 hrs 2 puffs as needed Prozac [facility] [address]-15 40 MG Orally Once a day Mar 28, 2015 1 capsule in the morning Procedures Procedure Coding System Code Date [facility]4 NOBLL Mar 28, 2015 [facility] VISIT ESTABLISHED PATIENT CPT-4 G0467 Mar 28, 2015 URINALYSIS, AUTO, W/O SCOPE CPT-4 40935 Mar 28, 2015 Office Visit, Est Pt., Level 3 CPT-4 55212 Mar 28, 2015 Vital Signs Date/Time: Mar 28, 2015 Temperature 98.2 F Weight 156.2 lbs Height 65 in BMI 25.99 Index Blood Pressure Diastolic 60 mmHg Blood Pressure Systolic 132 mmHg Cardiac Monitoring Heart Rate 60 bpm Results Name Result Date Reference Range Unit Abnormality Flag UA LONG DIP (IN HOUSE) ----ÁNGELA neg [id number] ----NIT neg [id number] ----SG 1.025 20150328 ----KET neg [id number] ----TERESA neg [id number] ----GLU neg [id number] ----Odor no [id number] ----pH 6.5 20150328 ----BLO trace [id number] ----URO 0.2 20150328 ----Protein neg [id number] ----Lot # [id number] ----Exp date [id number] ----Clarity clear [id number] ----Color yellow [id number] CULTURE, URINE ----Result 1 No growth [id number] ----Urine Culture, Routine Final report [id number] Summary Purpose eClinicalWorks Submission
--- OUTSIDE RECORDS SUMMARY | 2018-06-28 08:33 | XMS REPORT | Continuity of Care Document ---
Author Author [facility] Address Unknown Phone Unavailable Allergies Active Description Code Type Severity Reaction Onset Reported/Identified Relationship to Patient Clinical Status Yes naproxen [id number] Drug Allergy Mild N/A 02/29/2008 Yes Cymbalta Drug Allergy N/A N/A 07/28/2012 Yes naproxen Drug Allergy N/A N/A 07/28/2012 Yes Cymbalta Drug Allergy 07/28/2012 Yes naproxen Drug Allergy 07/28/2012 Yes naproxen [id number] Drug Allergy Mild ITCHING 06/22/2018 Medications There is no data. Problems Date Dx Coded Attending Type Code Diagnosis Diagnosed By 07/28/2012 KHADAR TA DO 296.30 MO DEPRESSIVE RECURRENT UNSPECIFIED 07/28/2012 KHADAR TA DO 300.21 AN PANIC DIS W AGORA 07/28/2012 296.30 MO DEPRESSIVE RECURRENT UNSPECIFIED 07/28/2012 300.21 AN PANIC DIS W AGORA 07/28/2012 JOANA AGUILAR PSYD 296.30 MO DEPRESSIVE RECURRENT UNSPECIFIED 07/28/2012 JOANA AGUILAR PSYD 300.21 AN PANIC DIS W AGORA 07/28/2012 KELVIN GRULLON MD 296.30 MO DEPRESSIVE RECURRENT UNSPECIFIED 07/28/2012 KELVIN GRULLON MD 300.21 AN PANIC DIS W AGORA 07/28/2012 KELVIN GRULLON MD 296.30 MO DEPRESSIVE RECURRENT UNSPECIFIED 07/28/2012 KELVIN GRULLON MD 300.21 AN PANIC DIS W AGORA 07/28/2012 KELVIN GRULLON MD 296.30 MO DEPRESSIVE RECURRENT UNSPECIFIED 07/28/2012 KELVIN GRULLON MD 300.21 AN PANIC DIS W AGORA 07/28/2012 KELVIN GRULLON MD 296.30 MO DEPRESSIVE RECURRENT UNSPECIFIED 07/28/2012 KELVIN GRULLON MD 300.21 AN PANIC DIS W AGORA 07/28/2012 YADI CM, KELVIN Hill 296.30 MO DEPRESSIVE RECURRENT UNSPECIFIED 07/28/2012 YADI CM, KELVIN Hill 300.21 AN PANIC DIS W AGORA 07/28/2012 YURIY DDS, EMELIA D 296.30 MO DEPRESSIVE RECURRENT UNSPECIFIED 07/28/2012 YURIY FERNANDOS, EMELIA D 300.21 AN PANIC DIS W AGORA 02/15/2013 KELVIN GRULLON MD 244.9 HYPOTHYROIDISM 02/15/2013 KELVIN GRULLON MD 493.90 ASTHMA UNSPECIFIED 02/15/2013 KELVIN GRULLON MD V04.81 FLU SHOT 02/15/2013 KELVIN GRULLON MD 244.9 HYPOTHYROIDISM 02/15/2013 KELVIN GRULLON MD 493.90 ASTHMA UNSPECIFIED 02/15/2013 KELVIN GRULLON MD V04.81 FLU SHOT 02/15/2013 KELVIN GRULLON MD 244.9 HYPOTHYROIDISM 02/15/2013 KELVIN GRULLON MD 493.90 ASTHMA UNSPECIFIED 02/15/2013 KELVIN GRULLON MD V04.81 FLU SHOT 02/15/2013 KELVIN GRULLON MD 244.9 HYPOTHYROIDISM 02/15/2013 KELVIN GRULLON MD 493.90 ASTHMA UNSPECIFIED 02/15/2013 KELVIN GRULLON MD V04.81 FLU SHOT 02/15/2013 KELVIN GRULLON MD 244.9 HYPOTHYROIDISM 02/15/2013 KELVIN GRULLON MD 493.90 ASTHMA UNSPECIFIED 02/15/2013 KELVIN GRULLON MD V04.81 FLU SHOT 02/15/2013 YURIY FERNANDOS, EMELIA D 244.9 HYPOTHYROIDISM 02/15/2013 YURIY FERNANDOS, EMELIA D 493.90 ASTHMA UNSPECIFIED 02/15/2013 YURIY FERNANDOS, EMELIA D V04.81 FLU SHOT 04/06/2013 KELVIN GRULLON MD 244.8 OTHER SPECIFIED ACQUIRED HYPOTHYROIDISM 04/06/2013 KELVIN GRULLON MD 496 CHRONIC AIRWAY OBSTRUCTION NOT ELSEWHERE CLASSIFIED 04/06/2013 KELVIN GRULLON MD 729.1 MYALGIA AND MYOSITIS UNSPECIFIED 04/06/2013 KELVIN GRULLON MD 780.79 OTHER MALAISE AND FATIGUE 04/06/2013 KELVIN GRULLON MD 244.8 OTHER SPECIFIED ACQUIRED HYPOTHYROIDISM 04/06/2013 KELVIN GRULLON MD 496 CHRONIC AIRWAY OBSTRUCTION NOT ELSEWHERE CLASSIFIED 04/06/2013 KELVIN GURLLON MD 729.1 MYALGIA AND MYOSITIS UNSPECIFIED 04/06/2013 KELVIN GRULLON MD 780.79 OTHER MALAISE AND FATIGUE 04/06/2013 KELVIN GRULLON MD 244.8 OTHER SPECIFIED ACQUIRED HYPOTHYROIDISM 04/06/2013 KELVIN GRULLON MD 496 CHRONIC AIRWAY OBSTRUCTION NOT ELSEWHERE CLASSIFIED 04/06/2013 KELVIN GRULLON MD 729.1 MYALGIA AND MYOSITIS UNSPECIFIED 04/06/2013 KELVIN GRULLON MD 780.79 OTHER MALAISE AND FATIGUE 04/06/2013 KELVIN GRULLON MD 244.8 OTHER SPECIFIED ACQUIRED HYPOTHYROIDISM 04/06/2013 KELVIN GRULLON MD 496 CHRONIC AIRWAY OBSTRUCTION NOT ELSEWHERE CLASSIFIED 04/06/2013 KELVIN GRULLON MD 729.1 MYALGIA AND MYOSITIS UNSPECIFIED 04/06/2013 KELVIN GRULLON MD 780.79 OTHER MALAISE AND FATIGUE 04/06/2013 YURIY DDS EMELIA D 244.8 OTHER SPECIFIED ACQUIRED HYPOTHYROIDISM 04/06/2013 YURIY FERNANDOS EMELIA D 496 CHRONIC AIRWAY OBSTRUCTION NOT ELSEWHERE CLASSIFIED 04/06/2013 YURIY DDS EMELIA D 729.1 MYALGIA AND MYOSITIS UNSPECIFIED 04/06/2013 YURIY DDS, EMELIA D 780.79 OTHER MALAISE AND FATIGUE 07/06/2013 KELVIN GRULLON MD 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 07/06/2013 KELVIN GRULLON MD E958.9 SUICIDE AND SELF-INFLICTED INJURY BY UNSPECIFIED MEANS 07/06/2013 KELVIN GRULLON MD 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 07/06/2013 KELVIN GRULLON MD E958.9 SUICIDE AND SELF-INFLICTED INJURY BY UNSPECIFIED MEANS 07/06/2013 KELVIN GRULLON MD 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 07/06/2013 KELVIN GRULLON MD E958.9 SUICIDE AND SELF-INFLICTED INJURY BY UNSPECIFIED MEANS 07/06/2013 YURIY DDS, EMELIA D 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 07/06/2013 YURIY FERNANDOSEMELIA E958.9 SUICIDE AND SELF-INFLICTED INJURY BY UNSPECIFIED MEANS 10/26/2013 YADI CM, KELVIN Hill 381.81 EUSTACHIAN TUBE DYSFUNCTION 10/26/2013 KELVIN GRULLON MD 696.0 PSORIATIC ARTHROPATHY 10/26/2013 KELVIN GRULLON MD 381.81 EUSTACHIAN TUBE DYSFUNCTION 10/26/2013 KELVIN GRULLON MD 696.0 PSORIATIC ARTHROPATHY 10/26/2013 WHITE DDS, EMELIA D 381.81 EUSTACHIAN TUBE DYSFUNCTION 10/26/2013 WHITE DDS, EMELIA D 696.0 PSORIATIC ARTHROPATHY 03/22/2014 KELVIN GRULLON MD 110.5 DERMATOPHYTOSIS OF THE BODY 03/22/2014 WHITE EMELIA ROBISON 110.5 DERMATOPHYTOSIS OF THE BODY 08/14/2017 JONAH BELCHER S M4722 Other spondylosis with radiculopathy, cervical region 08/14/2017 JONAH BELCHER P M5010 Cervical disc disorder with radiculopathy, unspecified cervical region 08/28/2017 POLA BAUER MD P M5412 Radiculopathy, cervical region 09/11/2017 POLA BAUER MD P M5412 Radiculopathy, cervical region 11/06/2017 POLA BAUER MD P M5412 Radiculopathy, cervical region 12/18/2017 POLA BAUER MD P M5412 Radiculopathy, cervical region 06/23/2018 SHERRY CM, JALEN P Ot Z01.818 ENCOUNTER FOR OTHER PREPROCEDURAL EXAMIN Procedures Code [place] [address] PSYTX PT&/FAMILY 45 MINUTES 12/17/2012 15802 ROUTINE VENIPUNCTURE 04/06/2013 18676 CBC 04/06/2013 69196 CMP 04/06/2013 79159 LIPID PANEL 04/06/2013 1389647 GFR CALC (RESULT ONLY) 04/06/2013 45475 TSH 04/06/2013 72075 ESR/SED RATE 04/06/2013 S0630 SUTURE REMOVAL 07/31/2013 17926 CMP 10/27/2013 2164756 GFR CALC (RESULT ONLY) 10/27/2013 32151 CBC 10/27/2013 51413 SED/ESR RATE RML 10/27/2013 Rheumatol Blayne [place] 01/21/2014 69788 CMP 03/22/2014 5498229 GFR CALC (RESULT ONLY) 03/22/2014 14176 CBC 03/22/2014 72144 SED/ESR RATE RML 03/23/2014 34346 ROUTINE VENIPUNCTURE 03/30/2014 58222 ROUTINE VENIPUNCTURE 05/04/2014 46782 TSH 05/04/2014 Results Test Result Range TSH - 02/07/17 14:03 TSH 0.33 mIU/L NRG TSH - 07/04/17 15:24 TSH 0.53 mIU/L NRG LIPID PANEL - 08/04/17 08:31 CHOLESTEROL, TOTAL 283 mg/dL <200 HDL CHOLESTEROL 83 mg/dL >50 TRIGLYCERIDES 182 mg/dL <150 LDL-CHOLESTEROL 166 mg/dL (calc) NRG CHOL/HDLC RATIO 3.4 (calc) <5.0 NON HDL CHOLESTEROL 200 mg/dL (calc) <130 CBC - 08/04/17 08:31 WHITE BLOOD CELL COUNT 9.1 Thousand/uL 3.8-10.8 RED BLOOD CELL COUNT 4.62 Million/uL 3.80-5.10 HEMOGLOBIN 14.2 g/dL 11.7-15.5 HEMATOCRIT 41.2 % 35.0-45.0 MCV 89.2 fL 80.0-100.0 MCH 30.7 pg 27.0-33.0 MCHC 34.5 g/dL 32.0-36.0 RDW 12.3 % 11.0-15.0 PLATELET COUNT 395 Thousand/uL 140-400 MPV 9.8 fL 7.5-12.5 ABSOLUTE NEUTROPHILS 4459 cells/uL 1384-9294 ABSOLUTE LYMPHOCYTES 3567 cells/uL 850-3900 ABSOLUTE MONOCYTES 774 cells/uL 200-950 ABSOLUTE EOSINOPHILS 191 cells/uL 15-500 ABSOLUTE BASOPHILS 109 cells/uL 0-200 NEUTROPHILS 49 % NRG LYMPHOCYTES 39.2 % NRG MONOCYTES 8.5 % NRG EOSINOPHILS 2.1 % NRG BASOPHILS 1.2 % NRG Encounters ACCT No. Visit Date/Time Discharge Status Pt. Type Provider Facility Loc./Unit Complaint [id number] 05/05/2014 09:46:00 05/05/2014 23:59:59 CLS Outpatient EMELIA YAN DDS [id number] 03/22/2014 08:54:00 03/22/2014 23:59:59 CLS Outpatient KELVIN GRULLON MD [id number] 10/26/2013 09:08:00 10/26/2013 23:59:59 CLS Outpatient KELVIN GRULLON MD [id number] 07/06/2013 08:21:00 07/06/2013 23:59:59 CLS Outpatient KELVIN GRULLON MD [id number] 04/12/2013 15:10:00 04/12/2013 23:59:59 CLS Outpatient KELVIN GRULLON MD [id number] 02/15/2013 13:53:00 02/15/2013 23:59:59 CLS Outpatient KELVIN GRULLON MD [id number] 12/16/2012 09:43:00 12/16/2012 23:59:59 CLS Outpatient JOANA AGUILAR PSYD [id number] 07/28/2012 15:40:00 07/28/2012 23:59:59 CLS Outpatient CELY KHADAR Shahid [id number] 09/02/2012 13:20:00 Document Registration [id number] 06/26/2018 07:38:00 06/26/2018 13:10:00 DIS Outpatient JALEN POWELL MD [facility] SDC HYPERTROPHY TURBINATES [id number] 06/22/2018 05:28:00 06/22/2018 09:26:00 DIS Outpatient JALEN POWELL MD [facility] PREOP REDUCTION TURBINATES [id number] 04/25/2018 11:20:00 04/25/2018 23:59:59 CLS Outpatient KELVIN GRULLON MD [facility] [address] [id number] 08/04/2017 08:40:00 Document Registration [id number] 07/04/2017 14:00:00 Document Registration [id number] 02/07/2017 13:20:00 Document Registration [id number] 12/18/2017 08:17:00 12/18/2017 23:59:59 CLS Outpatient POLA BAUER MD BACK PAIN [id number] 11/06/2017 08:37:00 11/06/2017 14:04:00 DIS Outpatient POLA BAUER MD 012 [employer] TRE[employer] [id number] 09/11/2017 08:58:00 09/11/2017 12:37:00 DIS Outpatient POLA BAUER MD 012 EVAL AND TREAT [id number] 08/28/2017 09:18:00 08/28/2017 13:52:00 DIS Outpatient POLA BAUER MD 012 PAIN [id number] 08/14/2017 08:44:00 08/14/2017 11:54:00 DIS Outpatient JONAH BELCHER 012 EVAL AND TREAT
--- OUTSIDE RECORDS SUMMARY | 2018-06-28 08:33 | XMS REPORT ---
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 [...] Instructions Start Date End Date Status Dosage Meloxicam [facility] 40323555260 15 MG TAKE ONE-HALF TABLET BY MOUTH TWICE DAILY ProAir HFA [facility] [address]-41 108 (90 Base) MCG/ACT Inhalation every 4 hrs 2 puffs as needed Prozac [facility] [address]-21 40 MG Orally Once a day Mar 28, 2015 1 capsule in the morning fluticasone [facility] [address]-55 50 mcg/actuation Feb 17, 2013 2 sprays by Nasal route 1 time per day Zithromax Z-Sherif [facility] [address]-79 250 MG Orally Once a day Jan 15, 2016 Jan 20, 2016 2 tablets on the first day, then 1 tablet daily for 4 days Symbicort [facility] [address]-19 160-4.5 mcg/actuation October 26, 2013 inhale 2 puffs by inhalation route 2 times per day in the morning and evening Tramadol HCl [facility] [address]-53 50 MG Orally every 6 hrs 1 tablet as needed VESIcare [facility] [address]-09 10 MG Orally Once a day Mar 29, 2015 1 tablet Methotrexate Sodium ND 0 2.5 MG Orally October 26, 2013 6 Tablet by Oral route 1 time per week PredniSONE [facility] [address]-94 5 mg July 28, 2012 1 Tablet by Oral route 1 time per day trazodone ND 0 50 mg October 26, 2013 1 Tablet by Oral route 1 time per day at bedtime Levothyroxine Sodium [facility] 52079290190 88MCG Orally Once a day 1 tablet Levothyroxine Sodium [facility] [address]-27 88 MCG Orally Once a day 1 tablet Folic Acid [facility] [address]-28 July 28, 2012 by Oral route Procedures Procedure Coding System Code Date Office Visit, Est Pt., Level 3 CPT-4 71211 Jan 15, 2016 [facility] VISIT ESTABLISHED PATIENT CPT-4 G0467 Jan 15, 2016 Vital Signs Date/Time: Jan 15, 2016 Cardiac Monitoring Heart Rate 68 bpm Weight 143.2 lbs Height 65 in BMI 23.83 Index Blood Pressure Diastolic 80 mmHg Blood Pressure Systolic 112 mmHg Results No Known Results Summary Purpose eClinicalWorks Submission
--- OUTSIDE RECORDS SUMMARY | 2018-06-28 08:33 | XMS REPORT ---
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 Active 023905954 Problem Degenerative disc disease, cervical M50.30 Active 10939888 Problem Neck pain M54.2 Active 05419826 Problem COPD (chronic obstructive pulmonary disease) J44.9 Active 12905674 Problem Pubic bone pain M89.9 Active 69875228 Problem Hypothyroidism, unspecified E03.9 Active 74751990 Problem Environmental allergies Z91.09 Active 402516464 Problem Chronic fatigue R53.82 Active 37196768 Problem Increased frequency of urination R35.0 Active 712557740 Problem Major depressive disorder, recurrent, severe with psychotic symptoms F33.3 Active 19107744 Problem Suicide and self-inflicted injury by unspecified means E958.9 Active Problem Overactive bladder N32.81 Active 653140899 ALLERGIES Substance Reaction Event Type Date Status Naproxen Unknown Drug Allergy Jan, Active Cymbalta " Out of Space" Drug Allergy Jan, Active ENCOUNTERS Encounter Location Date Diagnosis [facility] [place] [address] [id number] [place] [id number] Jul, [facility] [place] [address] [id number] [place] [id number] Jul, Hypothyroidism, unspecified E03.9 [facility] [place] [address] [facility] [id number] [place] [id number] Jul, Degenerative disc disease, cervical M50.30 [facility] [place] [address] [facility] [address] [address] [id number] [place] [id number] Jul, Medicare annual wellness visit, initial Z00.00 ; Encounter for immunization Z23 ; Chronic obstructive pulmonary disease, unspecified J44.9 and Patient smokes within 5 minutes of waking Z72.0 [facility] [place] [address] [facility] [address] [id number] [place], [place] [id number] 15 Jun, 2017 Neck pain M54.2 and Degenerative disc disease, cervical M50.30 [facility] [place] [address] [facility] [address] [id number] [place] [id number] Jun, Osteoporosis M81.0 ; Hypothyroidism, unspecified E03.9 ; Neck pain M54.2 and COPD (chronic obstructive pulmonary disease) J44.9 [facility] [place] [address] [place] [address] [address] [id number] [place] [address] Mar, COPD (chronic obstructive pulmonary disease) J44.9 and Hypothyroidism, unspecified E03.9 [facility] [place] [address] [place] [address] [address] [id number] [place] [id number] Feb, [facility] [place] [address] [place] [address] [address] [id number] [place] [id number] Jan, Pubic bone pain M89.9 ; Chronic fatigue R53.82 ; COPD (chronic obstructive pulmonary disease) J44.9 and Hypothyroidism, unspecified E03.9 [facility] [place] [address] [place] [address] [address] [id number] [place] [address] Sep, [facility] [place] [address] [facility] [address] [id number] [place] [address] August, COPD (chronic obstructive pulmonary disease) J44.9 [facility] [place] [address] [facility] [address] [id number] [place] [id number] Apr, Environmental allergies Z91.09 [facility] [place] [address] [facility] [address] [id number] [place] [address] Apr, Environmental allergies Z91.09 [facility] [place] [address] [facility] [address] [id number] [place] [id number] Apr, Environmental allergies Z91.09 and COPD (chronic obstructive pulmonary disease) J44.9 [facility] [place] [address] [facility] [address] [id number] [place] [id number] Mar, [facility] [place] [address] [place] [address] [address] [id number] [place] [id number] Feb, COPD (chronic obstructive pulmonary disease) J44.9 [facility] [place] [address] [place] [address] [address] [id number] [place] [id number] Jan, Dysuria R30.0 [facility] [place] [address] [place] [address] [address] [id number] [place] [id number] Dec, Other specified bacterial agents as the cause of diseases classified elsewhere B96.89 and Acute sinusitis, unspecified J01.90 [facility] [place] [address] [place] [address] [address] [id number] [place] [id number] 13 Dec, 2015 Psoriatic arthritis L40.50 and Hypothyroidism, unspecified E03.9 [facility] [place] [address] [place] [address] [address] [id number] [place] [id number] 15 Oct, 2015 Osteoporosis M81.0 [facility] [place] [address] [place] [address] [address] [id number] [place] [id number] Oct, Psoriatic spondylitis L40.53 ; Osteoporosis M81.0 and Pubic bone pain M89.9 [facility] [place] [address] [place] [address] [address] [id number] [place] [address] Jun, Pelvic pain R10.2 and Other constipation K59.09 [facility] [place] [address] [place] [address] [address] [id number] [place] [id number] May, [facility] [place] [address] [place] [address] [address] [id number] [place] [id number] May, [facility] [place] [address] [place] [address] [address] [id number] [place] [address] May, [facility] [place] [address] [place] [address] [address] [id number] [place] [address] Apr, 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 and Chronic fatigue R53.82 [facility] [place] [address] [facility] [address] [id number] [place] [id number] Mar, [facility] [place] [address] [place] [address] [address] [id number] [place] [id number] Mar, [facility] [place] [address] [place] [address] [id number] [place] [id number] Mar, Overactive bladder N32.81 ; Increased frequency of urination R35.0 ; Hematuria R31.9 and Major depressive disorder, recurrent, severe with psychotic symptoms F33.3 [facility] [place] [address] [place] [address] [id number] [place] [id number] Jan, Increased frequency of urination R35.0 ; Overactive bladder N32.81 ; Major depressive disorder, recurrent, severe with psychotic symptoms F33.3 and Chronic fatigue R53.[address] [id number] [place] [id number] Jan, [facility] [address] [place] [address] [id number] [place] [id number] Dec, Influenza vaccine administered V04.81 ; 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 ; Nocturnal hypoxia 327.24 ; Current tobacco use 305.1 and Pneumococcal vaccination administered at current visit V49.[address] [id number] [place] [address] Oct, Nocturnal hypoxia 327.[address] [id number] [place] [address] Oct, 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 ; 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 and Other malaise and fatigue 780.[address] [id number] [place] [address] Oct, Other malaise and fatigue 780.[address] [id number] [place] [address] Oct, Unspecified hypothyroidism 244.9 ; Other malaise and fatigue 780.79 ; Asthma, unspecified, unspecified status 493.90 ; Rash and nonspecific skin eruption 782.1 ; Family history of breast cancer in female V16.3 ; H/O breast implant V43.82 and Other screening mammogram V76.12 [facility] [place] [id number] [place] [address] Sep, [address] [id number] [place] [id number] August, 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 ; Other malaise and fatigue 780.79 ; Exercise counseling V65.41 ; Unspecified hypothyroidism 244.9 and 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 [facility] [address] [id number] [address] Jul, [facility] [address] [id number], [place] [address] Jul, [facility] [place] [address] [facility] [address] [address] [id number] [place] [id number] May, [facility] [address] [id number], [place] [address] May, [facility] [address], [place] [address] May, [facility] [address] [id number], [place] [address] Apr, [facility] [place] [address] [facility] [address] [address] [id number] [place] [id number] Apr, [facility] [place] [address] [facility] [address] [id number] [place] [id number] Apr, [facility] [address] [id number], [place] [address] Apr, [facility] [address] [id number], [place] [address] Feb, [facility] [address] [id number], [place] [address] Feb, [facility] [place] [address] [facility] [address] [id number] [place] [id number] Feb, [facility] [place] [address] [facility] [address] [id number] [place] [address] Jan, [facility] [address] [id number], [place] [address] Jan, [facility] [id number] [place] [address] Oct, [facility] [place] [address] [facility] [address] [id number] [place] [id number] Oct, [facility] [address] [facility] [id number] [facility] [address] Oct, [facility] [place] [facility] [address] [facility] [id number] [facility] [place] [address] Jun, [facility] [place] [address] [facility] [address] [id number] [place] [id number] Jun, [facility] [place] [address] [facility] [address] [id number] [place] [id number] Apr, [facility] [address] [facility] [id number] [facility] [place] [address] Apr, [facility] [place] [address] [facility] [address] [id number] [place] [address] Mar, [facility] [address] [facility] [id number] [place] [address] Mar, [facility] [place] [facility] [address] [facility] [id number] [facility] Mar, [facility] [place] [address] [facility] [address] [id number] [place] [address] Mar, [facility] [place] [address] [facility] [address] [id number] [place] [id number] Feb, [facility] [place] [facility] [address] [facility] [id number] [facility] [place] [address] Feb, [facility] [place] [address] [facility] [address] [id number] [place] [address] Jan, [facility] [place] [address] [facility] [address] [id number] [place] [id number] Jan, [facility] [place] [facility] [address] [facility] [id number] [place] [address] Jan, [facility] [place] [facility] [address] [facility] [id number] [place] [address] Jan, [facility] [address] [id number] [place] [address] Jan, [facility] [place] [address] [id number] [place] [address] Jan, [facility] [place] [address] [id number] [place] [address] Jan, [facility] [place] [facility] [address] [id number] [place] [address] Jan, [facility] [place] [address] [id number] [place] [address] Dec, [facility] [place] [facility] [address] [id number] [place] [address] Dec, [facility] [place] [facility] [address] [id number] [place] [address] Nov, [facility] [place] [facility] [address] [id number] [place] [address] Oct, [facility] [place] [facility] [address] [id number] [place] [address] Oct, [facility] [place] [facility] [address] [id number] [place] Oct, [facility] [place] [facility] [address] [facility] [id number] [place] [address] Oct, [facility] [place] [facility] [address] [id number], [place] [address] August, [facility] [place] [facility] [address] [id number] [place] [address] August, [facility] [place] [facility] [address] [id number] [place] [address] August, [facility] [place] [facility] [address] [id number] [place] [address] August, [facility] [place] [facility] [address] [id number], [place] [address] Jul, [facility] [address] [facility] [id number] [place] [address] Jul, IMMUNIZATIONS No Known Immunizations SOCIAL HISTORY Never Assessed REASON FOR VISIT Leg pain. Pain in groin area. Samuel Rodriguez PLAN OF CARE Activity Details Follow Up prn, 2 Weeks Reason:pubic pain VITAL SIGNS Height 65 in 2017-02-07 Weight 142.4 lbs 2017-02-07 Temperature 98.4 degrees Fahrenheit 2017-02-07 Heart Rate 98 bpm 2017-02-07 Respiratory Rate 18 2017-02-07 BMI 23.69 kg/m2 2017-02-07 Blood pressure systolic 128 mmHg 2017-02-07 Blood pressure diastolic 84 mmHg 2017-02-07 MEDICATIONS Medication Instructions Dosage Frequency Start Date End Date Duration Status Benadryl 50 mg Orally once or twice a day as needed for allergies Active Budesonide 0.5 MG/2ML USE 1 AMPULE FOUR TIMES DAILY PER NEBULIZER 30 Active Claritin 10 MG Orally Once a day 1 tablet 24h Active PredniSONE 20 MG 2 tabs for 3 days then 1 tablet for 4 days Active Albuterol Sulfate (2.5 MG/3ML) 0.083% Inhalation 4 times a day 3 ml 6h 30 Active fluticasone 50 mcg/actuation 2 sprays by Nasal route 1 time per day Jan, Active trazodone 50 mg 1 Tablet by Oral route 1 time per day at bedtime Oct Active Incruse Ellipta 62.5 MCG/INH Inhalation Once a day 1 puff 24h August, Active Prozac Active Albuterol Sulfate (2.5 MG/3ML) 0.083% USE 1 AMPULE FOUR TIMES DAILY PER NEBULIZER 30 Active Meloxicam 15 MG TAKE ONE-HALF TABLET BY MOUTH TWICE DAILY 30 Active Levothyroxine Sodium 88MCG Orally Once a day 1 tablet 24h 90 Active ProAir HFA 108 (90 Base) MCG/ACT Inhalation every 4 hrs 2 puffs as needed 4h Active Tramadol HCl 50 MG Orally every 6 hrs 1 tablet as needed 6h Active RESULTS No Results PROCEDURES Procedure Date Ordered Result Body Site [facility] VISIT ESTABLISHED PATIENT Feb 07, 2017 [place], ROUTINE* Feb 07, 2017 LAB NOT BILLED BY [facility] Feb 07, 2017 INSTRUCTIONS MEDICATIONS ADMINISTERED No Known Medications [...]
--- OUTSIDE RECORDS SUMMARY | 2018-06-28 08:33 | XMS REPORT | Clinical Summary ---
Author Author Admin, HOMA Organization [facility] Address Unknown Phone Allergies, Adverse Reactions, Alerts Allergy Name Reaction Description Start Date Severity Status Provider NAPROSMARIA LUISA Critical Active Loc Varela MD Conditions or Problems Problem Name Problem Code Onset Date Status Entry Date Provider Comment Standard Description Annotate FH BREAST CANCER V16.3 Active Loc Varela MD Family history of malignant neoplasm of breast ATROPHY OF BREAST 611.4 Active Loc Varela MD Atrophy of breast AFTERCARE FOLLOW SURGERY MUSCULOSKEL SYSTEM NEC V58.78 Active Loc Varela MD Aftercare following surgery of the musculoskeletal system, NEC LASSITUDE 780.79 Active Loc Varela MD Other malaise and fatigue Medication List Medication Instructions Start Date Stop Date Generic Name [facility] Status Provider Patient Instruction LEVOTHYROXINE SODIUM 88 MCG TABS Take 1 tab daily LEVOTHYROXINE SODIUM 55488134475 Active Emilie Dhillon OTC CLERK Active ZITHROMAX Z-AMERICA 250 MG TABS DIRECTED AZITHROMYCIN 01336813281 Active Angella Su RN Active HYDROCODONE-ACETAMINOPHEN 5-325 MG TABS 1 -2 q 4-6 hrs prn HYDROCODONE-ACETAMINOPHEN 33929415727 Active Yoni Wade Active VITAMINS TABS 1 tab daily MV & MIN W/FE-FA TABS 05687940933 Active Vidhi Grimes RN Active ALPRAZOLAM 0.25 MG TABS 1 tab at night. ALPRAZOLAM 25506246333 Active Vidhi Grimes RN Active FOSAMAX 70 MG TABS 1 Tab weekly ALENDRONATE SODIUM 07715509017 Active Vidhi Grimes RN Active MELOXICAM 7.5 MG TABS 1 bid MELOXICAM 18593433212 Active Loc Varela MD Active PREDNISONE 5 MG TABS 1 qd PREDNISONE 57031867806 Active Loc Varela MD Active RHEUMATREX 2.5 MG TABS 6 tab 1 x week METHOTREXATE (ANTI- RHEUMATIC) 11191540463 Active Loc Varela MD Active Procedures Code Procedure Name Date Entry Date Standard Description CPT-39405 Postop F/U Visit 15:37:09 [employer]AGE [employer]ILY [employer] WORKER CPT-36099 Postop F/U Visit 10:56:01 [employer] FAMILY SOC[employer] WORKER CPT-83766 No Charge Offi Visit 17:24:07 [employer]RIAGE [employer] FAMILY SOCIAL WORKER
== END 2018-06-26 13:10 | disposition home or self-care (01) ==
LOC: SDC 07:38
PROVIDERS: ATTEND Otolaryngology Otolaryngology/Facial Plastic Surgery
DX: J34.3 Hypertrophy of nasal turbinates (principal); J44.9 Chronic obstructive pulmonary disease, unspecified; F17.210 Nicotine dependence, cigarettes, uncomplicated; Z79.899 Other long term (current) drug therapy
CPT/HCPCS: 87081